=== PATIENT | female | born 1950 | race Caucasian/White ===

== ENCOUNTER → 2024-06-13 | Outpatient (CLI) | payer MEDICARE, BC, SELFPAY ==
[2024-06-13 11:35] LABS: Basophils # (Auto) 0.1 Thou/mm3 (0.0-0.2); Basophils % (Auto) 1 % (0-2.5); Eosinophils # (Auto) 0.5 Thou/mm3 (0.0-0.5); Eosinophils % (Auto) 6 % (0-10); Hematocrit 39.1 % (36.0-46.0); Immature Granulocytes % (Auto) 0 % (0-0); Immature Granulocytes Auto 0.03 Thou/mm3 (0.00-0.00); Lymphocytes # (Auto) 2.3 Thou/mm3 (1.0-4.8); Lymphocytes % (Auto) 24 % (10-50); Mean Corpuscular HGB Conc 33.2 g/dl (31.0-37.0); Mean Corpuscular Hemoglobin 29.7 pg (25.0-35.0); Mean Corpuscular Volume 89 fL (80-100); Monocytes # (Auto) 0.5 Thou/mm3 (0.0-0.8); Monocytes % (Auto) 5 % (0-12); Neutrophils % (Auto) 64 % (37-80); Nucleated Red Blood Cell % 0 /100 WBC (0); Platelet Count 353 Thou/mm3 (140-440); Red Blood Count 4.38 Miln/mm3 (4.00-5.20); White Blood Count 9.5 Thou/mm3 (3.6-11.0)
[2024-06-13 11:50] LABS: Glucose Estimated Average 117 mg/dL (80-131); Hemoglobin A1C 5.7 % Hgb (4.8-6.0)
[2024-06-13 12:00] LABS: Alanine Aminotransferase 22 U/L (10-49); Albumin, Serum 4.7 gm/dL (3.4-4.8); Albumin/Globulin Ratio 1.8 (1.2-2.2); Alkaline Phosphatase 104 U/L (46-116); Anion Gap 6 (7-16); Aspartate Amino Transferase 18 U/L (0-34); BUN/Creatinine Ratio 12 Ratio (12-20); Bilirubin,Total 0.3 mg/dL (0.3-1.2); Blood Urea Nitrogen 15 mg/dL (9-23); Calcium 10.9 mg/dL (8.3-10.6); Calcium (Corrected) 10.9 mg/dL (8.5-10.1); Carbon Dioxide 27.3 mMol/L (20.0-31.0); Cardiac Risk Estimate 3.6 RATIO (3.7-5.6); Chloride 96 mMol/L (98-107); Cholesterol 193 mg/dL (132-200); Creatinine (Component) 1.3 mg/dL (0.6-1.3); Globulin 2.6 gm/dL (2.3-3.5); Glucose 95 mg/dL (74-106); HDL Cholesterol 54 mg/dL (40-60); LDL Cholesterol,Calculated 102 mg/dL (0-130); Osmolality,Calculated 259 (275-295); Potassium 4.9 mMol/L (3.4-5.1); Sodium 129 mMol/L (136-145); Total Protein 7.3 gm/dL (5.7-8.2); Triglycerides 185 mg/dL (30-150); eGFR 44 See Note
[2024-06-13 12:12] LABS: Ferritin 40 ng/mL (7.3-270.7); Iron 48 mcg/dL (50-170)
== END | disposition home or self-care (01) ==
LOC: COPL 10:32
PROVIDERS: PCP Family Medicine; Referring Provider Physician Assistant; Visit Provider Physician Assistant
DX: E11.9 Type 2 diabetes mellitus without complications (principal); I10 Essential (primary) hypertension; E78.5 Hyperlipidemia, unspecified; D50.9 Iron deficiency anemia, unspecified
CPT/HCPCS: 36415; 80053; 80061; 82728; 83036; 83540; 85025

== ENCOUNTER → 2024-06-20 | Outpatient (CLI) | payer MEDICARE, BC, SELFPAY ==
[2024-06-20 12:17] LABS: Collection Type, Urine Clean Catch
[2024-06-20 13:25] LABS: Bacteria,Urine 2+; Bilirubin,Urine Negative (Negative); Blood,Urine Trace (Negative); Color,Urine Lt-Yellow (Lt Yel-Yel); Glucose, Urine Negative (Negative); Ketones,Urine Negative (Negative); Leukocyte Esterase,Urine Positive (Negative); Nitrite,Urine Positive (Negative); PH,Urine 6.5 (5.0-7.0); Protein,Urine Trace (Neg - Trace); RBC,Urine 14 /hpf (0-3); Specific Gravity,Urine 1.008 (1.001-1.035); Squamous Epithelial Cell,Urine 1 /hpf (0-5); Urobilinogen,Urine Negative mg/dL (0.0-1.0); WBC,Urine 639 /hpf (0-5)
[2024-06-20 13:32] LABS: Clarity,Urine Hazy (Clear/Hazy)
== END | disposition home or self-care (01) ==
LOC: SLDO 12:10
PROVIDERS: PCP Physician Assistant; Referring Provider Physician Assistant; Visit Provider Physician Assistant
DX: N39.0 Urinary tract infection, site not specified (principal)
CPT/HCPCS: 81001; 87077; 87086; 87186

== ENCOUNTER → 2024-06-26 | Outpatient (CLI) | payer MEDICARE, BC, SELFPAY ==
[2024-06-25 12:29] LABS: Basophils # (Auto) 0.1 Thou/mm3 (0.0-0.2); Basophils % (Auto) 1 % (0-2.5); Eosinophils # (Auto) 0.4 Thou/mm3 (0.0-0.5); Eosinophils % (Auto) 3 % (0-10); Hematocrit 35.8 % (36.0-46.0); Immature Granulocytes % (Auto) 1 % (0-0); Immature Granulocytes Auto 0.06 Thou/mm3 (0.00-0.00); Lymphocytes # (Auto) 2.1 Thou/mm3 (1.0-4.8); Lymphocytes % (Auto) 18 % (10-50); Mean Corpuscular HGB Conc 33.5 g/dl (31.0-37.0); Mean Corpuscular Hemoglobin 29.3 pg (25.0-35.0); Mean Corpuscular Volume 87 fL (80-100); Monocytes # (Auto) 0.8 Thou/mm3 (0.0-0.8); Monocytes % (Auto) 7 % (0-12); Neutrophils % (Auto) 70 % (37-80); Nucleated Red Blood Cell % 0 /100 WBC (0); Platelet Count 353 Thou/mm3 (140-440); RDW Standard Deviation 39.3 fL (36.4-46.3); White Blood Count 11.3 Thou/mm3 (3.6-11.0)
[2024-06-25 12:36] LABS: Partial Thromboplastin Time 29.7 Seconds (22.0-36.0); Prothrombin Time 10.7 Seconds (9.0-12.2)
--- NOTE | 2024-06-26 08:30 | XR_ITS ---
Examination: Stereotactic guided vacuum assisted left breast biopsy with clip placement Specimen radiograph Date and time of exam:June 26, 2024 0954 hours INDICATIONS: Mammogram 05/05/2024 BI-RADS 4 suspicious microcalcifications 12 Position left breast Timeout performed, documenting correct patient, order, referring physician, patient's site and reason for procedure, allergies to medications Informed consent provided. Time out performed Technique: The lesion left breast was localized with a stereotactic apparatus. Local anesthesia was obtained after prepping the skin at the entrance site and applying sterile drape Maximum sterile barrier technique. 5 core biopsies were then obtained, vacuum assisted, stereotactically guided, at the lesion site. Specimens appear adequate. Stereotactic breast marker was introduced at the lesion site Estimated blood loss 2 cc. Patient tolerated the procedure well and appeared in satisfactory and stable condition at completion of the procedure Pathology report to follow Impression: Successful stereotactic breast biopsy as described above. Specimen radiograph contains the biopsied suspicious microcalcifications.
== END | disposition home or self-care (01) ==
LOC: CDIM 07:56
PROVIDERS: Radiology Diagnostic Radiology; PCP Physician Assistant; Referring Provider Physician Assistant; Visit Provider Physician Assistant
DX: N62 Hypertrophy of breast (principal); N60.12 Diffuse cystic mastopathy of left breast; R92.1 Mammographic calcification found on diagnostic imaging of breast; Z01.812 Encounter for preprocedural laboratory examination
CPT/HCPCS: 19081; 36415; 85025; 85610; 85730; A4648; A4649

== ENCOUNTER → 2024-07-15 | Outpatient (CLI) | payer MEDICARE, BC, SELFPAY ==
[2024-07-14 11:10] LABS: Basophils # (Auto) 0.1 Thou/mm3 (0.0-0.2); Basophils % (Auto) 1 % (0-2.5); Eosinophils # (Auto) 0.4 Thou/mm3 (0.0-0.5); Eosinophils % (Auto) 4 % (0-10); Hematocrit 38.4 % (36.0-46.0); Hemoglobin 12.9 g/dL (12.0-16.0); Immature Granulocytes % (Auto) 0 % (0-0); Immature Granulocytes Auto 0.03 Thou/mm3 (0.00-0.00); Lymphocytes # (Auto) 2.4 Thou/mm3 (1.0-4.8); Lymphocytes % (Auto) 27 % (10-50); Mean Corpuscular HGB Conc 33.6 g/dl (31.0-37.0); Mean Corpuscular Hemoglobin 29.8 pg (25.0-35.0); Mean Corpuscular Volume 89 fL (80-100); Monocytes # (Auto) 0.6 Thou/mm3 (0.0-0.8); Monocytes % (Auto) 7 % (0-12); Neutrophils # (Auto) 5.5 Thou/mm3 (1.8-7.7); Neutrophils % (Auto) 61 % (37-80); Nucleated Red Blood Cell % 0 /100 WBC (0); Platelet Count 359 Thou/mm3 (140-440); RDW Standard Deviation 39.6 fL (36.4-46.3); Red Blood Count 4.33 Miln/mm3 (4.00-5.20)
[2024-07-14 11:26] LABS: Partial Thromboplastin Time 32.3 Seconds (22.0-36.0); Prothrombin Time 10.7 Seconds (9.0-12.2)
--- NOTE | 2024-07-15 08:30 | XR_ITS ---
Examination: Stereotactic guided vacuum assisted left breast biopsy with clip placement Specimen radiograph Date and time of exam:July 15, 2024 0957 hours INDICATIONS: BI-RADS Category 4 suspicious microcalcifications left breast 2:00 position Timeout performed, documenting correct patient, order, referring physician, patient's site and reason for procedure, allergies to medications Informed consent provided. Time out performed Technique: The lesion left breast was localized with a stereotactic apparatus. Local anesthesia was obtained after prepping the skin at the entrance site and applying sterile drape Maximum sterile barrier technique. 5 core biopsies were then obtained, vacuum assisted, stereotactically guided, at the lesion site. Specimens appear adequate. Stereotactic breast marker was introduced at the lesion site Estimated blood loss 2 cc. Patient tolerated the procedure well and appeared in satisfactory and stable condition at completion of the procedure Pathology report to follow Impression: Successful stereotactic breast biopsy as described above. Specimen radiograph contains the biopsied suspicious microcalcifications.
[2024-07-15 08:50] LABS: Alanine Aminotransferase 18 U/L (10-49); Albumin, Serum 4.4 gm/dL (3.4-4.8); Albumin/Globulin Ratio 1.6 (1.2-2.2); Alkaline Phosphatase 94 U/L (46-116); Anion Gap 7 (7-16); Aspartate Amino Transferase 18 U/L (0-34); BUN/Creatinine Ratio 10 Ratio (12-20); Bilirubin,Total 0.4 mg/dL (0.3-1.2); Blood Urea Nitrogen 12 mg/dL (9-23); Carbon Dioxide 27.3 mMol/L (20.0-31.0); Chloride 98 mMol/L (98-107); Creatinine (Component) 1.2 mg/dL (0.6-1.3); Globulin 2.7 gm/dL (2.3-3.5); Glucose 106 mg/dL (74-106); Osmolality,Calculated 264 (275-295); Potassium 4.8 mMol/L (3.4-5.1); Sodium 132 mMol/L (136-145); Total Protein 7.1 gm/dL (5.7-8.2); eGFR 48 See Note
== END | disposition home or self-care (01) ==
LOC: CDIM 07-17 08:45
PROVIDERS: Radiology Diagnostic Radiology; PCP Physician Assistant; Referring Provider Surgery; Visit Provider Surgery
DX: D24.2 Benign neoplasm of left breast (principal); Z01.812 Encounter for preprocedural laboratory examination
CPT/HCPCS: 19081; 36415; 80053; 83970; 85025; 85610; 85730; A4648; A4649

== ENCOUNTER → 2024-09-19 | Outpatient (CLI) | payer MEDICARE, BC, SELFPAY ==
[2024-09-19 13:21] LABS: Basophils # (Auto) 0.1 Thou/mm3 (0.0-0.2); Basophils % (Auto) 1 % (0-2.5); Eosinophils # (Auto) 0.1 Thou/mm3 (0.0-0.5); Eosinophils % (Auto) 2 % (0-10); Hematocrit 38.1 % (36.0-46.0); Hemoglobin 13.2 g/dL (12.0-16.0); Immature Granulocytes % (Auto) 0 % (0-0); Immature Granulocytes Auto 0.02 Thou/mm3 (0.00-0.00); Lymphocytes % (Auto) 26 % (10-50); Mean Corpuscular HGB Conc 34.6 g/dl (31.0-37.0); Mean Corpuscular Volume 87 fL (80-100); Monocytes # (Auto) 0.4 Thou/mm3 (0.0-0.8); Monocytes % (Auto) 6 % (0-12); Neutrophils # (Auto) 5.2 Thou/mm3 (1.8-7.7); Neutrophils % (Auto) 66 % (37-80); Nucleated Red Blood Cell % 0 /100 WBC (0); Platelet Count 290 Thou/mm3 (140-440); RDW Standard Deviation 39.3 fL (36.4-46.3); White Blood Count 7.8 Thou/mm3 (3.6-11.0)
[2024-09-19 13:35] LABS: Alanine Aminotransferase 35 U/L (10-49); Albumin, Serum 4.3 gm/dL (3.4-4.8); Albumin/Globulin Ratio 1.8 (1.2-2.2); Alkaline Phosphatase 94 U/L (46-116); Anion Gap 6 (7-16); Aspartate Amino Transferase 30 U/L (0-34); BUN/Creatinine Ratio 13 Ratio (12-20); Bilirubin,Total 0.2 mg/dL (0.3-1.2); Blood Urea Nitrogen 13 mg/dL (9-23); Calcium 10.5 mg/dL (8.3-10.6); Calcium (Corrected) 10.5 mg/dL (8.5-10.1); Carbon Dioxide 26.6 mMol/L (20.0-31.0); Cardiac Risk Estimate 3.5 RATIO (3.7-5.6); Chloride 100 mMol/L (98-107); Cholesterol 208 mg/dL (132-200); Globulin 2.4 gm/dL (2.3-3.5); Glucose 96 mg/dL (74-106); HDL Cholesterol 59 mg/dL (40-60); LDL Cholesterol,Calculated 124 mg/dL (0-130); Osmolality,Calculated 266 (275-295); Potassium 5.2 mMol/L (3.4-5.1); Sodium 133 mMol/L (136-145); Total Protein 6.7 gm/dL (5.7-8.2); Triglycerides 126 mg/dL (30-150); eGFR 60 See Note
[2024-09-19 13:59] LABS: Glucose Estimated Average 117 mg/dL (80-131); Hemoglobin A1C 5.7 % Hgb (4.8-6.0)
[2024-09-19 15:13] LABS: Ferritin 56 ng/mL (7.3-270.7)
[2024-09-19 15:24] LABS: Iron 46 mcg/dL (50-170)
== END | disposition home or self-care (01) ==
LOC: COPL 12:18
PROVIDERS: PCP Physician Assistant; Referring Provider Physician Assistant; Visit Provider Physician Assistant
DX: I10 Essential (primary) hypertension (principal); E11.9 Type 2 diabetes mellitus without complications; E78.5 Hyperlipidemia, unspecified; D50.9 Iron deficiency anemia, unspecified
CPT/HCPCS: 36415; 80053; 80061; 82728; 83036; 83540; 85025

== ENCOUNTER → 2024-10-16 | Outpatient (CLI) | payer MEDICARE, BC, SELFPAY ==
[2024-10-16 18:11] LABS: Alanine Aminotransferase 38 U/L (10-49); Albumin, Serum 4.5 gm/dL (3.4-4.8); Albumin/Globulin Ratio 1.9 (1.2-2.2); Alkaline Phosphatase 90 U/L (46-116); Anion Gap 8 (7-16); Aspartate Amino Transferase 29 U/L (0-34); BUN/Creatinine Ratio 13 Ratio (12-20); Bilirubin,Total 0.4 mg/dL (0.3-1.2); Blood Urea Nitrogen 15 mg/dL (9-23); Calcium 10.8 mg/dL (8.3-10.6); Calcium (Corrected) 10.8 mg/dL (8.5-10.1); Carbon Dioxide 24.7 mMol/L (20.0-31.0); Chloride 95 mMol/L (98-107); Creatinine (Component) 1.2 mg/dL (0.6-1.3); Globulin 2.4 gm/dL (2.3-3.5); Glucose 92 mg/dL (74-106); Osmolality,Calculated 257 (275-295); Potassium 4.9 mMol/L (3.4-5.1); Sodium 128 mMol/L (136-145); Total Protein 6.9 gm/dL (5.7-8.2); eGFR 48 See Note
== END | disposition home or self-care (01) ==
PROVIDERS: PCP Physician Assistant; Referring Provider Physician Assistant; Visit Provider Physician Assistant
DX: E87.5 Hyperkalemia (principal)
CPT/HCPCS: 36415; 80053

== ENCOUNTER 2024-10-26 09:38 | Inpatient (IN) | payer MEDICARE, BC, SELFPAY ==
[2024-10-26] VITALS (8 sets, daily range): BP systolic 113–182; BP diastolic 55–92; PULSE 82–114; RESP 16–96; TEMP 36–36.9; O2SAT 91–99; BMI 27.3
--- NOTE | 2024-10-26 10:25 | XR_ITS ---
EXAMINATION: Abdomen, upright single view Technique: Abdomen AP upright, single view Date and time of exam: October 26, 2024 0930 hours INDICATIONS: Abdominal pain nausea today FINDINGS: Small bowel differential air-fluid levels in the central abdomen Moderate stool in the rectum No free air IMPRESSION: Small bowel obstruction pattern, consider CT scan abdomen and pelvis post intravenous contrast follow-up
--- NOTE | 2024-10-26 10:25 | EKG_ITS ---
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
--- NOTE | 2024-10-26 10:30 | PD.EDRME ---
Rapid Medical Screening Exam RME Arrival date/time: 10/26/24 09:38 This is a 74-year-old female presents to the emergency department complaints of epigastric abdominal pain nausea and vomiting since 2 AM. History of DM. I have greeted and performed a focused initial assessment of this patient. Initial appropriate labs ordered at this time. A comprehensive ED assessment and evaluation of the patient and analysis of all test and completion of medical decision making process will be conducted by additional ED provider. Chief Complaint: Abdominal Pain Time Seen by Provider: 10/26/24 10:16 Vital signs: Vital Signs Temperature 97.7 F 10/26/24 10:07 Pulse Rate 86 10/26/24 10:07 Respiratory Rate 30 H 10/26/24 10:07 Blood Pressure 182/84 H 10/26/24 10:07 Pulse Oximetry (%) 97 10/26/24 10:07 Oxygen Delivery Method Room Air 10/26/24 10:07
--- NOTE | 2024-10-26 10:31 | XR_ITS ---
Examination: Abdomen sonogram, Limited Date and time of exam: October 26, 2024 at 1040 hours INDICATIONS: Epigastric pain and vomiting beginning today Technique: Real-time hawthorne scale transabdominal sonographic images of the upper abdomen obtained. Findings: Gallstones and gallbladder sludge Gallbladder wall 0.38 cm no edema Common bile flexor 0.5 cm Pancreatic head 1.6 cm Liver 15.7 cm no focal liver lesions, fatty infiltration is present Normal hepatopedal portal venous flow Patent IVC IMPRESSION: Cholelithiasis Abnormal thickening of the gallbladder wall 0.38 cm, consider HIDA scan or MRCP follow-up as clinically warranted
--- NOTE | 2024-10-26 10:32 | XR_ITS ---
Examination: CT abdomen and pelvis without contrast. Coronal 3-D reconstructions. Sagittal 2-D reconstructions. Date and time of exam:March 28, 2025 at 10:44 AM INDICATIONS: Upper abdominal pain onset today, history nephrectomy, left 4 solid left renal tumor 5.[address] March 08, 2023 CTDI: vol (mGy): 8.25 DLP: (mGycm): 477 Technique: Axial images of the abdomen have been obtained, 3 mm slice thickness Intravenous contrast material has not been administered. Low dose protocols were performed. One or more of the following dose reduction techniques were used; automated exposure control, adjustment of the mA and/or KV according to patient size, use of iterative reconstruction technique. Findings: Minimal pericardial effusion Liver mildly irregular in contour No gallstones No pancreatic or adrenal mass Absent left kidney No right renal mass Multiple prominently fluid distended small bowel loops. Heavy abdominal aortic calcification Appendix does not appear enlarged No diverticulitis No pelvic mass Urinary bladder is intact Significant degenerative disc disease L4-L5 IMPRESSION: High-grade mechanical small bowel obstruction pattern, consider Gastrografin small bowel series follow-up
[2024-10-26] MEDS: ONDANSETRON INJ 2 MG/ML INJ 2 ML 4 MG IV (11:12)
[2024-10-26] MEDS: MORPHINE SULF INJ 10 MG/ML VIAL 5 MG IVP ×2 (11:13→12:11)
--- NOTE | 2024-10-26 11:33 | PD.EDABDPN ---
ED Abdominal Pain RME/HPI General Chief Complaint: Abdominal Pain Stated complaint: ABDOMINAL PAIN Time seen by provider: 10/26/24 10:16 Arrival date/time: 10/26/24 09:38 RME / HPI RME / HPI narrative: 10/26/24 09:38 This is a 74-year-old female presents to the emergency department complaints of epigastric abdominal pain nausea and vomiting since 2 AM. History of DM. I have greeted and performed a focused initial assessment of this patient. Initial appropriate labs ordered at this time. A comprehensive ED assessment and evaluation of the patient and analysis of all test and completion of medical decision making process will be conducted by additional ED provider. DR. SOLANO MAIN ED EVALUATION: 74 year old female presents to the Emergency Department accompanied by her with complaint of upper abdominal pain since 230 AM. Pain is described as aching and rated severe. Patient denies any of the following: back pain, shortness of breath, blood in the stools, or any other symptoms at this time. PMHx: Left nephrectomy due to renal cysts. Hypertension, hypercholesterolemia, diabetes type 2, and depression. Social Hx: No tobacco, alcohol, or substance use. Related Data Home Medications ?Medication ?Instructions ?Recorded ?Confirmed VALSARTAN/HYDROCHLOROTHIAZIDE 1 tab PO QAMAC ##0 11/10/14 05/05/24 (VALSARTAN-HCTZ 320-25 MG TAB) metformin 500 mg tablet 500 mg PO TID #0 tabs 11/10/14 05/05/24 (Glucophage) omeprazole 20 mg capsule,delayed 20 mg PO QDAY ##0 11/10/14 05/05/24 release (Prilosec) Aspirin Ec * (ECOTRIN *) 81 mg PO QDAY ##0 11/11/14 05/05/24 Cyanocobalamin (Vitamin B-12) ##0 11/11/14 05/05/24 (B-12) cholecalciferol (vitamin D3) 50 2,000 unit PO #0 caps 11/11/14 05/05/24 mcg (2,000 unit) capsule (D3-2000) aripiprazole 10 mg tablet 10 mg PO QDAY 03/12/23 05/05/24 duloxetine 30 mg capsule,delayed 30 mg PO QDAY 03/12/23 05/05/24 release pioglitazone 15 mg tablet 15 mg PO QDAY 08/27/23 05/05/24 Allergies Allergy/AdvReac Type Severity Reaction Status Date / Time No Known Allergies Allergy Unverified 10/26/24 11:43 Review of Systems Review of Systems Systems Reviewed: All systems reviewed, normal except as documented Narrative Review of Systems: Constitutional: DENIES: fevers; Eyes: DENIES: loss of vision; Head/Ear/Nose: DENIES: loss of hearing. Throat: DENIES: dysphagia. Cardiovascular: DENIES: chest pain, dyspnea, or syncope. Respiratory: DENIES: shortness of breath; Gastrointestinal: POSITIVES: upper abdominal pain DENIES: rectal bleeding or melena. Genitourinary: DENIES: dysuria (painful or difficult urination); Musculoskeletal: DENIES: arthralgia (pain in a joint); Skin: DENIES: rash; Neurological: DENIES: loss of function or movement; Psychiatric: DENIES: recent major life stressor, emotional problem, illicit drug use or abuse; Endocrinology: DENIES: weight change,; Hematologic/Lymphatic: DENIES: abnormal bruising. Allergic/Immunologic: DENIES: urticaria (hives). Past Medical History Past Medical History CARDIAC: Positive Heart Murmur, Hypercholesterolemia and Hypertension RESPIRATORY: Positive Bronchitis and Pneumonia REPRODUCTIVE: Positive Previous Pregnancies (2) ENDOCRINE: Positive Diabetes Mellitus Type 2 PSYCHO/SOCIAL: Positive Depression Social History SMOKING STATUS: Never smoker SUBSTANCE USE: does not use ALCOHOL: Never ED Exam Narrative Physical exam: Physical Exam: General: The vital signs were reviewed. The patient is non-toxic, in no apparent distress and appears healthy with a patent airway, no respiratory distress and has no apparent circulatory problems. Head & Scalp: Normocephalic, atraumatic. Face: Appears normal and is without lesions, deformity. Ears: Left external pinna appears normal. Right external pinna appears normal. Eyes: The sclera is anicteric. No obvious photophobia. The Left and Right Orbit/Lid/Conjunctiva appears normal without swelling, discoloration or injection. Nose: The nose is without deformity, discharge or tenderness; Throat: Appears normal. The mucous membranes are pink and moist without exudates, redness or mass seen. The tongue appears normal. Neck: The neck is supple and no apparent mass or adenopathy. Chest: The chest wall is normal in size and symmetry and has no chest wall tenderness or crepitus. The patient displays normal ventilator effort without retractions, accessory muscle use and has adequate air movement bilaterally with no wheezes and no rales. Cardiovascular: Regular rate and rhythm; No murmurs, rubs, or gallops; Gastrointestinal: The abdomen appears normal. No obvious hernias or mass. The abdomen has exquisite central abdominal pain with hypoactive bowel sounds. Pain appears to be more upper central abdominal pain but also has pain when you push on the left lower quadrant also. She does guard. Bowel sounds are present and normal sounding. No CVA tenderness. Genitourinary: Back/Spine: Normal nontender Extremities/Musculoskeletal/lymphatic: The bilateral upper and lower extremities are warm. There is no evidence of arterial insufficiency. There is no evidence of venous insufficiency/edema. The patient spontaneously moves bilateral upper and lower extremities with no pain and no limitation of movement. There is no apparent, injury or trauma. Skin: The skin is warm, dry and intact. No rashes. No petechia. No purpura. No abnormal bruising. The color is appropriate with no cyanosis. Mental status/Psychiatric: Mental status is appropriate for age. The patient has no apparent delusions, visual hallucinations, no apparent audible hallucinations. The patient has no apparent suicidal thoughts/ideation and no apparent homicidal thoughts/ideation. Neurological: The patient is awake, alert, interactive, cordial, cooperative and is oriented to name and situation. The patient follows commands and answers historical question with no impairment. There is no visual disturbance apparent. The pupils are equal and reactive bilaterally with normal eye movements and no diplopia The bilateral upper and lower extremities have normal strength, normal range of motion and normal functioning. The gait, station and balance appear to be baseline with no acute change Course Quality Measures none Orders Category Date Time Status Admit to Inpatient Status Routine Admission 10/26/24 13:48 Active Patient Condition Routine Admission 10/26/24 13:48 Ordered Activity as Tolerated Routine Care 10/26/24 13:49 Ordered Bedside Blood Glucose Q6HR Care 10/26/24 13:[address] Screening NOW Care 10/26/24 11:40 Active EKG (ED ONLY) *Do not use* NOW Care 10/26/24 10:25 Completed Insert IV NOW Care 10/26/24 10:24 Active NG / OG Tube to LIS NOW Care 10/26/24 12:22 Completed NPO STAT Care 10/26/24 10:25 Active Notify provider NEEDED Care 10/26/24 13:[address] abdomen pelvis wo con Stat Exams 10/26/24 10:32 Completed EKG (ED Only) Stat Exams 10/26/24 10:25 Draft US gall bladder Stat Exams 10/26/24 10:31 Completed XR abdomen upright Stat Exams 10/26/24 10:25 Completed XR chest 1V post procedure Stat Exams 10/26/24 12:47 Completed Beta HCG,Quantitative Stat Lab 10/26/24 11:05 Completed Blood Culture (Lab) Stat Lab 10/26/24 12:20 Received CBC AM DRAW Lab 10/27/24 05:00 Ordered CBC AM DRAW Lab 10/28/24 05:00 Ordered CBC AM DRAW Lab 10/29/24 05:00 Ordered CBC Stat Lab 10/26/24 11:05 Completed Comprehensive Metabolic Panel AM DRAW Lab 10/27/24 05:00 Ordered Comprehensive Metabolic Panel AM DRAW Lab 10/28/24 05:00 Ordered Comprehensive Metabolic Panel AM DRAW Lab 10/29/24 05:00 Ordered Comprehensive Metabolic Panel Stat Lab 10/26/24 11:05 Completed Glycohemoglobin w (eAG) AM DRAW Lab 10/27/24 05:00 Ordered Lactate (Lactic Acid) Stat Lab 10/26/24 12:13 Results Lipase Stat Lab 10/26/24 11:05 Completed Lipid Panel AM DRAW Lab 10/27/24 05:00 Ordered Magnesium AM DRAW Lab 10/27/24 05:00 Ordered Magnesium AM DRAW Lab 10/28/24 05:00 Ordered Magnesium AM DRAW Lab 10/29/24 05:00 Ordered Magnesium Stat Lab 10/26/24 11:05 Completed Partial Thromboplastin Time Stat Lab 10/26/24 11:05 Completed Phosphorous AM DRAW Lab 10/27/24 05:00 Ordered Phosphorous AM DRAW Lab 10/28/24 05:00 Ordered Phosphorous AM DRAW Lab 10/29/24 05:00 Ordered Prothrombin Time with INR Stat Lab 10/26/24 11:05 Completed Thyroid Stimulating Hormone AM DRAW Lab 10/27/24 05:00 Ordered Troponin I Stat Lab 10/26/24 11:05 Completed Urinalysis Stat Lab 10/26/24 10:25 Ordered Venous Blood Gas Stat Lab 10/26/24 12:13 Completed Dextrose 50% Syr [D50w Syringe Abboject] Med 10/26/24 13:54 Active 25 ml IV Q15MIN PRN Dextrose 50% Syr [D50w Syringe Abboject] Med 10/26/24 13:54 Ordered 50 ml IV Q15MIN PRN Glucagon Inj Med 10/26/24 13:54 Ordered 1 mg IM Q15MIN PRN HYDROmorphone INJ [Dilaudid Inj] Med 10/26/24 13:48 Ordered 0.25 mg IVP Q2H PRN HYDROmorphone INJ [Dilaudid Inj] Med 10/26/24 13:54 Ordered 1 mg IVP Q4H PRN Heparin Inj Med 10/26/24 14:00 Ordered 5,000 unit SC Q8HR INSULIN LISPRO (AdmeLOG) [HumaLOG] Med 10/26/24 17:00 Ordered See Protocol SC AC Morphine Inj Med 10/26/24 10:24 Active 5 mg IVP Q1H PRN Ondansetron Inj [Zofran Inj] Med 10/26/24 13:48 Ordered 4 mg IV Q6H PRN Ondansetron Inj [Zofran Inj] Med 10/26/24 10:24 Discontinued 4 mg IV X1 ONE Pantoprazole Inj [Protonix Inj] Med 10/27/24 09:00 Ordered 40 mg IVP QDAY Sodium Chloride 0.9% 1000 ml [Ns] 1,000 ml Med 10/26/24 11:39 Active IV 150 mls/hr Sodium Chloride 0.9% 1000 ml [Ns] 2,000 ml Med 10/26/24 11:39 Discontinued IV 999 mls/hr Code Status Routine Oth 10/26/24 13:48 Ordered Oxygen Delivery PRN RT 10/26/24 13:48 Active Vital Signs Vital signs: Vital Signs Temperature 97.7 F 10/26/24 10:07 Pulse Rate 86 10/26/24 10:07 Respiratory Rate 30 H 10/26/24 10:07 Blood Pressure 182/84 H 10/26/24 10:07 Pulse Oximetry (%) 97 10/26/24 10:07 Oxygen Delivery Method Room Air 10/26/24 10:07 Abdominal Pain MDM MDM Narrative MDM Narrative:: Patient is a 74-year-old presents to the emergency department with intractable central abdominal pain that started at 230 this morning patient states it is severe and she has never had anything like this before. She did have a left nephrectomy years ago for renal cysts. Other than that she has no other abdominal history. There is been no injury or trauma she has no other complaint other than her abdominal pain. Medical workup reveals white count of 12.9 hemoglobin of 15.0 platelet count of 446 PT/INR within normal limits. Venous blood gas came back at 7.52 pCO2 of 20 sodium 128 potassium 4.2 chloride 97 CO2 came back at 16.8. Glucose slightly elevated 162 lactic acid elevated 2.8 calcium is elevated 11.3. Urinalysis is still pending as of [address] abdomen reveals a small bowel obstruction pattern with multiple small bowel loops. Ultrasound of the abdomen reveals cholelithiasis which clearly is a contributing factor but I suspect the bowel obstruction is the cause of most of her pain. Hospitalist was contacted and they will be admitting. We had a discussion and they agreed to contact the surgeon for me at this time. Because of the CT has a significant fluid-filled stomach and proximal small bowel NG tube was ordered and being placed. Mar Vargas, am scribing for and in the presence of Dr. Solano. Patient data External records reviewed:: [facility] previous records (Reviewed Urology note by Dr. Harris, dated 05/07/24.) Clinical information provided by:: patient and spouse Social determinants that could affect healthcare access:: none Patient has the following chronic illnesses:: Left nephrectomy due to renal cysts. Hypertension, hypercholesterolemia, diabetes type 2, and depression. How is presenting disease/condition affected by chronic disease/condition?: exacerbated by Evaluation data The following diagnostics were reviewed and interpreted by me:: lab results, radiology exam(s) and EKG tracing(s) (EKG#1: EKG at 1030 hours. Interpreted by me: sinus rhythm, rate 93, right bundle branch block, no STEMI) Lab and/or radiology exams considered but not ordered:: none Interpretation Summary: See above under MDM narrative. RADIOLOGY Procedure(s): CT abdomen pelvis wo [facility] Accession Number(s): [id number] cc: Van Pickard MD; Katie ([facility])Whitney~ Examination: CT abdomen and pelvis without contrast. Coronal 3-D reconstructions. Sagittal 2-D reconstructions. Date and time of exam:March 28, 2025 at 10:44 AM INDICATIONS: Upper abdominal pain onset today, history nephrectomy, left 4 solid left renal tumor 5.[address] March 08, 2023 CTDI: vol (mGy): 8.25 DLP: (mGycm): 477 Technique: Axial images of the abdomen have been obtained, 3 mm slice thickness Intravenous contrast material has not been administered. Low dose protocols were performed. One or more of the following dose reduction techniques were used; automated exposure control, adjustment of the mA and/or KV according to patient size, use of iterative reconstruction technique. Findings: Minimal pericardial effusion Liver mildly irregular in contour No gallstones No pancreatic or adrenal mass Absent left kidney No right renal mass Multiple prominently fluid distended small bowel loops. Heavy abdominal aortic calcification Appendix does not appear enlarged No diverticulitis No pelvic mass Urinary bladder is intact Significant degenerative disc disease L4-L5 IMPRESSION: High-grade mechanical small bowel obstruction pattern, consider Gastrografin small bowel series follow-up Dictated By: Van Pickard MD Procedure(s): US gall bladder Accession Number(s): [id number] cc: Van Pickard MD; Katie [facility] ENRIQUE~ Examination: Abdomen sonogram, Limited Date and time of exam: October 26, 2024 at 1040 hours INDICATIONS: Epigastric pain and vomiting beginning today Technique: Real-time hawthorne scale transabdominal sonographic images of the upper abdomen obtained. Findings: Gallstones and gallbladder sludge Gallbladder wall 0.38 cm no edema Common bile flexor 0.5 cm Pancreatic head 1.6 cm Liver 15.7 cm no focal liver lesions, fatty infiltration is present Normal hepatopedal portal venous flow Patent IVC IMPRESSION: Cholelithiasis Abnormal thickening of the gallbladder wall 0.38 cm, consider HIDA scan or MRCP follow-up as clinically warranted Dictated By: Van Pickard MD Procedure(s): XR abdomen upright Accession Number(s): [id number] cc: Van Pickard MD; Katie ([facility])Whitney ENRIQUE~ EXAMINATION: Abdomen, upright single view Technique: Abdomen AP upright, single view Date and time of exam: October 26, 2024 0930 hours INDICATIONS: Abdominal pain nausea today FINDINGS: Small bowel differential air-fluid levels in the central abdomen Moderate stool in the rectum No free air IMPRESSION: Small bowel obstruction pattern, consider CT scan abdomen and pelvis post intravenous contrast follow-up Dictated By: Van Pickard MD Medications / Prescriptions Medications or Prescriptions considered but not ordered:: none Medication administrations:: Medication Administration History Dextrose (Dextrose 50%-Water Inj 50 Ml Syringe) 25 ml IV Q15MIN PRN PRN Reason: BG 50-70 responsive npo pt Stop: 11/25/24 13:53 Dextrose (Dextrose 50%-Water Inj 50 Ml Syringe) 50 ml IV Q15MIN PRN PRN Reason: BG <50 OR BG <70 & pt unresponsive Stop: 11/25/24 13:53 Glucagon (Glucagon Inj 1 Mg Vial) 1 mg IM Q15MIN PRN PRN Reason: BG <70, and no IV access Heparin Sodium (Porcine) (Heparin Sod Inj 5000 Unit/Ml Vial) 5,000 unit SC Q8HR MYKEL Stop: 11/09/24 13:59 Hydromorphone HCl (Hydromorphone Inj 2 Mg/Ml Vial) 0.25 mg IVP Q2H PRN PRN Reason: Pain 1-3 Stop: 10/31/24 13:47 Hydromorphone HCl (Hydromorphone Inj 2 Mg/Ml Vial) 1 mg IVP Q4H PRN PRN Reason: 4-10 Stop: 10/31/24 13:53 Sodium Chloride (Ns) 1,000 mls @ 150 mls/hr IV .Q6H40M ONE Stop: 10/26/24 18:18 Last Admin: 10/26/24 12:27 Dose: 150 mls/hr Documented By: [facility]MU Insulin Human Lispro (Insulin Lispro (Admelog) 1 Unit/0.01 Ml Unit) 0 unit SC [facility]; Protocol Stop: 11/25/24 16:59 Morphine Sulfate (Morphine Sulf Inj 10 Mg/Ml Vial) 5 mg IVP Q1H PRN PRN Reason: PAIN SCALE 4-10(Mod-Sev Last Admin: 10/26/24 12:11 Dose: 5 mg Documented By: Admin: 10/26/24 11:13 Dose: 5 mg Documented By: NEGRITO Ondansetron HCl (Ondansetron Inj 2 Mg/Ml Inj 2 Ml) 4 mg IV Q6H PRN; Protocol PRN Reason: NAUSEA OR VOMITING Stop: 11/25/24 13:47 Pantoprazole Sodium (Pantoprazole Inj 40 Mg Vial) 40 mg IVP QDAY [facility] Stop: 11/26/24 08:59 Discontinued Medications Sodium Chloride (Ns) 2,000 mls @ 999 mls/hr IV .Q2H1M ONE Stop: 10/26/24 13:39 Last Admin: 10/26/24 12:27 Dose: 999 mls/hr Documented By: UMU Ondansetron HCl (Ondansetron Inj 2 Mg/Ml Inj 2 Ml) 4 mg IV X1 ONE; Protocol Stop: 10/26/24 10:25 Last Admin: 10/26/24 11:12 Dose: 4 mg Documented By: NEGRITO see above Consultations Consultation(s) initiated? (list below): Yes Consultation #1 (Physician, Specialty, Details): Discussed test HPI, PMHx, lab, radiology results and/or management with hospitalist. Will admit for further evaluation and management. Accepts patient for admission. Time: 12:30 Diagnosis Differential diagnosis abdominal pain: abdominal pain, constipation, small bowel obstruction and other (Cholelithiasis) Most likely diagnosis given after review of the tests above:: SMO Cholelithiasis Intractable abdominal pain Hypercalcemia Low serum bicarbonate Admission Indicated Admission indicated?: indicated Admission Request Was there a request for admission?: Yes Admission Attestation Admission request attestation: Discussed case with [] from Hospitalist service regarding admission. Discussed patients ED course, exam findings, labs, and radiology results. The Hospitalist [agrees,declines] to accept the patient for admission. Disposition Plan Disposition Plan: Admit Discharge Plan Plan Patient Disposition: Admit Acute Care w/in Hospital Disposition Comment: Hospitalist to admit Prescriptions/Referrals Prescriptions/Med Rec: No Action aripiprazole 10 mg tablet 10 mg PO QDAY duloxetine 30 mg capsule,delayed release(DR/EC) 30 mg PO QDAY pioglitazone 15 mg tablet 15 mg PO QDAY metformin [Glucophage] 500 MG tablet 500 mg PO TID Qty: 0 omeprazole [Prilosec] 20 MG capsule,delayed release(DR/EC) 20 mg PO QDAY Qty: 0 Patient Comments: TO SUPPRESS GASTRIC ACID SECRETIONS VALSARTAN/HYDROCHLOROTHIAZIDE (VALSARTAN-HCTZ 320-25 MG TAB) 1 EACH tablet 1 tab PO QAMAC Qty: 0 Aspirin Ec * (ECOTRIN *) 81 MG TABLET.DR 81 mg PO QDAY Qty: 0 cholecalciferol (vitamin D3) [D3-2000] 2,000 UNIT capsule 2,000 unit PO Qty: 0 Cyanocobalamin (Vitamin B-12) (B-12) 1,500 MCG TAB.RAPDIS Qty: 0 Referrals: Anika Antoine PA-C [Primary Care Provider] - In 1 week Problem List Clinical Impression: Small bowel obstruction, Cholelithiasis, Intractable abdominal pain, Hypercalcemia, Low serum bicarbonate Patient/Caregiver Discharge Instructions Print Language: [place] Stand Alone Forms: [employer] Award Info., Patient Portal Info Letter
[2024-10-26 11:35] LABS: Basophils # (Auto) 0.1 Thou/mm3 (0.0-0.2); Basophils % (Auto) 1 % (0-2.5); Eosinophils # (Auto) 0.2 Thou/mm3 (0.0-0.5); Eosinophils % (Auto) 2 % (0-10); Hematocrit 41.5 % (36.0-46.0); Immature Granulocytes % (Auto) 0 % (0-0); Immature Granulocytes Auto 0.05 Thou/mm3 (0.00-0.00); Lymphocytes # (Auto) 2.6 Thou/mm3 (1.0-4.8); Lymphocytes % (Auto) 20 % (10-50); Mean Corpuscular HGB Conc 36.1 g/dl (31.0-37.0); Mean Corpuscular Hemoglobin 29.8 pg (25.0-35.0); Mean Corpuscular Volume 82 fL (80-100); Monocytes # (Auto) 0.8 Thou/mm3 (0.0-0.8); Monocytes % (Auto) 6 % (0-12); Neutrophils # (Auto) 9.2 Thou/mm3 (1.8-7.7); Neutrophils % (Auto) 71 % (37-80); Nucleated Red Blood Cell % 0 /100 WBC (0); Platelet Count 446 Thou/mm3 (140-440); Red Blood Count 5.04 Miln/mm3 (4.00-5.20); White Blood Count 12.9 Thou/mm3 (3.6-11.0)
[2024-10-26 11:53] LABS: Prothrombin Time 10.5 Seconds (9.0-12.2)
[2024-10-26 11:55] LABS: Alanine Aminotransferase 29 U/L (10-49); Albumin, Serum 4.8 gm/dL (3.4-4.8); Albumin/Globulin Ratio 1.6 (1.2-2.2); Alkaline Phosphatase 98 U/L (46-116); Anion Gap 14 (7-16); Aspartate Amino Transferase 21 U/L (0-34); BUN/Creatinine Ratio 8 Ratio (12-20); Beta HCG,Quantitative 3 mIU/mL (<5.0); Bilirubin,Total 0.5 mg/dL (0.3-1.2); Blood Urea Nitrogen 9 mg/dL (9-23); Calcium 11.3 mg/dL (8.3-10.6); Calcium (Corrected) 11.3 mg/dL (8.5-10.1); Carbon Dioxide 16.8 mMol/L (20.0-31.0); Chloride 97 mMol/L (98-107); Creatinine (Component) 1.2 mg/dL (0.6-1.3); Estimated Creatinine Clearance 41.3 mL/min (>60); Glucose 162 mg/dL (74-106); Lipase 36 U/L (12-53); Magnesium 1.6 mg/dL (1.6-2.6); Osmolality,Calculated 259 (275-295); Potassium 4.2 mMol/L (3.4-5.1); Sodium 128 mMol/L (136-145); Total Protein 7.8 gm/dL (5.7-8.2); Troponin I < 0.020 ng/mL (0.0-0.045); eGFR 48 See Note
[2024-10-26] MEDS: SODIUM CHLORIDE 0.9% 1000 ML 1,000 ML 150 ML IV (12:27)
[2024-10-26] MEDS: SODIUM CHLORIDE 0.9% 1000 ML 2,000 ML 999 ML IV (12:27)
[2024-10-26 12:33] LABS: Lactate (Lactic Acid) 2.8 mMol/L (0.4-2.0)
[2024-10-26 12:34] LABS: Base Excess, Venous -4 (-3-3); O2 Saturation, Venous 97 % (96-97); PCO2, Venous 20 mmHg (36-56); PO2, Venous 72 mmHg (15-58); pH, Venous 7.52 (7.33-7.66)
--- NOTE | 2024-10-26 12:47 | XR_ITS ---
Examination: AP portable semiupright chest single view TECHNIQUE: AP portable semiupright chest single view Exam date and time: October 26, 2024 at 1152 hours Comparison July 05, 2023 INDICATIONS: Post orogastric tube placement FINDINGS: Orogastric tube coiled in the stomach satisfactory position Normal heart size Lungs are clear IMPRESSION: Orogastric tube coiled in the stomach satisfactory position
--- NOTE | 2024-10-26 14:42 | ESHP_ITS ---
<Statement entered by David Sutton MD - 10/26/24 17:04> Patient was seen and examined at the bedside. Patient was complaining of nausea vomiting and abdominal discomfort. Blood pressure was elevated this morning. Labs showed elevated white count. Hemoglobin was stable. Kidney functions at baseline with BUN/creatinine 9/1.2. Lactic acid was 2.8. Patient received 3 L fluid bolus and morphine. Ultrasound abdomen showed cholelithiasis and CT abdomen showed high-grade small bowel obstruction pattern. Patient is admitted for SBO workup. Currently on NG tube low intermittent suctioning having a lot of output around 400-500 cc. Will continue with NG tube to low intermittent suctioning and likely perform small bowel series once there is no output in the NG with LIS. All labs and orders were reviewed. I saw and examined the patient, and I agree with current management stated by Dr Luís MD,PGY1. Plan of care was discussed with the attending physician and resident physician. Disclaimer: Despite multiple revisions, due to the dictation software being used, the document bellow may not be free of grammatical errors including phonetic/typographic errors. However, this does not deter from our commitment to providing health care in the patient's best interest in mind. Dr. Alka MD, PGY 2 Documentation for date of: 10/26/24 HPI History of Present Illness History of present illness: Ms. Saunders is a 74-year-old female with past medical history significant for type 2 diabetes, hypertension, hyperlipidemia, depression and status post left nephrectomy presented to the ED complaining of nausea vomiting and epigastric abdominal pain. Patient states that for the past 3 weeks that she has been experiencing severe constipation, although she has been passing stool but it has been very very small (1 inch size). Patient states that initially she attributed to taking iron supplements causing the constipation but after she stopped taking the iron supplement she continued to have the constipation. Patient states that this has also caused early satiety for her and she is unable to eat very much and it leads to nausea. Patient changed her diabetes medication and switch to only using Mounjaro approximately 6 months ago and states that she has well-controlled diabetes with Mounjaro with A1c of 5.2 and has lost 35 pounds approximately in the last 6 months. Patient denies right upper quadrant abdominal pain, chest pain or palpitations. Patient states that she does feel little dizzy because she has not eaten anything since yesterday. Patient denies any urinary symptoms of dysuria or urgency. Pt states she underwent L. nephrectomy ED course In the ED initial blood pressure was 182/84, pulse is 86, respirations 30 and saturating at 98% on room air. Labs are significant for WBC 12.9 platelet 446, sodium 128, chloride 97, bicarb 16.8, GFR 48 glucose 162, lactic acid 2.8, calcium 11.3 VBG: pH 7.52, CO2 20, O2 72, VBG base excess -4 Images: Abdomenal Xray: Small bowel obstruction pattern CT of Abdomen/Pelvis: High-grade mechanical small bowel obstruction pattern Gallbladder ultrasound: Cholelithiasis EKG: Sinus rhythm In the ED Pt received 2L NS, morphine 4mg and Zofran and NG tube is placed by the ED with 250 cc or yellowish/brown output PMH: Type 2 diabetes, hypertension, hyperlipidemia, depression, status post left nephrectomy PSH: Left nephrectomy SH: Patient denies alcohol use, tobacco use or any drug history Home Meds: Mounjaro, losartan 320mg Qday , [id number] Qday, ezetimibe 10mg Qday, Ropirirole 4mg HS, Omeprazole DR 20mg Qday Review of Systems Review of Systems Systems Reviewed: All systems reviewed, normal except as documented Exam Vital Signs Temp Pulse Resp BP Pulse Ox O2 Del Method 97.5 F 99 18 179/92 H 99 Room Air 10/26/24 12:05 10/26/24 14:07 10/26/24 14:07 10/26/24 14:07 10/26/24 14:07 10/26/24 14:07 Narrative Exam GENERAL: A&Ox3, pleasant , well kept elderly female NEURO: no focal neurological deficits HEENT: Atraumatic, Normocephalic. mucous membranes moist. Eyes open, symmetrical, & clear HEART: Normal Heart Sounds LUNGS: Clear to auscultation with no wheezing or crackles. ABDOMEN: soft, non-distended, mildy tender to palpation, bowel sounds heard, no guarding or rebound tenderness SKIN: No Rash or ecchymoses EXTREMITIES: No edema, tenderness, able to move all 4 extremities, pedal pulses palpated Results: Labs 10/26/24 11:05 10/26/24 11:05 Labs: Short CBC 10/26/24 Range/Units 11:05 WBC 12.9 H (3.6-11.0) Thou/mm3 Hgb 15.0 (12.0-16.0) g/dL Hct 41.5 (36.0-46.0) % Plt Count 446 H D (140-440) Thou/mm3 BMP 10/26/24 11:05 Sodium 128 L Potassium 4.2 Chloride 97 L Carbon Dioxide 16.8 L BUN 9 Creatinine 1.2 Glucose 162 H Calcium 11.3 H Cardiac Enzymes 10/26/24 Range/Units 11:05 Troponin I < 0.020 (0.0-0.045) ng/mL Liver Function 10/26/24 Range/Units 11:05 Total Bilirubin 0.5 (0.3-1.2) mg/dL AST 21 (0-34) U/L ALT 29 (10-49) U/L Alkaline Phosphatase 98 (46-116) U/L Albumin 4.8 (3.4-4.8) gm/dL ABG Interpretation ABG results: 10/26/24 12:13 VBG pH 7.52 VBG pCO2 20 L VBG pO2 72 H VBG Base Excess -4 L Quality Measures Quality Measures none Advance care planning discussed with:: patient Medications Home Medications and Allergies Home Medications ?Medication ?Instructions ?Recorded ?Confirmed ?Type VALSARTAN/HYDROCHLOROTHIAZIDE 1 tab PO QAMAC ##0 11/1010/26/24 History (VALSARTAN-HCTZ 320-25 MG TAB) omeprazole 20 mg capsule,delayed 20 mg PO QDAY ##0 02/1710/26/24 History release (Prilosec) Cyanocobalamin (Vitamin B-12) ##0 11/11/14 05/05/24 Hi story (B-12) cholecalciferol (vitamin D3) 50 2,000 unit PO DAILY #0 caps 11/11/14 10/26/24 History mcg (2,000 unit) capsule (D3-2000) duloxetine 30 mg capsule,delayed 30 mg PO QDAY 3 10/26/24 History release duloxetine 60 mg capsule,delayed 60 mg PO DAILY 10/26/24 History release ezetimibe 10 mg tablet 10 mg PO DAILY 10/26/2410/05 History ropinirole 2 mg tablet 4 mg PO DAILY 10/26/2410/26 History tirzepatide 15 mg/0.5 mL 12.5 mg subcut QWEEK 5 10/26/24 History subcutaneous pen injector (Darrell) Allergies Allergy/AdvReac Type Severity Reaction Status Date / Time No Known Allergies Allergy Unverified 10/26/24 11:43 Visit Medications Dextrose (Dextrose 50%-Water Inj 50 Ml Syringe) 25 ml IV Q15MIN PRN PRN Reason: BG 50-70 responsive npo pt Stop: 11/25/24 13:53 Dextrose (Dextrose 50%-Water Inj 50 Ml Syringe) 50 ml IV Q15MIN PRN PRN Reason: BG <50 OR BG <70 & pt unresponsive Stop: 11/25/24 13:53 Glucagon (Glucagon Inj 1 Mg Vial) 1 mg IM Q15MIN PRN PRN Reason: BG <70, and no IV access Heparin Sodium (Porcine) (Heparin Sod Inj 5000 Unit/Ml Vial) 5,000 unit SC Q8HR MYKEL Stop: 11/09/24 13:59 Hydromorphone HCl (Hydromorphone Inj 2 Mg/Ml Vial) 0.25 mg IVP Q2H PRN PRN Reason: Pain 1-3 Stop: 10/31/24 13:47 Hydromorphone HCl (Hydromorphone Inj 2 Mg/Ml Vial) 1 mg IVP Q4H PRN PRN Reason: 4-10 Stop: 10/31/24 13:53 Sodium Chloride (Ns) 1,000 mls @ 150 mls/hr IV .Q6H40M ONE Stop: 10/26/24 18:18 Last Admin: 10/26/24 12:27 Dose: 150 mls/hr Insulin Human Lispro (Insulin Lispro (Admelog) 1 Unit/0.01 Ml Unit) 0 unit SC AC [facility] [place]; Protocol Stop: 11/25/24 16:59 Labetalol HCl (Labetalol Inj 5 Mg/Ml Vial 20 Ml) 10 mg IVP Q6H PRN PRN Reason: SBP > 170 Stop: 11/25/24 13:55 Ondansetron HCl (Ondansetron Inj 2 Mg/Ml Inj 2 Ml) 4 mg IV Q6H PRN; Protocol PRN Reason: NAUSEA OR VOMITING Stop: 11/25/24 13:47 Pantoprazole Sodium (Pantoprazole Inj 40 Mg Vial) 40 mg IVP QDAY MYKEL Stop: 11/26/24 08:59 Discontinued Medications Sodium Chloride (Ns) 2,000 mls @ 999 mls/hr IV .Q2H1M ONE Stop: 10/26/24 13:39 Last Admin: 10/26/24 12:27 Dose: 999 mls/hr Morphine Sulfate (Morphine Sulf Inj 10 Mg/Ml Vial) 5 mg IVP Q1H PRN PRN Reason: PAIN SCALE 4-10(Mod-Sev Last Admin: 10/26/24 12:11 Dose: 5 mg Ondansetron HCl (Ondansetron Inj 2 Mg/Ml Inj 2 Ml) 4 mg IV X1 ONE; Protocol Stop: 10/26/24 10:25 Last Admin: 10/26/24 11:12 Dose: 4 mg Assessment & Plan Plan Ms. Saunders is a 74-year-old female with past medical history significant for type 2 diabetes, hypertension, hyperlipidemia, depression and status post left nephrectomy presented to the ED complaining of nausea vomiting and epigastric abdominal pain. Pt is admitted for further management of SBO. #Small bowel obstruction #Anion gap metabolic acidosis with compensatory respiratory alkalosis #Hyponatremia -Pt complained of epigarstric pain constipation for 3 weeks, with early satiety, nausea and 1 episode of vomiting -On admission Na 128 -VBG: PH 7.52, CO2 20 and bicarb is 16.8 -Abdomenal Xray: Small bowel obstruction pattern -CT of Abdomen/Pelvis: High-grade mechanical small bowel obstruction pattern -In the ED pt received 3 L fluids and NG tube is placed with 250 cc of brownish output Plan: -Continue with NG tube on suction, will trial of clamping if no output will start the small bowel series -if SBO dies not resolve and pt does not pass gas and have a BM will considered consulting General surgery -IV pain meds prn ordered -Zofran for entiemetic ordered #Non-Insulin dependent type 2 diabetes -Pt. home meds include majaouro -insulin sliding scale ordered -A1c ordered for am labs #Hypertension urgency -Pt states she did not take her home valsartan this morning -Bp on admission is 182/84 -will hold PO meds due to SBO requiring NG tube -Labetalol PRN ordered with SBP >170 #Hyperlipidemia #Depression -home meds include ezetimibe 10mg, ropirirole 4mg and duloxetine 90mg -Will home PO meds dur to SBO, will resume when able #Cholelithiasis -Gallbladder ultrasound: Cholelithiasis -Pt denies any RUQ pain or pain after eating -Pt will need to follow up outpatient with general surgery #CKD stage lll #s/p L. radical Nephrectomy -Pt had incidental findings of multiple benign tumors in the L. kidney, Pt underwent L. radical nephrectomy in 2022 -Pts. GFR since 2023 has remained in the 40's, on admission GFR is 48 -Avoid nephrotoxic and renally dose medications -Will continue to monitor daily CMP Health Maintenance Disposition: telemetry for SBO and HTN urgency requiring PRN labetalol pushes DVT Prophylaxis: Heparin 5000 units SC Q8 hrs GI Prophylaxis: Pantoprozol-40 IV Qday Diet: NPO Lines: Peripheral lines Code status: Full Assessment and plan discussed with my senior resident Dr. Sutton & attending physician Dr. Teresa Staley (PGY-1)- Internal medicine resident Attending Provider Attestation/Addendum I have discussed and was present for the essential components of the history, physical examination, diagnosis, and treatment plan with the resident. I agree with the patient's care as documented by the resident and amended herein by me. Logan Moore DO. Patient seen and evaluated in the emergency department. In short, 74-year-old female with significant past medical history of type 2 diabetes, hypertension, right nephrectomy, CKD, GERD and multidrug-resistant E. coli urinary tract infection, who presented to the ED for nausea, vomiting and constipation, subsequently admitted for high-grade small bowel obstruction. Early imaging demonstrated high-grade small bowel obstruction, cholelithiasis and a thickened gallbladder wall. Initial vitals included a blood pressure of 179/91, other vital signs stable, the patient was afebrile. Significant labs include a WBC of 12.9, sodium 128, bicarb 16.8 and a creatinine of 1.2 which appears to be her baseline. Calcium 11.3, lactic acid 2.8. Chest x-ray demonstrating vascular congestion. Patient will be admitted to telemetry, NG tube placed in the ED, small bowel series will be ordered. We will hold on surgical consultation at this time until small bowel series resolves. IVF ordered, pain control on board. Will stick with IV medications for blood pressure control for now. Will continue to monitor closely Although this document has been carefully reviewed, there may still be some phonetic and other typographical errors. These errors are purely grammatical due to imperfections in the software program and should not be construed in any way to compromise the substance of the patient's medical care during this visit.
[2024-10-26] MEDS: HYDROmorphone INJ 2 MG/ML VIAL 1 MG IVP ×2 (15:07→20:50)
[2024-10-26] MEDS: HEPARIN SOD INJ 5000 UNIT/ML VIAL SC ×2 (15:10→20:50)
[2024-10-26 15:29] LABS: Reflex Lactate? Y
[2024-10-26 15:44] LABS: Lactic Acid, 3 HR 1.7 mMol/L (0.4-2.0)
[2024-10-26] MEDS: Magnesium Sulfate 4 GM Ivpb 4 GM/50 ML BAG IV (16:08)
[2024-10-26] MEDS: HYDROmorphone INJ 2 MG/ML VIAL 0.25 MG IVP (16:36)
[2024-10-26] MEDS: INSULIN LISPRO (AdmeLOG) 1 UNIT/0.01 ML UNIT SC (16:40)
[2024-10-27] VITALS (10 sets, daily range): BP systolic 98–176; BP diastolic 59–79; PULSE 81–98; RESP 12–95; TEMP 36–36.7; O2SAT 88–100; BMI 26.6
[2024-10-27 06:04] LABS: Basophils # (Auto) 0.1 Thou/mm3 (0.0-0.2); Basophils % (Auto) 0 % (0-2.5); Eosinophils % (Auto) 0 % (0-10); Hematocrit 40.5 % (36.0-46.0); Immature Granulocytes % (Auto) 1 % (0-0); Immature Granulocytes Auto 0.08 Thou/mm3 (0.00-0.00); Lymphocytes # (Auto) 1.3 Thou/mm3 (1.0-4.8); Lymphocytes % (Auto) 8 % (10-50); Mean Corpuscular HGB Conc 34.6 g/dl (31.0-37.0); Mean Corpuscular Hemoglobin 30.2 pg (25.0-35.0); Mean Corpuscular Volume 87 fL (80-100); Monocytes # (Auto) 1.3 Thou/mm3 (0.0-0.8); Monocytes % (Auto) 8 % (0-12); Neutrophils # (Auto) 14.8 Thou/mm3 (1.8-7.7); Neutrophils % (Auto) 84 % (37-80); Nucleated Red Blood Cell % 0 /100 WBC (0); Platelet Count 388 Thou/mm3 (140-440); RDW Standard Deviation 40.3 fL (36.4-46.3); Red Blood Count 4.64 Miln/mm3 (4.00-5.20); White Blood Count 17.7 Thou/mm3 (3.6-11.0)
[2024-10-27 06:35] LABS: Alanine Aminotransferase 20 U/L (10-49); Albumin, Serum 3.6 gm/dL (3.4-4.8); Albumin/Globulin Ratio 1.5 (1.2-2.2); Alkaline Phosphatase 71 U/L (46-116); Anion Gap 9 (7-16); Aspartate Amino Transferase 20 U/L (0-34); BUN/Creatinine Ratio 10 Ratio (12-20); Bilirubin,Total 0.3 mg/dL (0.3-1.2); Blood Urea Nitrogen 14 mg/dL (9-23); Calcium (Corrected) 10.3 mg/dL (8.5-10.1); Carbon Dioxide 22.9 mMol/L (20.0-31.0); Cardiac Risk Estimate 3.3 RATIO (3.7-5.6); Chloride 101 mMol/L (98-107); Cholesterol 167 mg/dL (132-200); Creatinine (Component) 1.4 mg/dL (0.6-1.3); Globulin 2.4 gm/dL (2.3-3.5); Glucose 125 mg/dL (74-106); HDL Cholesterol 50 mg/dL (40-60); LDL Cholesterol,Calculated 87 mg/dL (0-130); Magnesium 2.3 mg/dL (1.6-2.6); Osmolality,Calculated 267 (275-295); Phosphorous 5.1 mg/dL (2.4-5.1); Potassium 5.6 mMol/L (3.4-5.1); Sodium 133 mMol/L (136-145); Thyroid Stimulating Hormone 2.59 uIU/mL (0.55-4.78); Triglycerides 150 mg/dL (30-150); eGFR 40 See Note
[2024-10-27 07:07] LABS: Glucose Estimated Average 111 mg/dL (80-131); Hemoglobin A1C 5.5 % Hgb (4.8-6.0)
--- NOTE | 2024-10-27 07:30 | XR_ITS ---
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
[2024-10-27] MEDS: HYDROmorphone INJ 2 MG/ML VIAL 1 MG IVP ×3 (07:37→21:34)
[2024-10-27] MEDS: SODIUM CHLORIDE 0.9% 1000 ML 1,000 ML 125 ML IV (07:43)
[2024-10-27] MEDS: PANTOPRAZOLE INJ 40 MG VIAL IVP (09:17)
[2024-10-27] MEDS: HEPARIN SOD INJ 5000 UNIT/ML VIAL SC ×2 (09:18→20:26)
--- NOTE | 2024-10-27 10:46 | PC.SS ---
Patient Nicole Saunders is a 74 Year old female admitted for SBO. SS met with patient at bedside to review Demographic information. Patient reports she lives at home with her who she reports is her surrogate decision maker, [phone]. Patient reports she does not utilize any source of DME to assist with ambulation. Patient is able to complete all ADL's independently. [facility]acy of choice [facility] and PCP is Anika Antoine. At time of discharge patient will return home. Patient's will provide transportation. Next of Kin , Kike Saunders Discharge Plan Home
[2024-10-27] MEDS: HYDROmorphone INJ 2 MG/ML VIAL 0.25 MG IVP ×3 (10:52→16:10)
[2024-10-27 10:57] LABS: Potassium 4.8 mMol/L (3.4-5.1)
--- NOTE | 2024-10-27 11:30 | XR_ITS ---
Examination: Abdomen AP single view Technique: AP portable supine abdomen, single view Exam date and time: October 27, 2024 1034 hours INDICATIONS: Abdominal pain and distention this week, 3 hour delayed film post small bowel series today FINDINGS: Distended proximal jejunal loops measuring up to 4 cm IMPRESSION: Small bowel obstruction pattern, delayed films will be obtained
--- NOTE | 2024-10-27 11:49 | ESPR_ITS ---
<Statement entered by David Sutton MD - 10/27/24 15:09> Patient was seen and examined at the bedside. No acute overnight events were reported. Patient had an NG output of 700 cc. Night residents started small bowel series however they were started early this morning. We are following up with abdominal x-rays however patient continues to have small bowel obstruction. Vitals were stable. WBC uptrending. BUN/creatinine at her baseline. Potassium was elevated and repeat was within normal limits. We started normal saline at 125 cc/h as patient is currently n.p.o. and sodium was low yesterday. If patient continues to have SBO we will likely consider consult consulting surgery tomorrow morning. All labs and orders were reviewed. I saw and examined the patient, and I agree with current management stated by Dr Luís MD,PGY1. Plan of care was discussed with the attending physician and resident physician. Disclaimer: Despite multiple revisions, due to the dictation software being used, the document bellow may not be free of grammatical errors including phonetic/typographic errors. However, this does not deter from our commitment to providing health care in the patient's best interest in mind. Dr. Lesley MD, PGY 2 Documentation for date of: 10/27/24 Subjective Subjective Interval history: Overnight team reported patient had 750 cc of output through the NG tube and clamped for 4 hours there was no output so small bowel series was ordered. Patient seen and examined at bedside this morning blood pressure is stable patient saturating on room air and states that she is feeling much better ,continues to have some epigastric pain but tolerable. Pt denies nausea or vomitting. Patient states that although she has not had any gas or bowel movement she has been burping a lot. Patient's labs are significant for mild leukocytosis WBC 17.7, sodium 133, potassium 5.6 and repeat potassium was 4.8, BUN 14 and creatinine 1.4. Patient is started on normal saline maintenance fluids. Will continue to monitor small bowel series images and if SBO does not resolve we will consult surgery tomorrow. Exam Vital Signs Temp Pulse Resp BP Pulse Ox O2 Del Method O2 Flow Rate 97.8 F 83 18 120/78 96 Nasal Cannula 2 10/27/24 08:00 10/27/24 08:00 10/27/24 08:00 10/27/24 08:00 10/27/24 08:00 10/27/24 08:00 10/27/24 08:00 Narrative Exam GENERAL: A&Ox3, pleasant , well kept elderly female NEURO: no focal neurological deficits HEENT: Atraumatic, Normocephalic. mucous membranes moist. Eyes open, symmetrical, & clear HEART: Normal Heart Sounds LUNGS: Clear to auscultation with no wheezing or crackles. ABDOMEN: soft, non-distended, mildy tender to palpation in the epigastric region, bowel sounds heard, no guarding or rebound tenderness SKIN: No Rash or ecchymoses EXTREMITIES: No edema, tenderness, able to move all 4 extremities, pedal pulses palpated Objective Labs 10/27/24 05:13 10/27/24 10:21 Labs: Laboratory Results - last 24 hr 10/26/24 10/26/24 10/26/24 11:05 12:13 15:38 WBC RBC Hgb Hct MCV MCH MCHC RDW Std Deviation Plt Count Neut % (Auto) Lymph % (Auto) [place] % (Auto) Eos % (Auto) Baso % (Auto) Neut # (Auto) Lymph # (Auto) [place] # (Auto) Eos # (Auto) Baso # (Auto) Immature Gran # (Auto) Absolute Nucleated RBC Immature Gran % Nucleated RBC % PT 10.5 INR 1.0 APTT 28.0 VBG pH 7.52 VBG pCO2 20 L VBG pO2 72 H VBG O2 Sat (Jorge) 97 VBG Base Excess -4 L Sodium 128 L Potassium 4.2 Chloride 97 L Carbon Dioxide 16.8 L Anion Gap 14 BUN 9 Creatinine 1.2 Estim Creat Clear Calc 41.3 L eGFR 48 L BUN/Creatinine Ratio 8 L Glucose [address] Glu mg/dL Hemoglobin A1c Calculated Osmolality 259 L Lactic Acid 2.8 H 1.7 Calcium 11.3 H Corrected Calcium 11.3 H Phosphorus Magnesium 1.6 Total Bilirubin 0.5 AST 21 ALT 29 Alkaline Phosphatase 98 Troponin I < 0.020 Total Protein 7.8 Albumin 4.8 Globulin 3.0 Albumin/Globulin Ratio 1.6 Triglycerides Cholesterol LDL Cholesterol, Calc HDL Cholesterol Cholesterol/HDL Ratio Lipase 36 TSH Beta HCG, Quant 3 10/27/24 10/27/24 05:13 10:21 WBC 17.7 H RBC 4.64 Hgb 14.0 Hct 40.5 MCV 87 MCH 30.2 MCHC 34.6 RDW Std Deviation 40.3 Plt Count 388 D Neut % (Auto) 84 H Lymph % (Auto) 8 L [place] % (Auto) 8 Eos % (Auto) 0 Baso % (Auto) 0 Neut # (Auto) 14.8 H Lymph # (Auto) 1.3 [place] # (Auto) 1.3 H Eos # (Auto) 0.0 Baso # (Auto) 0.1 Immature Gran # (Auto) 0.08 H Absolute Nucleated RBC 0.00 Immature Gran % 1 H Nucleated RBC % 0 PT INR APTT VBG pH VBG pCO2 VBG pO2 VBG O2 Sat (Jorge) VBG Base Excess Sodium 133 L Potassium 5.6 H D 4.8 D Chloride 101 Carbon Dioxide 22.9 Anion Gap 9 BUN 14 Creatinine 1.4 H Estim Creat Clear Calc 35.0 L eGFR 40 L BUN/Creatinine Ratio 10 L Glucose [address] Glu mg/dL 111 Hemoglobin A1c 5.5 Calculated Osmolality 267 L Lactic Acid Calcium 10.0 Corrected Calcium 10.3 H Phosphorus 5.1 Magnesium 2.3 Total Bilirubin 0.3 AST 20 ALT 20 Alkaline Phosphatase 71 D Troponin I Total Protein 6.0 Albumin 3.6 D Globulin 2.4 Albumin/Globulin Ratio 1.5 Triglycerides 150 Cholesterol 167 LDL Cholesterol, Calc 87 HDL Cholesterol 50 Cholesterol/HDL Ratio 3.3 L Lipase TSH 2.59 Beta HCG, Quant ABG Interpretation ABG results: 10/26/24 12:13 VBG pH 7.52 VBG pCO2 20 L VBG pO2 72 H VBG Base Excess -4 L Quality Measures Quality Measures VTE prophylaxis Advance care planning discussed with:: patient and other Assessment & Plan Assessment Current Active Medications: Generic Name Dose Route Start Last Admin Trade Name Freq PRN Reason Stop Dose Admin Dextrose 25 ml 10/26/24 13:54 Dextrose 50%-Water Inj 50 Ml Syringe IV 11/25/24 13:53 Q15MIN PRN BG 50-70 responsive npo pt Dextrose 50 ml 10/26/24 13:54 Dextrose 50%-Water Inj 50 Ml Syringe IV 11/25/24 13:53 Q15MIN PRN BG <50 OR BG <70 & pt unresponsive Glucagon 1 mg 10/26/24 13:54 Glucagon Inj 1 Mg Vial IM Q15MIN PRN BG <70, and no IV access Heparin Sodium (Porcine) 5,000 unit 10/26/24 21:00 10/27/24 09:18 Heparin Sod Inj 5000 Unit/Ml Vial SC 11/09/24 20:59 5,000 unit Q12HR MYKEL Administration Hydromorphone HCl 0.25 mg 10/26/24 13:48 10/27/24 10:52 Hydromorphone Inj 2 Mg/Ml Vial IVP 10/31/24 13:47 0.25 mg Q2H PRN Administration Pain 1-3 Hydromorphone HCl 1 mg 10/26/24 13:54 10/27/24 07:37 Hydromorphone Inj 2 Mg/Ml Vial IVP 10/31/24 13:53 1 mg Q4H PRN Administration 4-10 Sodium Chloride 1,000 mls @ 125 mls/hr 10/27/24 07:30 10/27/24 07:43 Ns IV 10/27/24 15:29 125 mls/hr .Q8H MYKEL Administration Insulin Human Lispro 0 unit 10/26/24 17:00 10/27/24 11:26 Insulin Lispro (Admelog) 1 Unit/0.01 Ml Unit SC 11/25/24 16:59 Not Given AC MYKEL Protocol Labetalol HCl 10 mg 10/26/24 13:56 Labetalol Inj 5 Mg/Ml Vial 20 Ml IVP 11/25/24 13:55 Q6H PRN SBP > 170 Ondansetron HCl 4 mg 10/26/24 13:48 Ondansetron Inj 2 Mg/Ml Inj 2 Ml IV 11/25/24 13:47 Q6H PRN NAUSEA OR VOMITING Protocol Pantoprazole Sodium 40 mg 10/27/24 09:00 10/27/24 09:17 Pantoprazole Inj 40 Mg Vial IVP 11/26/24 08:59 40 mg QDAY MYKEL Administration Plan Ms. Saunders is a 74-year-old female with past medical history significant for type 2 diabetes, hypertension, hyperlipidemia, depression and status post left nephrectomy presented to the ED complaining of nausea vomiting and epigastric abdominal pain. Pt is admitted for further management of SBO. #Small bowel obstruction #Anion gap metabolic acidosis with compensatory respiratory alkalosis #Hyponatremia -Pt complained of epigarstric pain constipation for 3 weeks, with early satiety, nausea and 1 episode of vomiting -On admission Na 128 -VBG: PH 7.52, CO2 20 and bicarb is 16.8 -Abdomenal Xray: Small bowel obstruction pattern -CT of Abdomen/Pelvis: High-grade mechanical small bowel obstruction pattern -In the ED pt received 3 L fluids and NG tube is placed with 250 cc of brownish output Plan: -total output through NG tube is 750cc, clamping trial successful started the small bowel series -SBO dies not resolve and pt does not pass gas and have a BM will considered consulting General surgery -IV pain meds prn ordered -Zofran for entiemetic ordered #Non-Insulin dependent type 2 diabetes -Pt. home meds include majaouro -insulin sliding scale ordered -A1c ordered for am labs #Hypertension urgency -Pt states she did not take her home valsartan this morning -Bp on admission is 182/84 -will hold PO meds due to SBO requiring NG tube -Labetalol PRN ordered with SBP >170 #Hyperlipidemia #Depression -home meds include ezetimibe 10mg, ropirirole 4mg and duloxetine 90mg -Will home PO meds dur to SBO, will resume when able #Cholelithiasis -Gallbladder ultrasound: Cholelithiasis -Pt denies any RUQ pain or pain after eating -Pt will need to follow up outpatient with general surgery #CKD stage lll #s/p L. radical Nephrectomy -Pt had incidental findings of multiple benign tumors in the L. kidney, Pt underwent L. radical nephrectomy in 2022 -Pts. GFR since 2023 has remained in the 40's, on admission GFR is 48 -Avoid nephrotoxic and renally dose medications -Will continue to monitor daily CMP Health Maintenance Disposition: telemetry for SBO and HTN urgency requiring PRN labetalol pushes DVT Prophylaxis: Heparin 5000 units SC Q8 hrs GI Prophylaxis: Pantoprozol-40 IV Qday Diet: NPO Lines: Peripheral lines Code status: Full Assessment and plan discussed with my senior resident Dr. Sutton & attending physician Dr. Teresa Staley (PGY-1)- Internal medicine resident Attending Provider Attestation/Addendum I have discussed and was present for the essential components of the history, physical examination, diagnosis, and treatment plan with the resident. I agree with the patient's care as documented by the resident and amended herein by me. Logan Moore DO. Patient seen and evaluated this AM. Vital signs stable, patient afebrile overnight, 74-year-old female admitted for SBO and possible PIPPA. Patient has NG tube in place on LIS, small bowel series ordered, 2 images thus far demonstrating SBO. Will follow-up with additional images, surgical consult in the a.m., urine cultures also pending, will continue IVF and pain control for now. Patient does however endorse significant improvement from previous day considering almost 750 mL out overnight of NG tube. Although this document has been carefully reviewed, there may still be some phonetic and other typographical errors. These errors are purely grammatical due to imperfections in the software program and should not be construed in any way to compromise the substance of the patient's medical care during this visit.
--- NOTE | 2024-10-27 12:58 | PC.SS ---
SS follow up note; Pending Small bowl Series.
--- NOTE | 2024-10-27 13:00 | XR_ITS ---
Examination: Abdomen AP single view Technique: AP portable supine abdomen, single view Exam date and time: October 27, 2024 11:30 PM INDICATIONS: 4.5 hour delayed film post small bowel series today, abdominal pain and distention this week. FINDINGS: Contrast in distended jejunal small bowel loops IMPRESSION: Small bowel obstruction pattern Delayed films will be obtained
--- NOTE | 2024-10-27 15:00 | XR_ITS ---
Examination: Abdomen AP single view Technique: AP portable supine abdomen, single view Exam date and time: October 27, 2024 at 1357 hours INDICATIONS: Abdominal pain and distention this week, 6.5 hour delayed film post small bowel series today FINDINGS: Significantly contrast distended small bowel loops IMPRESSION: High-grade mechanical small bowel obstruction pattern Recommend follow-up films 4:00 PM 6:00 PM 8:00 PM
--- NOTE | 2024-10-27 16:00 | XR_ITS ---
Examination: Abdomen AP single view Technique: AP portable supine abdomen, single view Exam date and time: October 27, 2024 1502 hours INDICATIONS: Abdominal distention and pain this week, 7.5 hour delayed film post small bowel series FINDINGS: High-grade mechanical small bowel obstruction, dilated jejunal contrast opacified loops IMPRESSION: High-grade mechanical small bowel obstruction
[2024-10-27] MEDS: RINGERS LACTATED 1000 ML 1,000 ML 125 ML IV ×2 (16:10→23:47)
--- NOTE | 2024-10-27 18:00 | XR_ITS ---
Examination: Abdomen AP single view Technique: AP portable supine abdomen, single view Exam date and time: October 27, 2024 1652 hours INDICATIONS: Abdominal pain and distention this week, 9.5 hour delayed film for small bowel series FINDINGS: High-grade mechanical small bowel obstruction pattern, contrast distended jejunal loops IMPRESSION: High-grade mechanical small bowel obstruction
--- NOTE | 2024-10-27 18:15 | PC.NURSE ---
Patient has not voided today, after bladder scan, patient had 619ml retention. Dr Chandrakant Montgomery notified. MD will input Q6 bladder scans and PRN straight catheter.
[2024-10-27 19:35] LABS: Collection Type, Urine Clean Catch
[2024-10-27 19:47] LABS: Bacteria,Urine Rare; Bilirubin,Urine Negative (Negative); Blood,Urine Negative (Negative); Clarity,Urine Clear (Clear/Hazy); Color,Urine Yellow (Lt Yel-Yel); Glucose, Urine Negative (Negative); Hyaline Casts,Urine < 1 /hpf (0-1); Ketones,Urine Negative (Negative); Leukocyte Esterase,Urine Positive (Negative); Nitrite,Urine Negative (Negative); PH,Urine 5.5 (5.0-7.0); Protein,Urine 1+ (Neg - Trace); RBC,Urine < 1 /hpf (0-3); Specific Gravity,Urine 1.014 (1.001-1.035); Squamous Epithelial Cell,Urine < 1 /hpf (0-5); Urobilinogen,Urine Negative mg/dL (0.0-1.0); WBC,Urine 66 /hpf (0-5)
--- NOTE | 2024-10-27 20:00 | XR_ITS ---
Examination: Abdomen AP single view Technique: AP portable supine abdomen, single view Exam date and time: October 27, 2024 1910 hours INDICATIONS: Abdominal pain and distention this week, 11.5 hour delayed film for small bowel series today FINDINGS: Contrast in distended proximal small bowel loops IMPRESSION: High-grade mechanical small bowel obstruction Recommend follow-up films 11:00 PM, 4:00 AM
[2024-10-27] MEDS: ONDANSETRON INJ 2 MG/ML INJ 2 ML 4 MG IV (20:47)
[2024-10-28] VITALS (18 sets, daily range): BP systolic 115–185; BP diastolic 51–97; PULSE 85–109; RESP 14–18; TEMP 36.2–36.8; O2SAT 95–100
[2024-10-28] MEDS: HYDROmorphone INJ 2 MG/ML VIAL 0.25 MG IVP ×5 (00:46→23:33)
[2024-10-28] MEDS: ONDANSETRON INJ 2 MG/ML INJ 2 ML 4 MG IV (03:35)
--- NOTE | 2024-10-28 04:00 | XR_ITS ---
Examination: Abdomen AP single view Technique: AP portable supine abdomen, single view Exam date and time: October 28, 2024 0250 hours INDICATIONS: Abdominal pain and distention this week, 19.5 hour delayed film post small bowel series yesterday FINDINGS: Contrast remains in the stomach and small bowel loops IMPRESSION: Small bowel obstruction pattern
[2024-10-28] MEDS: LABETALOL INJ 5 MG/ML VIAL 20 ML 10 MG IVP ×2 (04:50→11:52)
[2024-10-28 06:00] LABS: Basophils % (Auto) 0 % (0-2.5); Eosinophils % (Auto) 0 % (0-10); Hematocrit 37.5 % (36.0-46.0); Hemoglobin 12.6 g/dL (12.0-16.0); Immature Granulocytes % (Auto) 0 % (0-0); Immature Granulocytes Auto 0.08 Thou/mm3 (0.00-0.00); Lymphocytes # (Auto) 0.7 Thou/mm3 (1.0-4.8); Lymphocytes % (Auto) 3 % (10-50); Mean Corpuscular HGB Conc 33.6 g/dl (31.0-37.0); Mean Corpuscular Hemoglobin 29.9 pg (25.0-35.0); Mean Corpuscular Volume 89 fL (80-100); Monocytes # (Auto) 0.8 Thou/mm3 (0.0-0.8); Monocytes % (Auto) 4 % (0-12); Neutrophils # (Auto) 18.3 Thou/mm3 (1.8-7.7); Neutrophils % (Auto) 92 % (37-80); Nucleated Red Blood Cell % 0 /100 WBC (0); Platelet Count 346 Thou/mm3 (140-440); RDW Standard Deviation 42.6 fL (36.4-46.3); Red Blood Count 4.21 Miln/mm3 (4.00-5.20)
[2024-10-28 06:23] LABS: Alanine Aminotransferase 15 U/L (10-49); Albumin/Globulin Ratio 1.6 (1.2-2.2); Alkaline Phosphatase 73 U/L (46-116); Anion Gap 9 (7-16); Aspartate Amino Transferase 16 U/L (0-34); BUN/Creatinine Ratio 14 Ratio (12-20); Bilirubin,Total 0.3 mg/dL (0.3-1.2); Blood Urea Nitrogen 20 mg/dL (9-23); Calcium 11.2 mg/dL (8.3-10.6); Calcium (Corrected) 11.2 mg/dL (8.5-10.1); Carbon Dioxide 23.8 mMol/L (20.0-31.0); Chloride 103 mMol/L (98-107); Creatinine (Component) 1.4 mg/dL (0.6-1.3); Estimated Creatinine Clearance 35.2 mL/min (>60); Globulin 2.5 gm/dL (2.3-3.5); Glucose 170 mg/dL (74-106); Magnesium 1.9 mg/dL (1.6-2.6); Osmolality,Calculated 278 (275-295); Phosphorous 3.8 mg/dL (2.4-5.1); Potassium 4.8 mMol/L (3.4-5.1); Sodium 136 mMol/L (136-145); Total Protein 6.5 gm/dL (5.7-8.2); eGFR 40 See Note
--- NOTE | 2024-10-28 06:23 | PC.NURSE ---
bladder scan 439 ml volume, pt denies urge to urinate. no bladder distention/ tenderness noted. Dr Lawrence notified,new order given. pt refused in and out cath now. explanation given and pt verbalized understanding.
[2024-10-28] MEDS: RINGERS LACTATED 1000 ML 1,000 ML 125 ML IV (07:53)
[2024-10-28] MEDS: PANTOPRAZOLE INJ 40 MG VIAL IVP (08:39)
[2024-10-28] MEDS: HYDROmorphone INJ 2 MG/ML VIAL 1 MG IVP (08:39)
[2024-10-28] MEDS: HEPARIN SOD INJ 5000 UNIT/ML VIAL SC ×2 (08:39→21:01)
--- NOTE | 2024-10-28 09:39 | PC.SS ---
Update: Surgery is consulting. D/C date is pending.
[2024-10-28] MEDS: Magnesium Sulfate 2 GM Ivpb 2 GM/50 ML BAG IV (10:24)
--- NOTE | 2024-10-28 10:46 | PD.SURCONS ---
HPI Consult details Consult date: 10/28/24 Reason for consultation narrative: Abdominal pain with nausea and vomiting History of present illness: 74-year-old female with history of hypertension, diabetes, hypercholesterolemia and depression was admitted with abdominal pain with nausea and vomiting. Her symptoms started 2 days ago and has been getting progressively worse. Upon presentation a CT scan was obtained that revealed dilated loops of small bowel concerning for small bowel obstruction. An NG tube was placed and patient was admitted for further management. Small bowel series was obtained that shows persistent small bowel obstruction. Patient continues to have worsening pain and WBC is trending upwards. Review of Systems Constitutional Constitutional: Denies chills and Denies fever(s) Cardiovascular Cardiovascular: Denies chest pain Respiratory Respiratory: Denies cough Gastrointestinal Gastrointestinal: Reports abdominal pain, Reports nausea and Reports vomiting Genitourinary Genitourinary: Denies difficulty voiding Hematologic/Lymphatic Hematologic/Lymphatic: Denies easy bleeding and Denies easy bruising Past Medical History Surgical History OTHER SURGICAL HX: Robotic left nephrectomy, shoulder surgery, carpal tunnel release Social History SMOKING STATUS: Never smoker SUBSTANCE USE: does not use ALCOHOL: Never Meds Home Medications and Allergies Home Medications ?Medication ?Instructions ?Recorded ?Confirmed ?Type VALSARTAN/HYDROCHLOROTHIAZIDE 1 tab PO QAMAC ##0 11/10/14 10/26/24 History (VALSARTAN-HCTZ 320-25 MG TAB) omeprazole 20 mg capsule,delayed 20 mg PO QDAY ##0 11/10/14 10/26/24 History release (Prilosec) Cyanocobalamin (Vitamin B-12) ##0 11/11/14 05/05/24 History (B-12) cholecalciferol (vitamin D3) 50 2,000 unit PO DAILY #0 caps 11/11/14 10/26/24 History mcg (2,000 unit) capsule (D3-2000) duloxetine 30 mg capsule,delayed 30 mg PO QDAY 03/12/23 10/26/24 History release duloxetine 60 mg capsule,delayed 60 mg PO DAILY 10/26/24 10/26/24 History release ezetimibe 10 mg tablet 10 mg PO DAILY 10/26/24 10/26/24 History ropinirole 2 mg tablet 4 mg PO DAILY 10/26/24 10/26/24 History tirzepatide 15 mg/0.5 mL 12.5 mg subcut QWEEK 10/26/24 10/26/24 History subcutaneous pen injector (Mounjaro) Allergies Allergy/AdvReac Type Severity Reaction Status Date / Time No Known Allergies Allergy Unverified 10/26/24 11:43 Exam Vital Signs Temp Pulse Resp BP Pulse Ox O2 Del Method O2 Flow Rate 97.2 F 95 17 179/76 H 99 Nasal Cannula 1 10/28/24 08:00 10/28/24 08:00 10/28/24 08:00 10/28/24 08:00 10/28/24 08:00 10/28/24 08:00 10/28/24 08:00 Constitutional Constitutional: moderate distress Routine Abdominal Exam Comments: Abdomen is soft and distended, no obvious hernia defect. There are no bowel sounds at this time and she has tenderness to palpation throughout the abdomen. No rigidity at this time Results Results: Laboratory Laboratory results: results reviewed Results: Imaging Imaging narrative: CT scan of abdomen pelvis, abdominal x-ray images reviewed, radiologist interpretation noted Assessment & Plan Problem List (1) Intestinal adhesions [bands] with complete obstruction: Status: Acute Additional Assessment Additional comments: Complete small bowel obstruction likely from an adhesive band and responsive to NG tube decompression. Patient is having worsening pain with WBC trending upwards Plan Will take patient to the operating room for exploratory laparotomy, lysis of adhesions, possible bowel resection and possible ostomy. Risks include but not limited to infection, bleeding, injury to bowel, surround neurovascular structures, abdominal sepsis and or abdominal abscess, need for further procedure and or operation, incisional hernia, pneumonia, heart attack, stroke and discussed with the patient and her . Benefits alternatives explained to them, all their questions answered, they agreed and consented to proceed with the operation.
--- NOTE | 2024-10-28 15:13 | SUR.PHASEI ---
pt received from OR in recovery bay 1. pt asleep but responds to voice, breathing unlabored on nc 6l. v/s stable. pt dressing to abd cdi. report received from Dr. Hubbard and Kristine PAUL.
--- NOTE | 2024-10-28 15:14 | ESPR_ITS ---
<Statement entered by David Sutton MD - 10/28/24 16:05> Patient was seen and examined at the bedside. Overnight patient had a episode of vomiting. Blood pressure was constantly elevated. She was complaining of moderate discomfort in the abdomen and was not feeling well this morning. Labs showed uptrending white count. Chemistry panel was showing electrolyte unremarkable. Kidney functions showed BUN around 20 and creatinine 1.4 slightly uptrending. A1c came 5.5. Corrected calcium continues to remain elevated at 11.2. Small bowel series are consistent with small bowel obstruction pattern. Blood culture showing no growth. Surgeon, Dr Victoria will take the patient to operating room for exploratory laparotomy and lysis of adhesion possible bowel resection or ostomy. Patient was agreeable to the plan. Will continue with fluid resuscitation as patient is currently NPO. All labs and orders were reviewed. I saw and examined the patient, and I agree with current management stated by Dr Luís MD,PGY1. Plan of care was discussed with the attending physician and resident physician. Disclaimer: Despite multiple revisions, due to the dictation software being used, the document bellow may not be free of grammatical errors including phonetic/typographic errors. However, this does not deter from our commitment to providing health care in the patient's best interest in mind. Dr. Alka MD, PGY 2 Documentation for date of: 10/28/24 Subjective Subjective Interval history: Overnight team reported patient had an episode of vomiting however the NG tube was not started back on suctioning. Patient is seen and examined at bedside this morning, patient denies nausea however she does have abdominal discomfort and states that she does not feel very good. Bowel series x-rays are reviewed and contrast has not moved and remained in the stomach and proximal small bowel therefore consult to surgery is placed. Patient seen again in the afternoon had an episode of vomiting therefore surgery started NG on low intermittent suctioning patient is scheduled for surgery this afternoon for ex lap as patient has persistent SBO and has not resolved with the small bowel series. Blood pressure this morning is at 156/75 patient is saturating on room air. Significant labs include WBC 20.0 hemoglobin and hematocrit are stable and the remainder of labs are stable with calcium 11.2 patient is on maintenance IV fluids IV fluids. Exam Vital Signs Temp Pulse Resp BP Pulse Ox O2 Del Method O2 Flow Rate 98.1 F 95 16 185/97 H 96 Nasal Cannula 1 10/28/24 12:00 10/28/24 12:00 10/28/24 12:00 10/28/24 12:00 10/28/24 12:00 10/28/24 12:00 10/28/24 12:00 Narrative Exam GENERAL: A&Ox3, pleasant , well kept elderly female, appearing uncomfortable NEURO: no focal neurological deficits HEENT: Atraumatic, Normocephalic. mucous membranes moist. Eyes open, symmetrical, & clear HEART: Normal Heart Sounds LUNGS: Clear to auscultation with no wheezing or crackles. ABDOMEN: soft, non-distended, mildy tender to palpation in the epigastric region, bowel sounds heard, no guarding or rebound tenderness SKIN: No Rash or ecchymoses EXTREMITIES: No edema, tenderness, able to move all 4 extremities, pedal pulses palpated Objective Labs 10/29/24 05:04 10/29/24 05:04 Labs: Laboratory Results - last 24 hr 10/27/24 10/28/24 19:25 05:27 WBC 20.0 H RBC 4.21 Hgb 12.6 Hct 37.5 MCV 89 MCH 29.9 MCHC 33.6 RDW Std Deviation 42.6 Plt Count 346 D Neut % (Auto) 92 H Lymph % (Auto) 3 L [place] % (Auto) 4 Eos % (Auto) 0 Baso % (Auto) 0 Neut # (Auto) 18.3 H Lymph # (Auto) 0.7 L [place] # (Auto) 0.8 Eos # (Auto) 0.0 Baso # (Auto) 0.0 Immature Gran # (Auto) 0.08 H Absolute Nucleated RBC 0.00 Immature Gran % 0 Nucleated RBC % 0 Sodium 136 Potassium 4.8 Chloride 103 Carbon Dioxide 23.8 Anion Gap 9 BUN 20 Creatinine 1.4 H Estim Creat Clear Calc 35.2 L eGFR 40 L BUN/Creatinine Ratio 14 Glucose 170 H Calculated Osmolality 278 Calcium 11.2 H Corrected Calcium 11.2 H Phosphorus 3.8 Magnesium 1.9 Total Bilirubin 0.3 AST 16 ALT 15 Alkaline Phosphatase 73 Total Protein 6.5 Albumin 4.0 Globulin 2.5 Albumin/Globulin Ratio 1.6 Ur Collection Type Clean Catch Urine Color Yellow Urine Clarity Clear Urine pH 5.5 Ur Specific [place] 1.014 Urine Protein 1+ A Urine Glucose (UA) Negative Urine Ketones Negative Urine Blood Negative Urine Nitrite Negative Urine Bilirubin Negative Urine Urobilinogen (Auto) Negative Ur Leukocyte Esterase Positive Urine RBC < 1 Urine WBC 66 H Ur Squamous Epith Cells < 1 Urine Bacteria Rare Hyaline Casts < 1 ABG Interpretation ABG results: 10/26/24 12:13 VBG pH 7.52 VBG pCO2 20 L VBG pO2 72 H VBG Base Excess -4 L Quality Measures Quality Measures VTE prophylaxis Advance care planning discussed with:: patient Assessment & Plan Assessment Current Active Medications: Generic Name Dose Route Start Last Admin Trade Name Freq PRN Reason Stop Dose Admin Dextrose 25 ml 10/26/24 13:54 Dextrose 50%-Water Inj 50 Ml Syringe IV 11/25/24 13:53 Q15MIN PRN BG 50-70 responsive npo pt Dextrose 50 ml 10/26/24 13:54 Dextrose 50%-Water Inj 50 Ml Syringe IV 11/25/24 13:53 Q15MIN PRN BG <50 OR BG <70 & pt unresponsive Glucagon 1 mg 10/26/24 13:54 Glucagon Inj 1 Mg Vial IM Q15MIN PRN BG <70, and no IV access Heparin Sodium (Porcine) 5,000 unit 10/26/24 21:00 10/28/24 08:39 Heparin Sod Inj 5000 Unit/Ml Vial SC 11/09/24 20:59 5,000 unit Q12HR MYEKL Administration Hydromorphone HCl 0.25 mg 10/26/24 13:48 10/28/24 12:50 Hydromorphone Inj 2 Mg/Ml Vial IVP 10/31/24 13:47 0.25 mg Q2H PRN Administration Pain 1-3 Hydromorphone HCl 1 mg 10/26/24 13:54 10/28/24 08:39 Hydromorphone Inj 2 Mg/Ml Vial IVP 10/31/24 13:53 1 mg Q4H PRN Administration 4-10 Lactated Ringer's 1,000 mls @ 125 mls/hr 10/27/24 15:33 10/28/24 07:53 Lactated Ringers IV 10/28/24 15:32 125 mls/hr .Q8H MYKEL Administration Lactated Ringer's 1,000 mls @ 125 mls/hr 10/28/24 07:57 Lactated Ringers IV 11/27/24 07:56 .Q8H [facility] Insulin Human Lispro 0 unit 10/26/24 17:00 10/28/24 12:13 Insulin Lispro (Admelog) 1 Unit/0.01 Ml Unit SC 11/25/24 16:59 Not Given AC [facility] Protocol Labetalol HCl 10 mg 10/26/24 13:56 10/28/24 11:52 Labetalol Inj 5 Mg/Ml Vial 20 Ml IVP 11/25/24 13:55 10 mg Q6H PRN Administration SBP > 170 Ondansetron HCl 4 mg 10/26/24 13:48 10/28/24 03:35 Ondansetron Inj 2 Mg/Ml Inj 2 Ml IV 11/25/24 13:47 4 mg Q6H PRN Administration NAUSEA OR VOMITING Protocol Pantoprazole Sodium 40 mg 10/27/24 09:00 10/28/24 08:39 Pantoprazole Inj 40 Mg Vial IVP 11/26/24 08:59 40 mg QDAY [facility] Administration Plan Ms. Saunders is a 74-year-old female with past medical history significant for type 2 diabetes, hypertension, hyperlipidemia, depression and status post left nephrectomy presented to the ED complaining of nausea vomiting and epigastric abdominal pain. Pt is admitted for further management of SBO. #Small bowel obstruction #Anion gap metabolic acidosis with compensatory respiratory alkalosis #Hyponatremia -Pt complained of epigarstric pain constipation for 3 weeks, with early satiety, nausea and 1 episode of vomiting -On admission Na 128 -VBG: PH 7.52, CO2 20 and bicarb is 16.8 -Abdomenal Xray: Small bowel obstruction pattern -CT of Abdomen/Pelvis: High-grade mechanical small bowel obstruction pattern -In the ED pt received 3 L fluids and NG tube is placed with 250 cc of brownish output Plan: -total output through NG tube is 750cc, clamping trial successful started the small bowel series -Small bowel series did not resolve the SBO, general surgery is consulted -Pt is scheudled for ex lap this afternoon due to persistent SBO -IV pain meds prn ordered -Zofran for entiemetic ordered #Non-Insulin dependent type 2 diabetes -Pt. home meds include majaouro -insulin sliding scale ordered -A1c ordered for am labs #Hypertension urgency -Pt states she did not take her home valsartan this morning -Bp on admission is 182/84 -will hold PO meds due to SBO requiring NG tube -Labetalol PRN ordered with SBP >170 #Hyperlipidemia #Depression -home meds include ezetimibe 10mg, ropirirole 4mg and duloxetine 90mg -Will home PO meds dur to SBO, will resume when able #Cholelithiasis -Gallbladder ultrasound: Cholelithiasis -Pt denies any RUQ pain or pain after eating -Pt will need to follow up outpatient with general surgery #CKD stage lll #s/p L. radical Nephrectomy -Pt had incidental findings of multiple benign tumors in the L. kidney, Pt underwent L. radical nephrectomy in 2022 -Pts. GFR since 2023 has remained in the 40's, on admission GFR is 48 -Avoid nephrotoxic and renally dose medications -Will continue to monitor daily CMP Health Maintenance Disposition: telemetry for SBO and HTN urgency requiring PRN labetalol pushes DVT Prophylaxis: Heparin 5000 units SC Q8 hrs GI Prophylaxis: Pantoprozol-40 IV Qday Diet: NPO Lines: Peripheral lines Code status: Full Assessment and plan discussed with my senior resident Dr. Sutton & attending physician Dr. Nikia Staley (PGY-1)- Internal medicine resident Attending Provider Attestation/Addendum I reviewed labs, imaging, EKG, home medications and prior available records. Face to face evaluation was performed by me. I have personally examined the patient and discussed assessment and plan with the IM team. I reviewed the resident note and agree with the plan with exceptions as below. SBO Leukocytosis PIPPA Neurogenic bladder Small bowel series still shows small bowel obstruction pattern. Discussed with surgery: Keep the patient n.p.o. and keep NG tube. Will plan for OR on 10/28 Creatinine slightly increased. Monitor kidney function. Avoid nephrotoxins. Renally dose medications Trend WBC: Slightly uptrending Inserted Michelle catheter
--- NOTE | 2024-10-28 15:20 | PD.SUROPNT ---
Date of Procedure 10/28/24 Pre Op Diagnosis Small bowel obstruction Post Op Diagnosis Complete small bowel obstruction from an adhesive band Procedure Exploratory laparotomy, lysis of adhesions Findings An adhesive band wrapped around mid jejunum causing complete small bowel obstruction Procedure Description Patient brought into the operating room in supine position. After administration of general endotracheal anesthesia, patient's abdomen prepped and draped in standard surgical manner. A laparotomy incision was made from mid epigastrium, to the right and around the umbilicus and extended just below the umbilicus. Dissection was deepened into soft tissue and anterior abdominal fascia was divided. Upon entering the abdominal cavity, patient was noted to have some yellowish fluid that was suctioned. Proximal small bowel was very dilated. The small bowel was run from ligament of Treitz up to mid jejunum where patient was noted to have an adhesive band wrapped around mid jejunum causing complete bowel obstruction. Distal to the area of bowel obstruction the small bowel was collapsed. The adhesive band was divided. I was able to milk the contents of proximal small bowel distally to the area of obstruction. The small bowel appeared to be mildly congested however it was viable. The remainder of the small bowel was run up to ileocecal junction, no area of obstruction noted. Abdomen and pelvis washed and irrigated, all the fluids were suctioned and the suction fluid returned clear. Anterior abdominal fascia was closed with running 0 PDS as well as interrupted sutures with #1 Vicryl. The wound was washed and irrigated and the incision was closed with linda. Appropriate sterile dressings applied. Patient tolerated procedure well. She was extubated, breathing spontaneously and without difficulty and was transferred to postanesthesia care in stable condition. Instruments, needles and sponge counts were reported to be correct x 2. Anesthesia GETA Pathology / specimen None Estimated Blood Loss 20 Condition Stable Disposition PACU Surgeon Aide Victoria MD Surgical Staff Operation Date: 10/28/24 13:15 Case Staff Anesthesiologist: Ke Hubbard RNtester semiconductor packages: Sandra Aldana
--- NOTE | 2024-10-28 15:53 | PC.SS ---
Rounding Note: Plan is for the patient to undergo surgery today.
--- NOTE | 2024-10-28 15:55 | PD.ANESPROG ---
Documentation for date of: 10/28/24 ANESTHESIA NOTE: Patient had GETA for emergent ex lap for bowel obstruction this afternoon. Pre-op, I saw her in 266 with her family at bedside. She was alert, c/o abdominal pain and nausea, had NGT iand bey in place. She has had elevated HR (90-110s) and BP (SBP 170-180s) pre-op. She is hard of hearing and had b/l aids in place. She was on NC O2 pre-op. She did well intra-op, was intubated and extubated uneventfully. Prior to induction of anesthesia, I connected her NGT to suction and it immediately put out about 900 cc of dark liquid and another 200 cc during the case. She received almost 1 L NS intra-op. She had about 400 cc of urine in her bye and she put out another 100 cc intra-op. She has been in PACU post op doing well, resting calmly throughout, VSS, head elevated, O2 sat 97% on 2 l/min NC O2. Initially on arrival to PACU, her HR was 90s sinus and SBP 170s and it improved to HR 80s and SBP 120s after I gave her 10 mg IV Labetolol. I went to the waiting room to update her family but did not see anyone. Ke Hubbard MD Anesthesia Progress Note Progress Note Most recent Vital Signs: Last Vital Signs Temp 98 F 10/28/24 15:45 Pulse 88 10/28/24 15:45 Resp 16 10/28/24 15:45 BP 115/51 L 10/28/24 15:45 Pulse Ox 98 10/28/24 15:45 O2 Del Method Nasal Cannula 10/28/24 12:00 O2 Flow Rate 4 10/28/24 15:45
--- NOTE | 2024-10-28 16:29 | SUR.PHASEI ---
pt asleep but responds to voice, breathing unlabored on nc 2l. v/s stable. pt dressing to abd cdi. report called to Scout Beltran. pt will be transferred to room at this time.
[2024-10-28] MEDS: SODIUM CHLORIDE 0.9% 1000 ML 1,000 ML 75 ML IV (17:26)
[2024-10-28] MEDS: bisacodyL 10 MG SUPP PR (17:27)
[2024-10-28] MEDS: METOCLOPRAMIDE INJ 5 MG/ML VIAL 2 ML IVP (17:27)
[2024-10-29] VITALS (9 sets, daily range): BP systolic 97–161; BP diastolic 63–81; PULSE 9–106; RESP 16–21; TEMP 36.2–37.1; O2SAT 93–99; BMI 28.2; BMI 28.0
[2024-10-29] MEDS: METOCLOPRAMIDE INJ 5 MG/ML VIAL 2 ML IVP ×5 (00:33→23:51)
[2024-10-29 06:07] LABS: Basophils % (Auto) 0 % (0-2.5); Eosinophils % (Auto) 0 % (0-10); Hematocrit 33.1 % (36.0-46.0); Hemoglobin 11.3 g/dL (12.0-16.0); Immature Granulocytes % (Auto) 0 % (0-0); Immature Granulocytes Auto 0.04 Thou/mm3 (0.00-0.00); Lymphocytes % (Auto) 6 % (10-50); Mean Corpuscular HGB Conc 34.1 g/dl (31.0-37.0); Mean Corpuscular Hemoglobin 30.2 pg (25.0-35.0); Mean Corpuscular Volume 89 fL (80-100); Monocytes % (Auto) 6 % (0-12); Neutrophils # (Auto) 14.1 Thou/mm3 (1.8-7.7); Neutrophils % (Auto) 88 % (37-80); Nucleated Red Blood Cell % 0 /100 WBC (0); Platelet Count 355 Thou/mm3 (140-440); RDW Standard Deviation 42.7 fL (36.4-46.3); Red Blood Count 3.74 Miln/mm3 (4.00-5.20); White Blood Count 16.1 Thou/mm3 (3.6-11.0)
[2024-10-29] MEDS: RINGERS LACTATED 1000 ML 1,000 ML 125 ML IV (06:20)
[2024-10-29 06:32] LABS: Alanine Aminotransferase 14 U/L (10-49); Albumin, Serum 3.7 gm/dL (3.4-4.8); Albumin/Globulin Ratio 1.5 (1.2-2.2); Alkaline Phosphatase 81 U/L (46-116); Anion Gap 9 (7-16); Aspartate Amino Transferase 18 U/L (0-34); BUN/Creatinine Ratio 19 Ratio (12-20); Bilirubin,Total 0.4 mg/dL (0.3-1.2); Blood Urea Nitrogen 21 mg/dL (9-23); Calcium (Corrected) 11.2 mg/dL (8.5-10.1); Carbon Dioxide 23.9 mMol/L (20.0-31.0); Chloride 107 mMol/L (98-107); Creatinine (Component) 1.1 mg/dL (0.6-1.3); Estimated Creatinine Clearance 45.7 mL/min (>60); Globulin 2.5 gm/dL (2.3-3.5); Glucose 134 mg/dL (74-106); Magnesium 1.8 mg/dL (1.6-2.6); Osmolality,Calculated 284 (275-295); Potassium 4.4 mMol/L (3.4-5.1); Sodium 140 mMol/L (136-145); Total Protein 6.2 gm/dL (5.7-8.2); eGFR 53 See Note
[2024-10-29] MEDS: HYDROmorphone INJ 2 MG/ML VIAL 0.25 MG IVP (06:32)
--- NOTE | 2024-10-29 07:10 | PC.NURSE ---
Pt. refused bed alarm at this time, pt. educated to call for help and educated on fall risks and precautions. Pt. agrees to call for help. pt. close to nurses station.
--- NOTE | 2024-10-29 07:22 | PC.NURSE ---
Dr. Staley aware pt. requesting bey catheter removed, Dr. Staley orders clamping trial for now due to retention. . concerned for need for reinsertion if retention continues. Dr. Park to give ice chips.
--- NOTE | 2024-10-29 08:19 | PD.SURPROG ---
Documentation for date of: 10/29/24 Subjective Subjective Narrative: Patient is seen and examined. She is feeling much better. She denies nausea or vomiting and she had a bowel movement Exam Vital Signs Temp Pulse Resp BP Pulse Ox O2 Del Method O2 Flow Rate 97.3 F 100 18 97/75 99 Nasal Cannula 2 10/29/24 04:00 10/29/24 05:30 10/29/24 04:00 10/29/24 04:00 10/29/24 04:00 10/29/24 04:00 10/29/24 04:00 Constitutional Constitutional: no acute distress Routine Abdominal Exam Comments: Abdomen is soft and minimally distended. She has active bowel sounds. Incision with dressings clean, dry and intact Assessment & Plan Assessment Additional comments: Postop day #1 status post exploratory laparotomy with lysis of adhesions Plan DC NG tube and start patient on clear liquids. DC Michelle catheter. Increase ambulation and use incentive spirometer Procedures Procedures Exploratory laparotomy, lysis of adhesions
[2024-10-29] MEDS: HEPARIN SOD INJ 5000 UNIT/ML VIAL SC ×2 (09:23→21:08)
[2024-10-29] MEDS: PANTOPRAZOLE INJ 40 MG VIAL IVP (09:23)
[2024-10-29] MEDS: Magnesium Sulfate 2 GM Ivpb 2 GM/50 ML BAG IV (09:24)
[2024-10-29] MEDS: RINGERS LACTATED 1000 ML 1,000 ML 60 ML IV ×2 (09:24→21:06)
[2024-10-29] MEDS: POT PHOS 15 mMol in NS 250 ML 15 MMOL/250 ML BAG 62.5 MMOL IV (09:24)
--- NOTE | 2024-10-29 11:39 | ESPR_ITS ---
<Statement entered by David Sutton MD - 10/29/24 18:27> Patient was seen and examined at the bedside. No acute overnight events were reported. Patient reported to have restless legs overnight however patient had adhesion lysis and was postsurgery there for was kept NPO. This morning patient passed large bowel movement and was started on clear liquid diet as tolerated. Additionally, Bey catheter was removed to evaluate for voiding trial. Home medications including ropinirole and duloxetine was resumed. Labs showed improvement in white count and K-Phos was given for hypophosphatemia. PTH was ordered due to persistently elevated corrected calcium. Will likely go up on the dose of ropinirole given concern for restless leg. Will perform iron panel with ferritin tomorrow morning to evaluate for iron deficiency anemia. I saw and examined the patient, and I agree with current management stated by Dr Luís MD,PGY1. Plan of care was discussed with the attending physician and resident physician. Disclaimer: Despite multiple revisions, due to the dictation software being used, the document bellow may not be free of grammatical errors including phonetic/typographic errors. However, this does not deter from our commitment to providing health care in the patient's best interest in mind. Dr. Lesley MD, PGY 2 Documentation for date of: 10/29/24 Subjective Subjective Interval history: No acute overnight events, Pt is seen and examined at bedside this morning. Pt is resting comfortably and is at bedside. Pt is s/p surgery for adhesive band wrapped around mid jejunum causing complete small bowel obstruction. Surgery was successful without complications. Per and nurse, pt had large bowel movement at early hours this morning. Pt requested to remove bey catheter, and will do bladder scam at 6 hour. per surgery recommendation, pt is started on liquid diet for lunch and will continue to monitor for BM and improvement of symptoms. Labs are stable, and WBC is downtrended to 16.1, phosphorous was 2.0 and KPhos 15meq is orderd. Pt has persistent elevation fo Ca (11.2) will order PTH. Exam Vital Signs Temp Pulse Resp BP Pulse Ox O2 Del Method O2 Flow Rate 98.2 F 104 H 16 149/78 H 97 Nasal Cannula 2 10/29/24 08:00 10/29/24 09:12 10/29/24 09:12 10/29/24 08:00 10/29/24 09:12 10/29/24 08:00 10/29/24 09:12 Narrative Exam GENERAL: A&Ox3, pleasant , well kept elderly female, comfortable sleeping NEURO: no focal neurological deficits HEENT: Atraumatic, Normocephalic. mucous membranes moist. Eyes open, symmetrical, & clear HEART: Normal Heart Sounds LUNGS: Clear to auscultation with no wheezing or crackles. ABDOMEN: soft, non-distended, abdomen is soft, surgical site is clean and dry SKIN: No Rash or ecchymoses EXTREMITIES: No edema, tenderness, able to move all 4 extremities, pedal pulses palpated Objective Labs 10/30/24 04:59 10/30/24 04:59 Labs: Laboratory Results - last 24 hr 10/29/24 05:04 WBC 16.1 H RBC 3.74 L Hgb 11.3 L Hct 33.1 L MCV 89 MCH 30.2 MCHC 34.1 RDW Std Deviation 42.7 Plt Count 355 Neut % (Auto) 88 H Lymph % (Auto) 6 L [place] % (Auto) 6 Eos % (Auto) 0 Baso % (Auto) 0 Neut # (Auto) 14.1 H Lymph # (Auto) 1.0 [place] # (Auto) 1.0 H Eos # (Auto) 0.0 Baso # (Auto) 0.0 Immature Gran # (Auto) 0.04 H Absolute Nucleated RBC 0.00 Immature Gran % 0 Nucleated RBC % 0 Sodium 140 Potassium 4.4 Chloride 107 Carbon Dioxide 23.9 Anion Gap 9 BUN 21 Creatinine 1.1 Estim Creat Clear Calc 45.7 L eGFR 53 L BUN/Creatinine Ratio 19 Glucose 134 H Calculated Osmolality 284 Calcium 11.0 H Corrected Calcium 11.2 H Phosphorus 2.0 L Magnesium 1.8 Total Bilirubin 0.4 AST 18 ALT 14 Alkaline Phosphatase 81 Total Protein 6.2 Albumin 3.7 Globulin 2.5 Albumin/Globulin Ratio 1.5 ABG Interpretation ABG results: 10/26/24 12:13 VBG pH 7.52 VBG pCO2 20 L VBG pO2 72 H VBG Base Excess -4 L Quality Measures Quality Measures VTE prophylaxis Advance care planning discussed with:: patient Assessment & Plan Assessment Current Active Medications: Generic Name Dose Route Start Last Admin Trade Name Freq PRN Reason Stop Dose Admin Dextrose 25 ml 10/26/24 13:54 Dextrose 50%-Water Inj 50 Ml Syringe IV 11/25/24 13:53 Q15MIN PRN BG 50-70 responsive npo pt Dextrose 50 ml 10/26/24 13:54 Dextrose 50%-Water Inj 50 Ml Syringe IV 11/25/24 13:53 Q15MIN PRN BG <50 OR BG <70 & pt unresponsive Glucagon 1 mg 10/26/24 13:54 Glucagon Inj 1 Mg Vial IM Q15MIN PRN BG <70, and no IV access Heparin Sodium (Porcine) 5,000 unit 10/26/24 21:00 10/29/24 09:23 Heparin Sod Inj 5000 Unit/Ml Vial SC 11/09/24 20:59 5,000 unit Q12HR MYKEL Administration Hydromorphone HCl 0.25 mg 10/26/24 13:48 10/29/24 06:32 Hydromorphone Inj 2 Mg/Ml Vial IVP 10/31/24 13:47 0.25 mg Q2H PRN Administration Pain 1-3 Hydromorphone HCl 1 mg 10/26/24 13:54 10/28/24 08:39 Hydromorphone Inj 2 Mg/Ml Vial IVP 10/31/24 13:53 1 mg Q4H PRN Administration 4-10 Potassium Phosphate 15 mmol in 250 mls @ 62.5 mls/hr 10/29/24 08:19 10/29/24 09:24 Pot Phos 15 Mmol In Ns 250 Ml IV 10/29/24 12:18 62.5 mls/hr X1 ONE Administration Lactated Ringer's 1,000 mls @ 60 mls/hr 10/29/24 08:21 10/29/24 09:24 Lactated Ringers IV 11/28/24 08:19 60 mls/hr .[id number] MYKEL Administration Insulin Human Lispro 0 unit 10/26/24 17:00 10/29/24 11:25 Insulin Lispro (Admelog) 1 Unit/0.01 Ml Unit SC 11/25/24 16:59 Not Given AC [facility] Protocol Labetalol HCl 10 mg 10/26/24 13:56 10/28/24 11:52 Labetalol Inj 5 Mg/Ml Vial 20 Ml IVP 11/25/24 13:55 10 mg Q6H PRN Administration SBP > 170 Metoclopramide HCl 5 mg 10/28/24 18:00 10/29/24 06:20 Metoclopramide Inj 5 Mg/Ml Vial 2 Ml IVP 11/27/24 17:59 5 mg Q6HR MYKEL Administration Protocol Ondansetron HCl 4 mg 10/26/24 13:48 10/28/24 03:35 Ondansetron Inj 2 Mg/Ml Inj 2 Ml IV 11/25/24 13:47 4 mg Q6H PRN Administration NAUSEA OR VOMITING Protocol Pantoprazole Sodium 40 mg 10/27/24 09:00 10/29/24 09:23 Pantoprazole Inj 40 Mg Vial IVP 11/26/24 08:59 40 mg QDAY MYKEL Administration Ropinirole HCl 4 mg 10/29/24 11:00 Ropinirole Hcl 1 Mg Tablet PO 11/28/24 10:59 DAILY MYKEL Plan Ms. Saunders is a 74-year-old female with past medical history significant for type 2 diabetes, hypertension, hyperlipidemia, depression and status post left nephrectomy presented to the ED complaining of nausea vomiting and epigastric abdominal pain. Pt is admitted for further management of SBO. #Small bowel obstruction s/p ex lap on 10/28 #Anion gap metabolic acidosis with compensatory respiratory alkalosis #Hyponatremia -Pt complained of epigarstric pain constipation for 3 weeks, with early satiety, nausea and 1 episode of vomiting -On admission Na 128 -VBG: PH 7.52, CO2 20 and bicarb is 16.8 -Abdomenal Xray: Small bowel obstruction pattern -CT of Abdomen/Pelvis: High-grade mechanical small bowel obstruction pattern -In the ED pt received 3 L fluids and NG tube is placed with 250 cc of brownish output Plan: -Small bowel series did not resolve the SBO, general surgery is consulted -Pt is s/p ex lap on 10/28 due to persistent SBO secondary to adhesive band wrapped around mid jejunum causing complete small bowel obstruction -IV pain meds prn ordered -Zofran for entiemetic ordered -advanced diet to clear liquid #Hypercalcemia -Pt Ca is 11.2 persistently -ordered PTH #Non-Insulin dependent type 2 diabetes -Pt. home meds include majaouro -insulin sliding scale ordered -A1c ordered for am labs #Hypertension urgency -Pt states she did not take her home valsartan this morning -Bp on admission is 182/84 -will hold PO meds due to SBO requiring NG tube -Labetalol PRN ordered with SBP >170 #Hyperlipidemia #Depression -home meds include ezetimibe 10mg, ropirirole 4mg and duloxetine 90mg -Will home PO meds dur to SBO, will resume when able #Cholelithiasis -Gallbladder ultrasound: Cholelithiasis -Pt denies any RUQ pain or pain after eating -Pt will need to follow up outpatient with general surgery #CKD stage lll #s/p L. radical Nephrectomy -Pt had incidental findings of multiple benign tumors in the L. kidney, Pt underwent L. radical nephrectomy in 2022 -Pts. GFR since 2023 has remained in the 40's, on admission GFR is 48 -Avoid nephrotoxic and renally dose medications -Will continue to monitor daily CMP Health Maintenance Disposition: telemetry for SBO s/p surgery and HTN urgency requiring PRN labetalol pushes DVT Prophylaxis: Heparin 5000 units SC Q8 hrs GI Prophylaxis: Pantoprozol-40 IV Qday Diet: NPO Lines: Peripheral lines Code status: Full Assessment and plan discussed with my senior resident Dr. Sutton & attending physician Dr. Nikia Staley (PGY-1)- Internal medicine resident Attending Provider Attestation/Addendum I reviewed labs, imaging, EKG, home medications and prior available records. Face to face evaluation was performed by me. I have personally examined the patient and discussed assessment and plan with the IM team. I reviewed the resident note and agree with the plan with exceptions as below. SBO Leukocytosis PIPPA Neurogenic bladder Status post OR and lysis of adhesions on 10/28 Patient had a bowel movement. Discussed with surgery: Started the patient on clear liquid diet. Creatinine improved. Monitor kidney function. Avoid nephrotoxins. Renally dose medications Trend WBC: Downtrending Removed Bey catheter. Voiding trial
[2024-10-29 11:45] LABS: Parathyroid Hormone Intact 69.2 pg/ml (18.5-88.0)
[2024-10-29] MEDS: rOPINIRole HCL 1 MG TABLET 4 MG PO (12:19)
--- NOTE | 2024-10-29 16:05 | PC.SS ---
Rounding Note: Patient has had bowel movement. Diet to be advanced.
--- NOTE | 2024-10-29 17:07 | PC.NURSE ---
Pt. ambulated down power with staff assistance and with walker. Pt. ambulation is slow with a steady gait.
--- NOTE | 2024-10-29 18:20 | PC.NURSE ---
Dr. Montgomery aware pt. having severe RLS smptoms and already received requip for today. agrees to try another med for symptoms and orders to change requip to pt. preferred time.
[2024-10-29] MEDS: GABAPENTIN 100 MG CAPSULE PO (18:28)
[2024-10-29] MEDS: DULoxetine HCL 30 MG CAPSULE 60 MG PO (21:06)
[2024-10-29] MEDS: DULoxetine HCL 30 MG CAPSULE PO (21:06)
[2024-10-29] MEDS: GABAPENTIN 100 MG CAPSULE 200 MG PO (23:51)
[2024-10-30] VITALS (8 sets, daily range): BP systolic 126–164; BP diastolic 64–82; PULSE 84–105; RESP 13–25; TEMP 36.4–36.8; O2SAT 90–98; BMI 29.0
[2024-10-30] MEDS: HYDROmorphone INJ 2 MG/ML VIAL 0.25 MG IVP (03:31)
[2024-10-30 05:53] LABS: Basophils % (Auto) 0 % (0-2.5); Eosinophils # (Auto) 0.1 Thou/mm3 (0.0-0.5); Eosinophils % (Auto) 1 % (0-10); Hematocrit 28.2 % (36.0-46.0); Hemoglobin 9.6 g/dL (12.0-16.0); Immature Granulocytes % (Auto) 0 % (0-0); Immature Granulocytes Auto 0.06 Thou/mm3 (0.00-0.00); Lymphocytes # (Auto) 1.3 Thou/mm3 (1.0-4.8); Lymphocytes % (Auto) 9 % (10-50); Mean Corpuscular Hemoglobin 30.5 pg (25.0-35.0); Mean Corpuscular Volume 90 fL (80-100); Monocytes # (Auto) 0.9 Thou/mm3 (0.0-0.8); Monocytes % (Auto) 7 % (0-12); Neutrophils # (Auto) 11.1 Thou/mm3 (1.8-7.7); Neutrophils % (Auto) 82 % (37-80); Nucleated Red Blood Cell % 0 /100 WBC (0); Platelet Count 285 Thou/mm3 (140-440); RDW Standard Deviation 41.8 fL (36.4-46.3); Red Blood Count 3.15 Miln/mm3 (4.00-5.20); White Blood Count 13.5 Thou/mm3 (3.6-11.0)
[2024-10-30] MEDS: METOCLOPRAMIDE INJ 5 MG/ML VIAL 2 ML IVP ×3 (05:58→18:14)
[2024-10-30 06:23] LABS: Vitamin D 25 Hydroxy Total 39.8 ng/mL (7.3-40.2)
[2024-10-30 06:24] LABS: Ferritin 268 ng/mL (7.3-270.7); Iron 31 mcg/dL (50-170); Percent Iron Saturation 16 % (20-55); Total Iron Binding Capacity 185 mcg/dL (250-425); Unsaturated Iron Binding 154 (225-295)
[2024-10-30 06:27] LABS: Albumin, Serum 3.5 gm/dL (3.4-4.8); Anion Gap 8 (7-16); BUN/Creatinine Ratio 18 Ratio (12-20); Blood Urea Nitrogen 16 mg/dL (9-23); Calcium 10.5 mg/dL (8.3-10.6); Calcium (Corrected) 10.9 mg/dL (8.5-10.1); Carbon Dioxide 25.5 mMol/L (20.0-31.0); Chloride 101 mMol/L (98-107); Creatinine (Component) 0.9 mg/dL (0.6-1.3); Estimated Creatinine Clearance 56.8 mL/min (>60); Glucose 100 mg/dL (74-106); Osmolality,Calculated 269 (275-295); Phosphorous 2.1 mg/dL (2.4-5.1); Potassium 4.2 mMol/L (3.4-5.1); Sodium 134 mMol/L (136-145); eGFR > 60 See Note
[2024-10-30] MEDS: NAPH,KPH MBDB 1 PACKET (1.5 GM) PO (08:35)
[2024-10-30] MEDS: HEPARIN SOD INJ 5000 UNIT/ML VIAL SC ×2 (08:36→20:44)
[2024-10-30] MEDS: DULoxetine HCL 30 MG CAPSULE PO (08:36)
[2024-10-30] MEDS: DULoxetine HCL 30 MG CAPSULE 60 MG PO (08:36)
[2024-10-30] MEDS: PANTOPRAZOLE INJ 40 MG VIAL IVP (08:37)
--- NOTE | 2024-10-30 11:14 | PD.SURPROG ---
Documentation for date of: 10/30/24 Subjective Subjective Narrative: Patient is seen and examined. She is feeling better. She is tolerating clear liquids without nausea or vomiting and having bowel movements Exam Vital Signs Temp Pulse Resp BP Pulse Ox O2 Del Method O2 Flow Rate 97.5 F 103 H 25 H 142/71 H 90 L Nasal Cannula 3 10/30/24 08:00 10/30/24 08:00 10/30/24 08:00 10/30/24 08:00 10/30/24 08:00 10/30/24 08:00 10/30/24 08:00 Constitutional Constitutional: no acute distress Routine Abdominal Exam Comments: Abdomen is soft and nondistended. Incision is clean, dry and intact Assessment & Plan Assessment Additional comments: Postop day #2 status post exploratory laparotomy with lysis of adhesions Plan Advance to soft diet. May discharge home tomorrow if tolerating soft diet and continues to have bowel movements Procedures Procedures Exploratory laparotomy, lysis of adhesions
--- NOTE | 2024-10-30 14:30 | ESPR_ITS ---
<Statement entered by David Sutton MD - 10/30/24 15:39> Patient was seen and examined at the bedside. Overnight patient was feeling uncomfortable due to restless legs despite receiving ropinirole therefore dose of gabapentin was given. Patient is tolerating her diet well. Surgeon recommended to discharge the patient tomorrow if she tolerates well. She was given an option for taking iron in IV form however patient did not want to use it although her iron levels were slightly low. Iron 31 and iron saturation around 16%. Labs were unremarkable and only significant for white count 13.5 and hemoglobin 9.6. All labs and orders were reviewed. I saw and examined the patient, and I agree with current management stated by Dr Luís MD,PGY1. Plan of care was discussed with the attending physician and resident physician. Disclaimer: Despite multiple revisions, due to the dictation software being used, the document bellow may not be free of grammatical errors including phonetic/typographic errors. However, this does not deter from our commitment to providing health care in the patient's best interest in mind. Dr. Alka MD, PGY 2 Documentation for date of: 10/30/24 Subjective Subjective Interval history: Overnight team reported pt was very uncomfortable due to her restless leg syndrome despite receiving ropinirole earlier in the day, therefore night time gave additional 200mg of gabapentin. Pt is seen and examined at bedside this morning, pt states she had a rough night from the restless leg syndrome and stated that normally she takes it at 5 PM therefore her propranolol dose is changed to 5 PM daily. Patient's clear liquid diet is advanced to dysphagia 3 we will continue to monitor how patient tolerates the advance diet. Patient's iron panel shows a little low on iron and therefore iron sucrose IVP is ordered patient states that her oral iron makes her feel nauseous. Vitals are stable with blood pressure 126/64 and labs are stable and leukocytosis is downtrending WBC 13.5 Exam Vital Signs Temp Pulse Resp BP Pulse Ox O2 Del Method O2 Flow Rate 97.8 F 104 H 20 138/82 H 92 L Room Air 2 10/30/24 12:00 10/30/24 12:00 10/30/24 12:00 10/30/24 12:00 10/30/24 12:00 10/30/24 12:10/30/24 11:03 Narrative Exam GENERAL: A&Ox3, pleasant , well kept elderly female, sitting at the edge of the bed in a pleasant mood NEURO: no focal neurological deficits HEENT: Atraumatic, Normocephalic. mucous membranes moist. Eyes open, symmetrical, & clear HEART: Normal Heart Sounds LUNGS: Clear to auscultation with no wheezing or crackles. ABDOMEN: soft, non-distended, abdomen is soft, surgical site is clean and dry SKIN: No Rash or ecchymoses EXTREMITIES: No edema, tenderness, able to move all 4 extremities, pedal pulses palpated Objective Labs 10/31/24 04:47 10/31/24 04:47 Labs: Laboratory Results - last 24 hr 10/30/24 04:59 WBC 13.5 H RBC 3.15 L Hgb 9.6 L Hct 28.2 L MCV 90 MCH 30.5 MCHC 34.0 RDW Std Deviation 41.8 Plt Count 285 D Neut % (Auto) 82 H Lymph % (Auto) 9 L [place] % (Auto) 7 Eos % (Auto) 1 Baso % (Auto) 0 Neut # (Auto) 11.1 H Lymph # (Auto) 1.3 [place] # (Auto) 0.9 H Eos # (Auto) 0.1 Baso # (Auto) 0.0 Immature Gran # (Auto) 0.06 H Absolute Nucleated RBC 0.00 Immature Gran % 0 Nucleated RBC % 0 Sodium 134 L Potassium 4.2 Chloride 101 Carbon Dioxide 25.5 Anion Gap 8 BUN 16 Creatinine 0.9 Estim Creat Clear Calc 56.8 L eGFR > 60 BUN/Creatinine Ratio 18 Glucose 100 Calculated Osmolality 269 L Calcium 10.5 Corrected Calcium 10.9 H Phosphorus 2.1 L Iron 31 L TIBC 185 L Iron Saturation 16 L Unsat Iron Binding 154 L Ferritin 268 Albumin 3.5 25-OH Vitamin D Total 39.8 ABG Interpretation ABG results: 10/26/24 12:13 VBG pH 7.52 VBG pCO2 20 L VBG pO2 72 H VBG Base Excess -4 L Quality Measures Quality Measures VTE prophylaxis Advance care planning discussed with:: patient Assessment & Plan Assessment Current Active Medications: Generic Name Dose Route Start Last Admin Trade Name Freq PRN Reason Stop Dose Admin Dextrose 25 ml 10/26/24 13:54 Dextrose 50%-Water Inj 50 Ml Syringe IV 11/25/24 13:53 Q15MIN PRN BG 50-70 responsive npo pt Dextrose 50 ml 10/26/24 13:54 Dextrose 50%-Water Inj 50 Ml Syringe IV 11/25/24 13:53 Q15MIN PRN BG <50 OR BG <70 & pt unresponsive Duloxetine HCl 30 mg 10/29/24 21:00 10/30/24 08:36 Duloxetine Hcl 30 Mg Capsule PO 11/28/24 20:59 30 mg QDAY MYKEL Administration Duloxetine HCl 60 mg 10/29/24 21:00 10/30/24 08:36 Duloxetine Hcl 30 Mg Capsule PO 11/28/24 20:59 60 mg DAILY MYKEL Administration Glucagon 1 mg 10/26/24 13:54 Glucagon Inj 1 Mg Vial IM Q15MIN PRN BG <70, and no IV access Heparin Sodium (Porcine) 5,000 unit 10/26/24 21:00 10/30/24 08:36 Heparin Sod Inj 5000 Unit/Ml Vial SC 11/09/24 20:59 5,000 unit Q12HR MYKEL Administration Hydromorphone HCl 0.25 mg 10/26/24 13:48 10/30/24 03:31 Hydromorphone Inj 2 Mg/Ml Vial IVP 10/31/24 13:47 0.25 mg Q2H PRN Administration Pain 1-3 Hydromorphone HCl 1 mg 10/26/24 13:54 10/28/24 08:39 Hydromorphone Inj 2 Mg/Ml Vial IVP 10/31/24 13:53 1 mg Q4H PRN Administration 4-10 Insulin Human Lispro 0 unit 10/26/24 17:00 10/30/24 11:47 Insulin Lispro (Admelog) 1 Unit/0.01 Ml Unit SC 11/25/24 16:59 Not Given AC MYKEL Protocol Labetalol HCl 10 mg 10/26/24 13:56 10/28/24 11:52 Labetalol Inj 5 Mg/Ml Vial 20 Ml IVP 11/25/24 13:55 10 mg Q6H PRN Administration SBP > 170 Metoclopramide HCl 5 mg 10/28/24 18:00 10/30/24 13:07 Metoclopramide Inj 5 Mg/Ml Vial 2 Ml IVP 11/27/24 17:59 5 mg Q6HR MYKEL Administration Protocol Ondansetron HCl 4 mg 10/26/24 13:48 10/28/24 03:35 Ondansetron Inj 2 Mg/Ml Inj 2 Ml IV 11/25/24 13:47 4 mg Q6H PRN Administration NAUSEA OR VOMITING Protocol Pantoprazole Sodium 40 mg 10/27/24 09:00 10/30/24 08:37 Pantoprazole Inj 40 Mg Vial IVP 11/26/24 08:59 40 mg QDAY MYKEL Administration Ropinirole HCl 4 mg 10/29/24 11:00 10/29/24 12:19 Ropinirole Hcl 1 Mg Tablet PO 11/28/24 10:59 4 mg DAILY MYKEL Administration Plan Ms. Saunders is a 74-year-old female with past medical history significant for type 2 diabetes, hypertension, hyperlipidemia, depression and status post left nephrectomy presented to the ED complaining of nausea vomiting and epigastric abdominal pain. Pt is admitted for further management of SBO. #Small bowel obstruction s/p ex lap on 10/28 #lysis of adhesions #Anion gap metabolic acidosis with compensatory respiratory alkalosis- resolved #Hyponatremia-improving -Pt complained of epigarstric pain constipation for 3 weeks, with early satiety, nausea and 1 episode of vomiting -On admission Na 128 -VBG: PH 7.52, CO2 20 and bicarb is 16.8 -Abdomenal Xray: Small bowel obstruction pattern -CT of Abdomen/Pelvis: High-grade mechanical small bowel obstruction pattern -In the ED pt received 3 L fluids and NG tube is placed with 250 cc of brownish output Plan: -Small bowel series did not resolve the SBO, general surgery is consulted -Pt is s/p ex lap on 10/28 due to persistent SBO secondary to adhesive band wrapped around mid jejunum causing complete small bowel obstruction -IV pain meds prn ordered -Zofran for entiemetic ordered -advanced diet to dysphagia 3 #Hypercalcemia - improving -On admission Pt Ca is 11.2, improving today is 10.9 -PTH 69.2 and vit D 39.2 -Hypercalcemia likely secondary to immobilization. -Pt is advised to follow up outpatient to monitor for Ca #Non-Insulin dependent type 2 diabetes -Pt. home meds include majaouro -insulin sliding scale ordered -A1c ordered for am labs #Hypertension urgency -Pt states she did not take her home valsartan this morning -Bp on admission is 182/84 -will hold PO meds due to SBO requiring NG tube -Labetalol PRN ordered with SBP >170 #Hyperlipidemia #Depression -home meds include ezetimibe 10mg, ropirirole 4mg and duloxetine 90mg -Will home PO meds dur to SBO, will resume when able #Cholelithiasis -Gallbladder ultrasound: Cholelithiasis -Pt denies any RUQ pain or pain after eating -Pt will need to follow up outpatient with general surgery #CKD stage lll #s/p L. radical Nephrectomy -Pt had incidental findings of multiple benign tumors in the L. kidney, Pt underwent L. radical nephrectomy in 2022 -Pts. GFR since 2023 has remained in the 40's, on admission GFR is 48 -Avoid nephrotoxic and renally dose medications -Will continue to monitor daily CMP Health Maintenance Disposition: telemetry for SBO s/p surgery and HTN urgency requiring PRN labetalol pushes DVT Prophylaxis: Heparin 5000 units SC Q8 hrs GI Prophylaxis: Pantoprozol-40 IV Qday Diet: NPO Lines: Peripheral lines Code status: Full Assessment and plan discussed with my senior resident Dr. Sutton & attending physician Dr. Nikia Staley (PGY-1)- Internal medicine resident Attending Provider Attestation/Addendum I reviewed labs, imaging, EKG, home medications and prior available records. Face to face evaluation was performed by me. I have personally examined the patient and discussed assessment and plan with the IM team. I reviewed the resident note and agree with the plan with exceptions as below. SBO Leukocytosis PIPPA Neurogenic bladder Status post OR and lysis of adhesions on 10/28 Patient had a bowel movement. Discussed with surgery: Started the patient on clear liquid diet. Advanced to diet. Discussed with surgery: May discharge on 10/31 if continues to have bowel movements and tolerates her diet Creatinine improved. Monitor kidney function. Avoid nephrotoxins. Renally dose medications Trend WBC: Downtrending Removed Michelle catheter.
--- NOTE | 2024-10-30 15:46 | PC.SS ---
SS follow up note; Advancing Diet, possible late discharge today.
[2024-10-30] MEDS: IRON SUCROSE CPLX INJ 20 MG/ML VIAL 5 ML 200 MG IVP (15:51)
[2024-10-30] MEDS: rOPINIRole HCL 1 MG TABLET 4 MG PO (16:09)
--- NOTE | 2024-10-30 21:50 | PC.NURSE ---
2150 Report given to Raymundo Pt transferring to Med Surg.
[2024-10-31] VITALS: BP 129/75; PULSE 80; PULSE 94; RESP 20; TEMP 36.3; O2SAT 96
[2024-10-31 04:00] VITALS: BP 162/81; PULSE 90; PULSE 94; RESP 18; TEMP 37.1; O2SAT 96
[2024-10-31] MEDS: METOCLOPRAMIDE INJ 5 MG/ML VIAL 2 ML IVP (05:52)
[2024-10-31 06:00] VITALS: BMI 29.0
[2024-10-31 06:00] LABS: Basophils % (Auto) 0 % (0-2.5); Eosinophils # (Auto) 0.1 Thou/mm3 (0.0-0.5); Eosinophils % (Auto) 1 % (0-10); Immature Granulocytes % (Auto) 1 % (0-0); Immature Granulocytes Auto 0.07 Thou/mm3 (0.00-0.00); Lymphocytes # (Auto) 0.8 Thou/mm3 (1.0-4.8); Lymphocytes % (Auto) 7 % (10-50); Mean Corpuscular HGB Conc 34.5 g/dl (31.0-37.0); Mean Corpuscular Hemoglobin 30.4 pg (25.0-35.0); Mean Corpuscular Volume 88 fL (80-100); Monocytes # (Auto) 0.9 Thou/mm3 (0.0-0.8); Monocytes % (Auto) 8 % (0-12); Neutrophils % (Auto) 84 % (37-80); Nucleated Red Blood Cell % 0 /100 WBC (0); Platelet Count 286 Thou/mm3 (140-440); RDW Standard Deviation 39.8 fL (36.4-46.3); Red Blood Count 3.29 Miln/mm3 (4.00-5.20)
[2024-10-31 06:35] LABS: Alanine Aminotransferase 39 U/L (10-49); Albumin, Serum 3.6 gm/dL (3.4-4.8); Albumin/Globulin Ratio 1.5 (1.2-2.2); Alkaline Phosphatase 104 U/L (46-116); Anion Gap 11 (7-16); Aspartate Amino Transferase 38 U/L (0-34); BUN/Creatinine Ratio 13 Ratio (12-20); Bilirubin,Total 0.7 mg/dL (0.3-1.2); Blood Urea Nitrogen 12 mg/dL (9-23); Calcium 10.4 mg/dL (8.3-10.6); Calcium (Corrected) 10.7 mg/dL (8.5-10.1); Carbon Dioxide 24.4 mMol/L (20.0-31.0); Chloride 97 mMol/L (98-107); Creatinine (Component) 0.9 mg/dL (0.6-1.3); Estimated Creatinine Clearance 56.8 mL/min (>60); Globulin 2.4 gm/dL (2.3-3.5); Glucose 96 mg/dL (74-106); Magnesium 1.4 mg/dL (1.6-2.6); Osmolality,Calculated 264 (275-295); Phosphorous 2.4 mg/dL (2.4-5.1); Potassium 3.8 mMol/L (3.4-5.1); Sodium 132 mMol/L (136-145); eGFR > 60 See Note
[2024-10-31 08:00] VITALS: BP 136/80; PULSE 75; RESP 18; TEMP 36.3; O2SAT 95
[2024-10-31 08:03] VITALS: PULSE 75; RESP 18; O2SAT 95
[2024-10-31] MEDS: DULoxetine HCL 30 MG CAPSULE PO (08:58)
[2024-10-31] MEDS: DULoxetine HCL 30 MG CAPSULE 60 MG PO (08:58)
[2024-10-31] MEDS: PANTOPRAZOLE INJ 40 MG VIAL IVP (08:58)
[2024-10-31] MEDS: POTASSIUM CHLORIDE 20 mEq TABCR PO (08:58)
[2024-10-31] MEDS: HEPARIN SOD INJ 5000 UNIT/ML VIAL SC (08:59)
[2024-10-31] MEDS: Magnesium Sulfate 4 GM Ivpb 4 GM/50 ML BAG IV (11:11)
--- NOTE | 2024-10-31 11:13 | PC.NURSE ---
Patient is for discharge once Magnesium Sulfate IV is done. Mag Sulfate started at 11:10 AM to run for 4 hrs.
[2024-10-31] MEDS: DEXTROSE 50%-WATER INJ 50 ML SYRINGE IV (11:40)
[2024-10-31 12:00] VITALS: BP 153/85; PULSE 75; PULSE 76; RESP 18; TEMP 36.1; O2SAT 94
--- NOTE | 2024-10-31 12:04 | ESPR_ITS ---
Documentation for date of: 10/31/24 Subjective Subjective Narrative: Patient is seen and examined. She is feeling better. She is tolerating diet without nausea or vomiting and having bowel movements Exam Vital Signs Temp Pulse Resp BP Pulse Ox O2 Del Method O2 Flow Rate 97.3 F 75 18 136/80 H 95 Room Air 2 10/31/24 08:00 10/31/24 08:03 10/31/24 08:03 10/31/24 08:00 10/31/24 08:03 10/31/24 08:00 10/30/24 20:00 Routine Abdominal Exam Abdominal: Present soft, normoactive bowel sounds and tenderness (Mild mary- incisional tenderness. Incision is clean, dry and intact); Absent distended Assessment & Plan Assessment Additional comments: Postop day #3 status post exploratory laparotomy with lysis of adhesions Plan May discharge home. Procedures Procedures Exploratory laparotomy, lysis of adhesions
--- NOTE | 2024-10-31 15:22 | PD.RESDS ---
Planned Discharge Date 10/31/24 DS: Providers Provider Date of admission: 10/26/24 13:48 Primary care physician: Anika Antoine PA-C Admitting Provider: Dami Moore DO Attending Provider on Admission: Mohit Montejo MD Consults: 10/28/24 06:54 Consult to General Surgery Routine Comment: SBO Consulting Provider: Aide Victoria 10/29/24 10:54 Referral Wound Care Routine Comment: spot to sacrum/buttocks Attending Provider on DC: Koffi Staley MD Discharging Provider: Koffi Staley MD DS: Diagnosis Problem List Completed Was Problem List Reviewed/Reconciled?: Yes Hospital Course Hospital Course Hospital course: Ms. Saunders is a 74-year-old female with past medical history significant for type 2 diabetes, hypertension, hyperlipidemia, depression and status post left nephrectomy presented to [facility] ED complaining of nausea vomiting and epigastric abdominal pain. Pt is admitted for further management of small bowel obstruction. Patient was initially started on NG tube suctioning and small bowel series was ordered however patient's SBO did not resolve therefore surgery was consulted. Patient underwent expiratory laparotomy on 10/28 and underwent lysis of adhesive band wrapped around mid jejunum causing complete small bowel obstruction. Post surgery patient continued to improve and was tolerating advanced oral diet and had regular bowel movement movements without nausea or vomiting. Patient is hemodynamically and clinically stable to be discharged home to self-care. Patient is advised to follow-up with general surgeon Dr. Victoria outpatient and advised if her symptoms recur or worsen to promptly return to the ED. Hospitalization Diagnosis #Small bowel obstruction s/p ex lap on 10/28 #lysis of adhesions #Anion gap metabolic acidosis with compensatory respiratory alkalosis- resolved #Hyponatremia- resolved #Hypercalcemia - resolved #Non-Insulin dependent type 2 diabetes #Hypertension urgency #Hyperlipidemia #Depression #Cholelithiasis #CKD stage lll #s/p L. radical Nephrectomy Discharge Recommendations -Follow up with your primary care within 2 weeks -Follow up with general surgery Dr. Victoria within 2 weeks -Take your medications as prescribed -If your symptoms return or worsen return to the ED promptly Assessment and plan discussed with my attending physician Dr. Nikia Staley (PGY-1)- Internal medicine resident Time Spent with Patient Time attestation: Total time spent providing and/or coordinating discharge services: Time spent: Greater than 30 minutes Exam Vital Signs Temp Pulse Resp BP Pulse Ox O2 Del Method O2 Flow Rate 96.9 F 76 18 153/85 H 94 L Room Air 2 10/31/24 12:00 10/31/24 12:00 10/31/24 12:00 10/31/24 12:00 10/31/24 12:00 10/31/24 12:00 10/30/24 20:00 Narrative Exam GENERAL: A&Ox3, pleasant , well kept elderly female, sitting at the edge of the bed in a pleasant mood NEURO: no focal neurological deficits HEENT: Atraumatic, Normocephalic. mucous membranes moist. Eyes open, symmetrical, & clear HEART: Normal Heart Sounds LUNGS: Clear to auscultation with no wheezing or crackles. ABDOMEN: soft, non-distended, abdomen is soft, surgical site is clean and dry SKIN: No Rash or ecchymoses EXTREMITIES: No edema, tenderness, able to move all 4 extremities, pedal pulses palpated Discharge Plan Plan Patient Disposition: HOME (Self Care) Disposition Comment: Hospitalist to admit Care Plan Goals: -Follow up with your primary care within 2 weeks -Follow up with general surgery Dr. Victoria within 2 weeks -Take your medications as prescribed -If your symptoms return or worsen return to the ED promptly Prescriptions/Referrals Prescriptions/Med Rec: New polyethylene glycol 3350 [Miralax] 17 gram/dose powder 17 g PO QDAY PRN (Reason: constipation) Qty: 119 0RF docusate sodium [Colace] 100 mg capsule 100 mg PO BID Qty: 40 0RF hydrocodone-acetaminophen 5-325 mg tablet 1 tab PO Q6H MDD 4 PRN (Reason: pain (scale score 7-10)) Qty: 15 0RF Gvoke HypoPen 1-Pack 1 mg/0.2 mL auto-injector 1 mg subcut QDAY PRN (Reason: hypoglycemia) Qty: 0.2 0RF Continued duloxetine 30 mg capsule,delayed release(DR/EC) 30 mg PO QDAY omeprazole [Prilosec] 20 MG capsule,delayed release(DR/EC) 20 mg PO QDAY Qty: 0 Patient Comments: TO SUPPRESS GASTRIC ACID SECRETIONS VALSARTAN/HYDROCHLOROTHIAZIDE (VALSARTAN-HCTZ 320-25 MG TAB) 1 EACH tablet 1 tab PO QAMAC Qty: 0 cholecalciferol (vitamin D3) [D3-2000] 2,000 UNIT capsule 2,000 unit PO DAILY Qty: 0 Cyanocobalamin (Vitamin B-12) (B-12) 1,500 MCG TAB.RAPDIS Qty: 0 ezetimibe 10 mg tablet 10 mg PO DAILY duloxetine 60 mg capsule,delayed release(DR/EC) 60 mg PO DAILY Patient Comments: TAKE 1 CAPSULE BY MOUTH EVERY DAY FOR 30 DAYS Mounjaro 15 mg/0.5 mL pen injector 12.5 mg SUBCUT QWEEK Patient Comments: INJECT 15 MG SUBCUTANEOUSLY WEEKLY ropinirole 2 mg tablet 4 mg PO DAILY Patient Comments: TAKE 1 TABLET BY MOUTH EVERY DAY FOR 90 DAYS Referrals: Anika Antoine PA-C [Primary Care Provider] - Patient/Caregiver Discharge Instructions Discharge Activity: activity as tolerated Education Materials: Small Bowel Obstruction, Preventing Surgical Site Infections Print Language: Hebrew Activity Restrictions/Additional Instructions: May shower in 24 hours. Wear abdominal binder at all times. Avoid lifting, straining, pulling or pushing for 6 weeks. May take over the counter laxatives if no bowel movement in 2 days. Follow up with Dr. Victoria in 2 weeks, call [phone] for an appointment. Stand Alone Forms: [employer] Info., Patient Portal Info Letter Discharge Order Discharge Orders: Discharge (Routine); Ordered 10/31/24 Ordered By: David Sutton Quality Discharge Quality Measures VTE prophylaxis Attestestation MD Attestation I reviewed labs, imaging, EKG, home medications and prior available records. Face to face evaluation was performed by me. I have personally examined the patient and discussed assessment and plan with the IM team. I reviewed the resident note and agree with the plan with exceptions as below. SBO Leukocytosis PIPPA Neurogenic bladder Status post OR and lysis of adhesions on 10/28 Patient had a bowel movement. Discussed with surgery: Started the patient on clear liquid diet. Advanced to diet. Discussed with surgery: Okay to discharge Creatinine improved. Monitor kidney function as outpatient Trend WBC: Downtrending Removed Michelle catheter Outpatient follow-up with Dr. Victoria in 2 weeks Time spent is 40 minutes. More than 50% of the time was spent on patient education and coordination of care.
== END 2024-10-31 15:22 | disposition home or self-care (01) | DRG 336 ==
LOC: SERX 12:29 → SERHOLD 14:04 → S2NX 20:17 → S3NX 10-30 20:15
PROVIDERS: Nurse Practitioner Primary Care; Student in an Organized Health Care Education/Training Program; Surgery; Admitting Provider Student in an Organized Health Care Education/Training Program; Emergency Provider Emergency Medicine; PCP Physician Assistant; Visit Provider Student in an Organized Health Care Education/Training Program
PROC: 0DNA0ZZ Release Jejunum, Open Approach (ICD-10-PCS; CPT 49000; principal; 2024-10-28 13:00)
DX: K56.52 Intestinal adhesions [bands] with complete obstruction (principal); E87.1 Hypo-osmolality and hyponatremia; E87.4 Mixed disorder of acid-base balance; N17.9 Acute kidney failure, unspecified; N39.0 Urinary tract infection, site not specified; Z16.24 Resistance to multiple antibiotics; K80.20 Calculus of gallbladder without cholecystitis without obstruction; F32.A Depression, unspecified; I12.9 Hypertensive chronic kidney disease with stage 1 through stage 4 chronic kidney disease, or unspecified chronic kidney disease; E11.22 Type 2 diabetes mellitus with diabetic chronic kidney disease; E83.52 Hypercalcemia; I16.0 Hypertensive urgency; N18.30 Chronic kidney disease, stage 3 unspecified; K21.9 Gastro-esophageal reflux disease without esophagitis; E78.00 Pure hypercholesterolemia, unspecified; E83.39 Other disorders of phosphorus metabolism; N31.9 Neuromuscular dysfunction of bladder, unspecified; G25.81 Restless legs syndrome; Z90.5 Acquired absence of kidney; Z79.84 Long term (current) use of oral hypoglycemic drugs; B96.20 Unspecified Escherichia coli [E. coli] as the cause of diseases classified elsewhere
CPT/HCPCS: 36415; 74018; 74176; 74250; 76705; 80053; 80061; 80069; 81001; 82306; 82728; 82803; 83036; 83540; 83550; 83605; 83690; 83735; 83970; 84100; 84132; 84443; 84484; 84702; 85025; 85610; 85730; 87040; 93005; 93225; 96361; 96365; 96366; 96372; 96375; 99285; A4217; A4649; J0131; J0360; J0694; J1100; J1643; J1756; J1815; J2270; J2371; J2405; J2470; J2704; J2765; J3010; J3475; J3490; J7030; J7120; J7999; Q9963; A9270; J1805; J1920

== ENCOUNTER 2024-11-10 21:33 | Inpatient (IN) | payer MEDICARE, BC, SELFPAY ==
[2024-11-10 21:36] VITALS: BMI 27.4
--- NOTE | 2024-11-10 23:39 | PD.EDABDPN ---
ED Abdominal Pain RME/HPI General Chief Complaint: Abdominal Pain Stated complaint: ABD PAIN, ABD SURGERY 10/28/24 Time seen by provider: 11/10/24 23:23 Arrival date/time: 11/10/24 21:33 RME / HPI RME / HPI narrative: This section includes all my notes and documentations, including HPI, PE, and ED course. Junaid Xiao MD HPI: 74yo female with a history of DM, HTN, HLD, left nephrectomy, s/p SBO exploratory laparotomy on 10/28/24 presents to the ED with several days of worsening and severe abdominal pain, possibly worse in the upper abdomen. With severe nausea. No bowel movement and no bowel sounds for the past few days. No obvious fever or chills. No other complaints. ROS: All negative except as documented in HPI. Physical Exam: General: Alert and oriented. In severe pain. High BP noted. Eyes: Conjunctivae and lids clear. PERRL. EOMI. ENT: No nasal congestion. Neck: Supple. Heart: RRR. Lungs: No respiratory distress. Good air movement. No rhonchi, wheezing, rales. Abdomen: Severe tenderness, difficult to localize. Decreased bowel sounds. Equivocal distention. Equivocal guarding and rebound. Skin: Warm and dry. Neuro: Alert and oriented X 3. Cranial nerves II to XII grossly normal. No peripheral motor deficits. I reviewed all diagnostic test results. Blood tests remarkable for WBC 23, ESR 53, K 2.9, CRP 2.9. Head CT and abdominal CT pending. Treatment here included IV fluid, Zofran, Dilaudid, KCl, Zosyn, metoprolol, and clonidine. At 6 AM on 11/11/2024, the care of the patient was transferred to Dr. ARELLANO. Junaid Xiao MD Related Data Home Medications ?Medication ?Instructions ?Recorded ?Confirmed VALSARTAN/HYDROCHLOROTHIAZIDE 1 tab PO QAMAC ##0 11/10/14 10/26/24 (VALSARTAN-HCTZ 320-25 MG TAB) omeprazole 20 mg capsule,delayed 20 mg PO QDAY ##0 11/10/14 10/26/24 release (Prilosec) Cyanocobalamin (Vitamin B-12) ##0 11/11/14 05/05/24 (B-12) cholecalciferol (vitamin D3) 50 2,000 unit PO DAILY #0 caps 11/11/14 10/26/24 mcg (2,000 unit) capsule (D3-2000) duloxetine 30 mg capsule,delayed 30 mg PO QDAY 03/12/23 10/26/24 release duloxetine 60 mg capsule,delayed 60 mg PO DAILY 10/26/24 10/26/24 release ezetimibe 10 mg tablet 10 mg PO DAILY 10/26/24 10/26/24 ropinirole 2 mg tablet 4 mg PO DAILY 10/26/24 10/26/24 tirzepatide 15 mg/0.5 mL 12.5 mg subcut QWEEK 10/26/24 10/26/24 subcutaneous pen injector (Darrell) Previous Rx's ?Medication ?Instructions ?Recorded docusate sodium 100 mg capsule 100 mg PO BID #40 caps 10/31/24 (Colace) glucagon 1 mg/0.2 mL subcutaneous 1 mg (0.2 mL) subcut QDAY PRN 10/31/24 auto-injector (Gvoke HypoPen hypoglycemia #0.2 mL 1-Pack) hydrocodone 5 mg-acetaminophen 325 1 tab PO Q6H PRN pain (scale score 10/31/24 mg tablet 7-10) #15 tabs polyethylene glycol 3350 17 17 g PO QDAY PRN constipation #119 10/31/24 gram/dose oral powder (Miralax) grams Allergies Allergy/AdvReac Type Severity Reaction Status Date / Time No Known Allergies Allergy Verified 11/10/24 21:35 Review of Systems Review of Systems Systems Reviewed: All systems reviewed, normal except as documented Past Medical History Past Medical History NEUROLOGIC: Negative Seizures CARDIAC: Positive Heart Murmur, Hypercholesterolemia and Hypertension; Negative Congestive Heart Failure RESPIRATORY: Positive Bronchitis and Pneumonia; Negative Chronic Obstructive Pulmonary Disease (COPD) REPRODUCTIVE: Positive Previous Pregnancies ENDOCRINE: Positive Diabetes Mellitus Type 2; Negative Diabetes Mellitus Type 1 PSYCHO/SOCIAL: Positive Depression OTHER HISTORY: Negative Anesthesia Reactions Social History SMOKING STATUS: Never smoker SUBSTANCE USE: does not use ED Exam Narrative Physical exam: As noted in HPI. Course Quality Measures none Orders Category Date Time Status CT Screening NOW Care 11/11/24 00:25 Active Saline [Insert IV] NOW Care 11/11/24 00:24 Active Straight [In and Out Catheter] X1 Care 11/11/24 00:[address] abdomen pelvis w con Stat Exams 11/11/24 00:[address] head/brain wo con Stat Exams 11/11/24 03:43 Ordered Blood Culture (Lab) Stat Lab 11/11/24 00:53 Received CBC Stat Lab 11/11/24 00:53 Completed CMP [Comprehensive Metabolic Panel] Stat Lab 11/11/24 00:53 Completed CRP [C-Reactive Protein] Stat Lab 11/11/24 00:53 Completed ESR [Sed Rate (ESR)] Stat Lab 11/11/24 00:53 Completed Lactate (Lactic Acid) Stat Lab 11/11/24 00:53 Completed Magnesium Stat Lab 11/11/24 00:53 Completed Procalcitonin Stat Lab 11/11/24 00:53 Completed UA, C/S IF [Urinalysis, C/S if Indicated] Stat Lab 11/11/24 00:26 Ordered HYDROmorphone INJ [Dilaudid Inj] Med 11/11/24 00:24 Discontinued 1 mg IVP X1 ONE KCL 10% Liq UDC 15 ML Med 11/11/24 02:55 Discontinued 40 meq PO X1 ONE KCL 10% Liq UDC 15 ML Med 11/11/24 03:42 Discontinued 40 meq PO X1 ONE Metoprolol Tartrate [Lopressor] Med 11/11/24 03:42 Discontinued 50 mg PO X1 ONE Ondansetron Inj [Zofran Inj] Med 11/11/24 00:24 Discontinued 4 mg IV X1 ONE Piper/Tazo 3.375 gm Premix [Zosyn] Med 11/11/24 02:56 Discontinued 3.375 gm in 50 ml IV X1 Sodium Chloride 0.9% 1000 ml [Ns] 1,000 ml Med 11/11/24 00:24 Discontinued IV 999 mls/hr cloNIDine HCL [Catapres] Med 11/11/24 03:42 Discontinued 0.3 mg PO X1 ONE Vital Signs Vital signs: Vital Signs Temperature 97.8 F 11/10/24 23:44 Pulse Rate 86 11/10/24 23:44 Respiratory Rate 19 11/10/24 23:44 Blood Pressure 192/77 H 11/10/24 23:44 Pulse Oximetry (%) 97 11/10/24 23:44 Oxygen Delivery Method Room Air 11/10/24 23:44 Abdominal Pain MDM MDM Narrative MDM Narrative:: Scribe Attestation: 11/10/24 - Alexia Vargas am scribing for and in the presence of Dr. Xiao. Patient data External records reviewed:: [facility] previous records (Per chart review, patient was admitted here on 10/26/24 for cholelithiasis, SBO, Intractable abdominal pain, Hypercalcemia, Low serum bicarbonate.) Clinical information provided by:: patient Social determinants that could affect healthcare access:: none Patient has the following chronic illnesses:: DM, HTN, s/p left nephrectomy, exploratory laparotomy for SBO recently How is presenting disease/condition affected by chronic disease/condition?: exacerbated by Evaluation data The following diagnostics were reviewed and interpreted by me:: lab results and radiology exam(s) Lab and/or radiology exams considered but not ordered:: none Interpretation Summary: Complete diagnostics pending Medications / Prescriptions Medications or Prescriptions considered but not ordered:: none Medication administrations:: Medication Administration History Discontinued Medications Clonidine (Clonidine Hcl 0.1 Mg Tablet) 0.3 mg PO X1 ONE Stop: 11/11/24 03:43 Last Admin: 11/11/24 04:04 Dose: 0.3 mg Documented By: JORDON Hydromorphone HCl (Hydromorphone Inj 2 Mg/Ml Vial) 1 mg IVP X1 ONE Stop: 11/11/24 00:25 Last Admin: 11/11/24 02:11 Dose: 1 mg Documented By: DIPIKA Sodium Chloride (Ns) 1,000 mls @ 999 mls/hr IV .Q1H1M ONE Stop: 11/11/24 01:24 Last Admin: 11/11/24 02:10 Dose: 999 mls/hr Documented By: DIPIKA Piperacillin/Tazobactam/Dextrose (Zosyn) 3.375 gm in 50 mls @ 100 mls/hr IV X1 ONE Stop: 11/11/24 03:25 Last Admin: 11/11/24 03:23 Dose: 100 mls/hr Documented By: DIPIKA Metoprolol Tartrate (Metoprolol Tartrate 25 Mg Tablet) 50 mg PO X1 ONE Stop: 11/11/24 03:43 Last Admin: 11/11/24 04:05 Dose: 50 mg Documented By: JORDON Ondansetron HCl (Ondansetron Inj 2 Mg/Ml Inj 2 Ml) 4 mg IV X1 ONE; Protocol Stop: 11/11/24 00:25 Last Admin: 11/11/24 02:11 Dose: 4 mg Documented By: PINOR Potassium Chloride (Potassium Chloride 10% 20 Meq/15 Ml Udc) 40 meq PO X1 ONE Stop: 11/11/24 02:56 Last Admin: 11/11/24 04:04 Dose: 40 meq Documented By: SF Potassium Chloride (Potassium Chloride 10% 20 Meq/15 Ml Udc) 40 meq PO X1 ONE Stop: 11/11/24 03:43 IV fluid, Zofran, Dilaudid, Zosyn, KCl, metoprolol, and clonidine. Consultations Consultation(s) initiated? (list below): No Diagnosis Differential diagnosis abdominal pain: acute appendicitis, calculus of kidney, constipation, diverticulitis, endometriosis, gastroenteritis, pancreatitis, small bowel obstruction and other (Postsurgical infection, postsurgical abscess) Most likely diagnosis given after review of the tests above:: Complete diagnostics pending. Admission Indicated Admission indicated?: not indicated Explain why admission is indicated or not indicated:: Complete diagnostics pending. Admission Request Was there a request for admission?: No Disposition Plan Disposition Plan: other (specify) (Care of the patient was transferred to Dr. ARELLANO.) Discharge Plan Prescriptions/Referrals Prescriptions/Med Rec: No Action duloxetine 30 mg capsule,delayed release(DR/EC) 30 mg PO QDAY omeprazole [Prilosec] 20 MG capsule,delayed release(DR/EC) 20 mg PO QDAY Qty: 0 Patient Comments: TO SUPPRESS GASTRIC ACID SECRETIONS VALSARTAN/HYDROCHLOROTHIAZIDE (VALSARTAN-HCTZ 320-25 MG TAB) 1 EACH tablet 1 tab PO QAMAC Qty: 0 cholecalciferol (vitamin D3) [D3-2000] 2,000 UNIT capsule 2,000 unit PO DAILY Qty: 0 Cyanocobalamin (Vitamin B-12) (B-12) 1,500 MCG TAB.RAPDIS Qty: 0 ezetimibe 10 mg tablet 10 mg PO DAILY duloxetine 60 mg capsule,delayed release(DR/EC) 60 mg PO DAILY Patient Comments: TAKE 1 CAPSULE BY MOUTH EVERY DAY FOR 30 DAYS Mounjaro 15 mg/0.5 mL pen injector 12.5 mg SUBCUT QWEEK Patient Comments: INJECT 15 MG SUBCUTANEOUSLY WEEKLY ropinirole 2 mg tablet 4 mg PO DAILY Patient Comments: TAKE 1 TABLET BY MOUTH EVERY DAY FOR 90 DAYS polyethylene glycol 3350 [Miralax] 17 gram/dose powder 17 g PO QDAY PRN (Reason: constipation) Qty: 119 0RF docusate sodium [Colace] 100 mg capsule 100 mg PO BID Qty: 40 0RF hydrocodone-acetaminophen 5-325 mg tablet 1 tab PO Q6H MDD 4 PRN (Reason: pain (scale score 7-10)) Qty: 15 0RF Gvoke HypoPen 1-Pack 1 mg/0.2 mL auto-injector 1 mg subcut QDAY PRN (Reason: hypoglycemia) Qty: 0.2 0RF Referrals: Anika Antoine PA-C [Primary Care Provider] - In 1 week Problem List Clinical Impression: Abdominal pain Patient/Caregiver Discharge Instructions Print Language: Maldivian
[2024-11-10 23:44] VITALS: BP 192/77; PULSE 86; RESP 19; TEMP 36.6; O2SAT 97
[2024-11-11] VITALS (19 sets, daily range): BP systolic 117–210; BP diastolic 65–117; PULSE 75–89; RESP 14–26; TEMP 36.1–37.1; O2SAT 93–98; BMI 27.5
--- NOTE | 2024-11-11 00:25 | XR_ITS ---
Examination: CT abdomen with intravenous contrast CT pelvis with intravenous contrast 2-D coronal reconstructions 2-D sagittal reconstructions Date and time of exam:November 11, 2024 1050 hrs. Comparison October 26, 2024 Indications: Severe abdominal pain after bowel surgery, history left nephrectomy. CTDI: vol (mGy) 15.1 DLP: (mGycm) 848 Technique: Multiple axial sections of the abdomen and pelvis have been obtained. 64 slice high-resolution scanner used. 3 mm axial sections have been obtained, post intravenous injection 30 cc [id number] 2-D sagittal, coronal reconstructions obtained. Low dose protocols were performed. One or more of the following dose reduction techniques were used; automated exposure control, adjustment of the mA and/or KV according to patient size, use of iterative reconstruction technique. Findings: Left base pneumonia Minimal left pleural disease No focal liver lesions Distended gallbladder with gallbladder wall thickening and marked pericholecystic inflammatory change Absent left kidney No right hydronephrosis Dense abdominal aortic calcification Anterior abdominal wall postsurgical changes No bowel obstruction 20 mm right adnexal cyst Mild free fluid in the pelvis Urinary bladder intact Mild small bowel ileus Impression: Left base pneumonia Recommend hepatobiliary sonography follow-up to confirm acute acalculous cholecystitis
[2024-11-11 01:01] LABS: Lactate (Lactic Acid) 1.4 mMol/L (0.4-2.0)
[2024-11-11 01:04] LABS: Basophils # (Auto) 0.1 Thou/mm3 (0.0-0.2); Basophils % (Auto) 0 % (0-2.5); Hematocrit 35.9 % (36.0-46.0); Hemoglobin 12.4 g/dL (12.0-16.0); Lymphocytes % (Auto) 3 % (10-50); Mean Corpuscular HGB Conc 34.5 g/dl (31.0-37.0); Mean Corpuscular Volume 87 fL (80-100); Monocytes % (Auto) 5 % (0-12); Nucleated Red Blood Cell % 0 /100 WBC (0); Platelet Count 599 Thou/mm3 (140-440); RDW Standard Deviation 39.8 fL (36.4-46.3); Red Blood Count 4.13 Miln/mm3 (4.00-5.20)
[2024-11-11 01:19] LABS: Sed Rate (ESR) 53 mm/hr (0-30)
--- NOTE | 2024-11-11 01:35 | PC.CC ---
Gwendolyn SILVA arranged transportation for patient to [place] via [facility] 1100.
[2024-11-11 01:40] LABS: Alanine Aminotransferase 19 U/L (10-49); Albumin/Globulin Ratio 1.3 (1.2-2.2); Alkaline Phosphatase 133 U/L (46-116); Anion Gap 12 (7-16); Aspartate Amino Transferase 30 U/L (0-34); BUN/Creatinine Ratio 6 Ratio (12-20); Band Neutrophils (Manual) 1 % (0-6); Bilirubin,Total 0.4 mg/dL (0.3-1.2); Blood Urea Nitrogen 6 mg/dL (9-23); C-Reactive Protein 2.9 mg/dL (0.0-0.9); Calcium 9.8 mg/dL (8.3-10.6); Calcium (Corrected) 9.8 mg/dL (8.5-10.1); Chloride 94 mMol/L (98-107); Estimated Creatinine Clearance 49.7 mL/min (>60); Glucose 200 mg/dL (74-106); Lymphocytes (Manual) 6 % (20-44); Magnesium 1.8 mg/dL (1.6-2.6); Monocytes (Manual) 6 % (2-9); Neutrophils (Manual) 87 % (50-70); Osmolality,Calculated 271 (275-295); Potassium 2.9 mMol/L (3.4-5.1); Procalcitonin 0.11 ng/ml (0.0-0.49); Sodium 134 mMol/L (136-145); eGFR 60 See Note
[2024-11-11 01:42] LABS: Anisocytosis Slight
[2024-11-11 01:50] LABS: Neutrophils % (Auto) 92 % (37-80)
[2024-11-11 01:51] LABS: Eosinophils % (Auto) 0 % (0-10); Lymphocytes # (Auto) 0.7 Thou/mm3 (1.0-4.8); Monocytes # (Auto) 1.1 Thou/mm3 (0.0-0.8)
[2024-11-11 01:52] LABS: Immature Granulocytes % (Auto) 1 % (0-0); Immature Granulocytes Auto 0.14 Thou/mm3 (0.00-0.00); Nucleated Red Blood Cell # 0.02 Thou/mm3 (0.00-0.00)
[2024-11-11] MEDS: SODIUM CHLORIDE 0.9% 1000 ML 1,000 ML 999 ML IV (02:10)
[2024-11-11] MEDS: ONDANSETRON INJ 2 MG/ML INJ 2 ML 4 MG IV (02:11)
[2024-11-11] MEDS: HYDROmorphone INJ 2 MG/ML VIAL 1 MG IVP ×8 (02:11→22:53)
[2024-11-11] MEDS: PIPER/TAZO 3.375 GM PREMIX 3.375 GM/50 ML BAG IV (03:23)
--- NOTE | 2024-11-11 03:43 | XR_ITS ---
Examination: CT brain head without contrast. 2-D sagittal coronal reconstructions Date and time of exam:November 11, 2024 10:50 AM Indications: High blood pressure with headaches today CTDI: vol (mGy):49.3 DLP: (mGycm):991 Technique: Multiple CT axial sections of the brain have been obtained, 5 mm slice thickness. Contrast has not been administered. 2-D sagittal, coronal reconstructions have been obtained Low dose protocols were performed. One or more of the following dose reduction techniques were used; automated exposure control, adjustment of the mA and/or KV according to patient size, use of iterative reconstruction technique. Findings: No significant ventricular enlargement. Intra-axial or extra-axial hemorrhage density is not seen. No mass effect or midline shift Basal cisterns are not remarkable. Fourth ventricle is midline. Cranial vault intact. Impression: Negative for acute hemorrhage, mass effect or midline shift
[2024-11-11] MEDS: POTASSIUM CHLORIDE 10% 20 MEQ/15 ML UDC 40 MEQ PO ×2 (04:04→05:01)
[2024-11-11] MEDS: cloNIDine HCL 0.1 MG TABLET 0.3 MG PO (04:04)
[2024-11-11] MEDS: METOPROLOL TARTRATE 25 MG TABLET 50 MG PO (04:05)
[2024-11-11 05:05] LABS: Bilirubin,Urine Negative (Negative); Blood,Urine Negative (Negative); Clarity,Urine Clear (Clear/Hazy); Collection Type, Urine Clean Catch; Color,Urine Colorless (Lt Yel-Yel); Culture Indicated,Urine Not Indicated; Glucose, Urine Trace (Negative); Ketones,Urine Trace (Negative); Leukocyte Esterase,Urine Negative (Negative); Nitrite,Urine Negative (Negative); PH,Urine 7.5 (5.0-7.0); Protein,Urine 2+ (Neg - Trace); RBC,Urine 2 /hpf (0-3); Specific Gravity,Urine 1.008 (1.001-1.035); Squamous Epithelial Cell,Urine < 1 /hpf (0-5); Urobilinogen,Urine Negative mg/dL (0.0-1.0); WBC,Urine 2 /hpf (0-5)
--- NOTE | 2024-11-11 06:03 | PD.EDADDENDU ---
Emergency Room Addendum Addendum Narrative: 0600: Care assumed from Dr. Xiao, the previous shift emergency physician. Past medical, surgical, social and family history reviewed. Vitals and home medications reviewed. I will assume the care of the patient at this time, pending head CT, abdomen/pelvis CT, and final disposition. Please refer to the emergency department record for history and examination from initial visit.? Physical exam by me shows patient under no acute distress at this time. 0940: Discussed test HPI, PMHx, lab, radiology results and/or management with hospitalist. Will admit for further evaluation and management. Accepts patient for admission. Diagnoses: - SBO - Abdominal pain
--- NOTE | 2024-11-11 06:37 | XR_ITS ---
Examination: Abdomen 2 views Technique: AP upright AP supine abdomen 2 views Exam date and time: December 2024 0703 hrs. Indications: History abdominal surgery 2 weeks ago with diarrhea abdominal pain Findings: Significantly air and stool distended colon No free air Moderately air distended stomach Prominent osteopenia Impression: Colonic ileus Moderately air distended stomach
--- NOTE | 2024-11-11 07:51 | PC.NURSE ---
Report received from pm nurse, patient lying in gurney in semifowler's position with family at bedside, patient to er with c/o upper mid abd. pain since 12pm yesterday, patient had recent bowel surgery last month, linda in place at this time, patient states she is suppose to f/u with Surgeon on sunday. Patient states pain to upper mid abdomen 3/10 at this time after administration of medication by pm nurse, skin is warm dry and slighlty pale, patient awaiting results, call light within reach.
--- NOTE | 2024-11-11 08:32 | PC.NURSE ---
Patient c/o 03/15 upper mid abdominal pain, Dr. Hurst made aware, states she will place orders for pain medication
--- NOTE | 2024-11-11 09:07 | PC.NURSE ---
Patient had 1000ml of output from NG insert gastric contents with relief of abd, pain. Will notify Dr. Hurst
[2024-11-11] MEDS: HEPARIN SOD INJ 5000 UNIT/ML VIAL SC ×2 (11:17→22:03)
--- NOTE | 2024-11-11 11:24 | XR_ITS ---
Examination: Abdomen sonogram, Limited Date and time of exam: November 11, 2024 1211 hrs. Indications: Epigastric pain today, postop abdominal surgery October 28, 2024, abnormal thickening of the gallbladder wall on CT abdomen study today Technique: Real-time hawthorne scale transabdominal sonographic images of the upper abdomen obtained. Findings: Multiple gallstones Gallbladder wall 24 0 cm Common bile duct 0.3 cm Pancreatic head 2.5 cm Liver 16.2 cm lobular contour fatty infiltration Normal hepatopedal portal venous flow Patent IVC Impression: Cholelithiasis, suspicious for cholecystitis, recommend HIDA scan or MRCP follow-up
--- NOTE | 2024-11-11 11:56 | PC.SS ---
Initial assessment: this is 74 year old female pending hospital admission for abdominal pain. Patient appears alert/oriented. Patient able to confirm demographic information. Patient lives at home with spouse, Kike Saunders. Patient identified spouse as alternate medical surrogate decision maker. Patient informs she is independent with ADL's. No use of DME required. Patient followed by provider Anika Antoine for primary care. Patient also followed by Dr. Alvarado, and Dr. Weeks. Patient states that the discharge plan is to return home upon being medically cleared. Patient's spouse able to transport home. No needs identified at this time. D/c plan: home Next of kin: spouse, Kike Saunders
[2024-11-11] MEDS: cefTRIAXone/D5w 1gm IV premix 1 GM/50 ML BAG IV (14:44)
--- NOTE | 2024-11-11 15:24 | PD.SURCONS ---
HPI Consult details Consult date: 11/11/24 Reason for consultation narrative: Epigastric and right upper quadrant abdominal pain with nausea and vomiting History of present illness: 74-year-old female with history of hypertension, diabetes, hypercholesterolemia and depression was admitted to the hospital about 2 weeks ago with small bowel obstruction. Patient underwent exploratory laparotomy with lysis of adhesions. She recovered well from surgery and was discharged. Over the past few days she is noted worsening epigastric and right upper quadrant abdominal pain associated with nausea and vomiting. She has not been able to tolerate any food. Abdominal ultrasound and CT scan revealed multiple gallstones with gallbladder wall thickening, distended gallbladder with pericholecystic edema. She was started on IV antibiotics and admitted for further management. Review of Systems Constitutional Constitutional: Denies chills and Denies fever(s) Cardiovascular Cardiovascular: Denies chest pain Respiratory Respiratory: Denies cough Gastrointestinal Gastrointestinal: Reports abdominal pain, Reports nausea and Reports vomiting Genitourinary Genitourinary: Denies difficulty voiding Hematologic/Lymphatic Hematologic/Lymphatic: Denies easy bleeding and Denies easy bruising Past Medical History Surgical History OTHER SURGICAL HX: Exp Lap with ANJEL, Robotic left nephrectomy, shoulder surgery, carpal tunnel release Social History SMOKING STATUS: Never smoker SUBSTANCE USE: does not use ALCOHOL: Never Meds Home Medications and Allergies Home Medications ?Medication ?Instructions ?Recorded ?Confirmed ?Type VALSARTAN/HYDROCHLOROTHIAZIDE 1 tab PO QAMAC ##0 11/10/14 11/11/24 History (VALSARTAN-HCTZ 320-25 MG TAB) omeprazole 20 mg capsule,delayed 20 mg PO QDAY ##0 11/10/14 11/11/24 History release (Prilosec) Cyanocobalamin (Vitamin B-12) 1,500 mcg PO .qd ##0 11/11/14 11/11/24 History (B-12) cholecalciferol (vitamin D3) 50 2,000 unit PO DAILY #0 caps 11/11/14 11/11/24 History mcg (2,000 unit) capsule (D3-2000) duloxetine 30 mg capsule,delayed 30 mg PO QDAY 03/12/23 11/11/24 History release duloxetine 60 mg capsule,delayed 60 mg PO DAILY 10/26/24 11/11/24 History release tirzepatide 15 mg/0.5 mL 12.5 mg subcut QWEEK 10/26/24 11/11/24 History subcutaneous pen injector (Darrell) atorvastatin 20 mg tablet 20 mg PO QDAY 11/11/24 11/11/24 History Allergies Allergy/AdvReac Type Severity Reaction Status Date / Time walnut Allergy Verified 11/13/24 16:02 Exam Vital Signs Temp Pulse Resp BP Pulse Ox O2 Del Method O2 Flow Rate 98.7 F 82 20 170/80 H 95 Room Air 2 11/11/24 14:11 11/11/24 14:11 11/11/24 14:11 11/11/24 14:11 11/11/24 14:11 11/11/24 14:11 11/11/24 06:16 Constitutional Constitutional: no acute distress Routine HEENT Exam Eye: Present PERRL (Anicteric sclera) Routine Abdominal Exam Abdominal: Present soft, normoactive bowel sounds and tenderness (Right upper quadrant tenderness palpation with guarding, positive Moore sign); Absent distended Results Results: Laboratory Laboratory results: results reviewed Results: Imaging CT scan - abdomen: report reviewed and image reviewed CT scan - pelvis: report reviewed and image reviewed US - abdomen: report reviewed Assessment & Plan Problem List (1) Calculus of gallbladder with acute cholecystitis without obstruction: Status: Acute Plan Will plan for laparoscopic possible open cholecystectomy tomorrow. Risks include but not limited to infection, bleeding, injury to bowel, liver, stomach, bile duct, retained stone, bile leak, abdominal sepsis and or abdominal abscess, need for further procedure and or operation discussed with the patient and her . Benefits and alternatives explained to them, all their questions answered, they agreed and consented to proceed with the operation.
[2024-11-11] MEDS: metroNIDAZOLE/NS 500 MG IVPB 500 MG/100 ML BAG 200 MG IV ×2 (15:29→22:03)
--- NOTE | 2024-11-11 15:56 | ESHP_ITS ---
<Statement entered by Melisa Hou MD - 11/20/24 07:26> I reviewed above note and agree with findings and plans. I have also personally examined the patient with medicine team and went over assessment and plan with medical team including computer science intern and resident physician. Documentation for date of: 11/11/24 HPI History of Present Illness Chief complaint: Abdominal pain History of present illness: 74 y/o F with PMHx significant for diabetes, hypertension, hyperlipidemia, restless leg syndrome, left nephrectomy, SBO with ex lap performed 10/28/2024 presented with chief complaint of burning abdominal pain. Pain began 2 days ago, sudden onset, localized epigastrium and worse when eating food. Patient had mild nausea with poor p.o. intake during this time. Patient has not had a bowel movement or flatus for 2 days. Patient denies fevers, chills, chest pain, shortness of breath, vomiting. ED COURSE: Labs significant for: WBCs 23, potassium 2.9 (repleted), point 0.4, CRP 2.9, Pro-Julian Negative. Imaging significant for: CT showing distended gallbladder with wall thickening and inflammatory changes, no bowel obstruction (taken after NG tube placement). Patient received NG tube, immediately had approximately 1 L output with significant improvement in pain. Patient seen multiple doses of Dilaudid. PMH: Diabetes, hypertension, hyperlipidemia, restless leg syndrome, left nephrectomy, SBO PSH: Radical left nephrectomy, exploratory laparotomy for adhesions. SH: Denies tobacco, alcohol, illicit drug use. Allergies:?NKDA Medications: Atorvastatin, duloxetine, Mounjaro, omeprazole, ropinirole, valsartan/hydrochlorothiazide Review of Systems Review of Systems Systems Reviewed: All systems reviewed, normal except as documented Past Medical History Past Medical History Comments PMH COMMENT: PMH: Diabetes, hypertension, hyperlipidemia, restless leg syndrome, left nephrectomy, SBO PSH: Radical left nephrectomy, exploratory laparotomy for adhesions. SH: Denies tobacco, alcohol, illicit drug use. Allergies:?NKDA Medications: Atorvastatin, duloxetine, Mounjaro, omeprazole, ropinirole, valsartan/hydrochlorothiazide Exam Vital Signs Temp Pulse Resp BP Pulse Ox O2 Del Method O2 Flow Rate 98.7 F 82 20 170/80 H 95 Room Air 2 11/11/24 14:11 11/11/24 14:11 11/11/24 14:11 11/11/24 14:11 11/11/24 14:11 11/11/24 14:11 11/11/24 06:16 Narrative Exam PE: Gen: Well-developed and well-nourished. HEENT: NCAT, PERRLA, EOMI, MMM, anicteric conjunctivae. CVS: normal S1 and S2. RRR. No M/R/G. Resp: CTA B/L. No rhonchi, rales, crackles or wheezing. Abd: soft, non-distended. Epigastric tenderness to deep palpation. MSK: Good ROM in BUE & BLE. No edema or rash. Neuro: CN II-XII grossly intact. Strength 5/5 in BUE & BLE. Alert and oriented x3. Psych: appropriate mood and affect. Results: Labs 11/11/24 00:53 11/11/24 00:53 Labs: Short CBC 11/11/24 Range/Units 00:53 WBC 23.0 H (3.6-11.0) Thou/mm3 Hgb 12.4 (12.0-16.0) g/dL Hct 35.9 L (36.0-46.0) % Plt Count 599 H D (140-440) Thou/mm3 BMP 11/11/24 00:53 Sodium 134 L Potassium 2.9 L Chloride 94 L Carbon Dioxide 28.0 BUN 6 L Creatinine 1.0 Glucose 200 H Calcium 9.8 Liver Function 11/11/24 Range/Units 00:53 Total Bilirubin 0.4 (0.3-1.2) mg/dL AST 30 (0-34) U/L ALT 19 (10-49) U/L Alkaline Phosphatase 133 H (46-116) U/L Albumin 4.0 (3.4-4.8) gm/dL Urine 11/11/24 Range/Units 03:36 Urine Color Colorless A (Lt Yel-Yel) Urine Clarity Clear (Clear/Hazy) Urine pH 7.5 H (5.0-7.0) Ur Specific [place] 1.008 (1.001-1.035) Urine Protein 2+ A (Neg - Trace) Urine Glucose (UA) Trace (Negative) Quality Measures Quality Measures VTE prophylaxis Advance care planning discussed with:: patient Medications Home Medications and Allergies Home Medications ?Medication ?Instructions ?Recorded ?Confirmed ?Type VALSARTAN/HYDROCHLOROTHIAZIDE 1 tab PO QAMAC ##0 11/1011/11/24 History (VALSARTAN-HCTZ 320-25 MG TAB) omeprazole 20 mg capsule,delayed 20 mg PO QDAY ##0 02/1711/11/24 History release (Prilosec) Cyanocobalamin (Vitamin B-12) 1,500 mcg PO .qd ##0 03/2011/11/24 History (B-12) cholecalciferol (vitamin D3) 50 2,000 unit PO DAILY #0 caps 11/11/14 11/11/24 History mcg (2,000 unit) capsule (D3-2000) duloxetine 30 mg capsule,delayed 30 mg PO QDAY 3 11/11/24 History release duloxetine 60 mg capsule,delayed 60 mg PO DAILY 11/11/24 History release ropinirole 2 mg tablet 4 mg PO DAILY 10/26/2411/11 History tirzepatide 15 mg/0.5 mL 12.5 mg subcut QWEEK 5 11/11/24 History subcutaneous pen injector (Mounjaro) atorvastatin 20 mg tablet 20 mg PO QDAY 11/11/2411/11 History Allergies Allergy/AdvReac Type Severity Reaction Status Date / Time No Known Allergies Allergy Verified 11/10/24 21:35 Visit Medications Acetaminophen (Acetaminophen Supp 650 Mg Supp) 650 mg ID Q6HR PRN PRN Reason: Fever > 100.4 or pain Stop: 12/11/24 10:21 Heparin Sodium (Porcine) (Heparin Sod Inj 5000 Unit/Ml Vial) 5,000 unit SC Q12H MYKEL Stop: 11/25/24 10:29 Last Admin: 11/11/24 11:17 Dose: 5,000 unit Hydromorphone HCl (Hydromorphone Inj 2 Mg/Ml Vial) 1 mg IVP Q4H PRN PRN Reason: PAIN Stop: 11/16/24 10:21 Last Admin: 11/11/24 14:44 Dose: 1 mg Ceftriaxone Sodium/Dextrose (Rocephin/D5w 1gm Iv Premix) 1 gm in 50 mls @ 100 mls/hr IV QDAY [facility] Stop: 11/18/24 13:50 Last Infusion: 11/11/24 15:26 Dose: Infused Metronidazole (Flagyl 500 Mg Iv) 500 mg in 100 mls @ 200 mls/hr IV Q8HR [facility] Stop: 11/18/24 13:53 Last Admin: 11/11/24 15:29 Dose: 200 mls/hr Ondansetron HCl (Ondansetron Inj 2 Mg/Ml Inj 2 Ml) 4 mg IV Q6H PRN; Protocol PRN Reason: NAUSEA OR VOMITING Stop: 12/11/24 10:21 Pantoprazole Sodium (Pantoprazole Inj 40 Mg Vial) 40 mg IVP Q12HR [facility] Stop: 12/11/24 20:59 Discontinued Medications Bisacodyl (Bisacodyl 10 Mg Supp) 10 mg ID X1 ONE; Protocol Stop: 11/11/24 15:36 Clonidine (Clonidine Hcl 0.1 Mg Tablet) 0.3 mg PO X1 ONE Stop: 11/11/24 03:43 Last Admin: 11/11/24 04:04 Dose: 0.3 mg Hydromorphone HCl (Hydromorphone Inj 2 Mg/Ml Vial) 1 mg IVP X1 ONE Stop: 11/11/24 00:25 Last Admin: 11/11/24 02:11 Dose: 1 mg Hydromorphone HCl (Hydromorphone Inj 2 Mg/Ml Vial) 1 mg IVP X1 ONE Stop: 11/11/24 05:06 Last Admin: 11/11/24 05:11 Dose: 1 mg Hydromorphone HCl (Hydromorphone Inj 2 Mg/Ml Vial) 1 mg IVP X1 ONE Stop: 11/11/24 06:37 Last Admin: 11/11/24 06:58 Dose: 1 mg Hydromorphone HCl (Hydromorphone Inj 2 Mg/Ml Vial) 1 mg IVP X1 ONE Stop: 11/11/24 08:34 Last Admin: 11/11/24 08:43 Dose: 1 mg Sodium Chloride (Ns) 1,000 mls @ 999 mls/hr IV .Q1H1M ONE Stop: 11/11/24 01:24 Last Infusion: 11/11/24 03:11 Dose: Infused Piperacillin/Tazobactam/Dextrose (Zosyn) 3.375 gm in 50 mls @ 100 mls/hr IV X1 ONE Stop: 11/11/24 03:25 Last Infusion: 11/11/24 03:53 Dose: Infused Metoprolol Tartrate (Metoprolol Tartrate 25 Mg Tablet) 50 mg PO X1 ONE Stop: 11/11/24 03:43 Last Admin: 11/11/24 04:05 Dose: 50 mg Ondansetron HCl (Ondansetron Inj 2 Mg/Ml Inj 2 Ml) 4 mg IV X1 ONE; Protocol Stop: 11/11/24 00:25 Last Admin: 11/11/24 02:11 Dose: 4 mg Potassium Chloride (Potassium Chloride 10% 20 Meq/15 Ml Udc) 40 meq PO X1 ONE Stop: 11/11/24 02:56 Last Admin: 11/11/24 04:04 Dose: 40 meq Potassium Chloride (Potassium Chloride 10% 20 Meq/15 Ml Udc) 40 meq PO X1 ONE Stop: 11/11/24 03:43 Last Admin: 11/11/24 05:01 Dose: 40 meq Assessment & Plan Plan 74 y/o F with PMHx significant for diabetes, hypertension, hyperlipidemia, restless leg syndrome, left nephrectomy, SBO with ex lap performed 10/28/2024 presented with chief complaint of burning abdominal pain, admitted for SBO and possible cholecystectomy. #SBO Patient presented with abdominal pain, no bowel movement or flatus for 2 days. Patient's history of SBO corrected with ex lap 10/28/2024. Patient received NG tube with 1 L output immediately, HANANE significant improvement in abdominal pain. CT did not show bowel obstruction, was taken after NG tube. - N.p.o. - Maintain NG tube on low intermittent suction until output decreases - Dr Victoria consulted, appreciate recommendations - Dilaudid 1 mg IV every 4 hours as needed for severe pain - Protonix 40 mg IV twice daily #Cholecystitis, seen on imaging Patient has abdominal pain, localized epigastrium, worse with palpation. CT imaging showed gallbladder wall thickening and inflammatory changes, follow-up ultrasound showed cholelithiasis and findings suspicious for cholecystitis. - Surgery consulted as above, appreciate recommendations - Rocephin 1 g IV daily (started 11/11) - Flagyl 500 mg IV every 8 hours (started 11/11) - Dilaudid as above #Diabetes, patient history #Hypertension, patient history Patient has history as stated. A1c 5.5% as of 10/23/2024. - Insulin sliding scale - Consider resuming home antihypertensives when appropriate #Restless leg syndrome, patient history Patient history as stated. - Resume home meds: Requip 4 mg at 5 PM daily DVT prophylaxis: Heparin GI prophylaxis: Protonix Diet: N.p.o. Lines: Peripheral IV, NG tube Code status: Full code Plan of care discussed with senior resident Dr. Ferguson PGY?[address] Hou. Sergey Santana MD PGY?1
[2024-11-11] MEDS: PANTOPRAZOLE INJ 40 MG VIAL IVP (22:03)
[2024-11-12] VITALS (15 sets, daily range): BP systolic 94–128; BP diastolic 49–71; PULSE 71–91; RESP 17–20; TEMP 36.1–37.1; O2SAT 90–100; BMI 27.3
[2024-11-12] MEDS: rOPINIRole HCL 1 MG TABLET 4 MG PO ×2 (00:16→17:05)
[2024-11-12] MEDS: metroNIDAZOLE/NS 500 MG IVPB 500 MG/100 ML BAG 200 MG IV ×3 (05:49→21:42)
[2024-11-12 06:27] LABS: Alanine Aminotransferase 14 U/L (10-49); Albumin, Serum 3.2 gm/dL (3.4-4.8); Albumin/Globulin Ratio 1.3 (1.2-2.2); Alkaline Phosphatase 120 U/L (46-116); Anion Gap 9 (7-16); Aspartate Amino Transferase 25 U/L (0-34); BUN/Creatinine Ratio 10 Ratio (12-20); Bilirubin,Total 0.4 mg/dL (0.3-1.2); Blood Urea Nitrogen 11 mg/dL (9-23); Calcium 9.5 mg/dL (8.3-10.6); Calcium (Corrected) 10.1 mg/dL (8.5-10.1); Carbon Dioxide 28.9 mMol/L (20.0-31.0); Chloride 96 mMol/L (98-107); Creatinine (Component) 1.1 mg/dL (0.6-1.3); Estimated Creatinine Clearance 45.2 mL/min (>60); Globulin 2.4 gm/dL (2.3-3.5); Glucose 123 mg/dL (74-106); Magnesium 1.6 mg/dL (1.6-2.6); Osmolality,Calculated 268 (275-295); Phosphorous 4.2 mg/dL (2.4-5.1); Potassium 4.2 mMol/L (3.4-5.1); Sodium 134 mMol/L (136-145); Total Protein 5.6 gm/dL (5.7-8.2); eGFR 53 See Note
[2024-11-12 06:33] LABS: Basophils # (Auto) 0.1 Thou/mm3 (0.0-0.2); Basophils % (Auto) 0 % (0-2.5); Eosinophils % (Auto) 0 % (0-10); Hematocrit 34.2 % (36.0-46.0); Hemoglobin 11.2 g/dL (12.0-16.0); Immature Granulocytes % (Auto) 3 % (0-0); Immature Granulocytes Auto 1.01 Thou/mm3 (0.00-0.00); Lymphocytes # (Auto) 0.9 Thou/mm3 (1.0-4.8); Lymphocytes % (Auto) 2 % (10-50); Mean Corpuscular HGB Conc 32.7 g/dl (31.0-37.0); Mean Corpuscular Hemoglobin 30.3 pg (25.0-35.0); Mean Corpuscular Volume 92 fL (80-100); Monocytes # (Auto) 1.8 Thou/mm3 (0.0-0.8); Monocytes % (Auto) 5 % (0-12); Neutrophils # (Auto) 34.3 Thou/mm3 (1.8-7.7); Neutrophils % (Auto) 90 % (37-80); Nucleated Red Blood Cell % 0 /100 WBC (0); Platelet Count 495 Thou/mm3 (140-440); RDW Standard Deviation 43.8 fL (36.4-46.3)
[2024-11-12] MEDS: INSULIN LISPRO (AdmeLOG) 1 UNIT/0.01 ML UNIT SC ×2 (06:33→17:05)
[2024-11-12] MEDS: HYDROmorphone INJ 2 MG/ML VIAL 1 MG IVP ×3 (06:33→19:27)
[2024-11-12 06:47] LABS: White Blood Count 38.2 Thou/mm3 (3.6-11.0)
[2024-11-12 06:57] LABS: Glucose Estimated Average 111 mg/dL (80-131); Hemoglobin A1C 5.5 % Hgb (4.8-6.0)
[2024-11-12] MEDS: bisacodyL 5 MG TABEC 10 MG PO (08:24)
[2024-11-12] MEDS: bisacodyL 10 MG SUPP PR (08:25)
[2024-11-12] MEDS: cefTRIAXone/D5w 1gm IV premix 1 GM/50 ML BAG IV ×2 (08:26→20:13)
[2024-11-12] MEDS: PANTOPRAZOLE INJ 40 MG VIAL IVP ×2 (08:26→20:13)
[2024-11-12] MEDS: RINGERS LACTATED 1000 ML 1,000 ML 999 ML IV (09:24)
[2024-11-12 09:39] LABS: Path Review Blood Smear Sent to Pathologist
--- NOTE | 2024-11-12 12:24 | ESOP_ITS ---
Date of Procedure 11/12/24 Pre Op Diagnosis Cholelithiasis with acute cholecystitis Post Op Diagnosis Cholelithiasis with acute gangrenous cholecystitis Procedure Laparoscopic cholecystectomy Findings Distended, very tense and thick-walled gallbladder, gangrenous in appearance with multiple gallstones and significant pericholecystic inflammation Procedure Description Patient was brought into the operating room in supine position. After administration of general endotracheal anesthesia abdomen was prepped and draped in standard surgical manner. A Veress needle was inserted through the umbilicus and pneumoperitoneum was obtained up to 15 mmHg. The Veress needle was then removed, a 5 mm infraumbilical incision was made and the 5mm trocar was inserted. Laparoscopic camera was placed. Under direct visualization a laparoscopic camera a 10 mm trocar was placed in subxiphoid and two 5 mm trocars placed in right upper quadrant. The gallbladder was identified and was noted to be very tense, distended and thick-walled with gangrenous in appearance. The gallbladder was decompressed with an aspirator. It was retracted cephalad and laterally. Dissection started near the infundibulum of gallbladder where cystic duct and gallbladder junction clearly identified. The cystic duct was circumferentially dissected off the peritoneum and surrounding inflammatory tissue. The critical view of safety was clearly demonstrated. Cystic duct was then divided between 2 endoclips proximally and one distally. The cystic artery was similarly dissected and divided. The gallbladder was then from the liver bed using electrocautery. The gallbladder was then placed inside an Endo Catch and removed from the abdomen utilizing subxiphoid trocar site. The area was copiously and thoroughly washed and irrigated, all the fluid was suctioned and the suction fluid returned clear. Hemostasis achieved using electrocautery, also topical hemostatic agent placed at the gallbladder fossa to further assure hemostasis. Endoclips noted be in place and intact without any bleeding or any leakage. Hemostasis was adequate and satisfactory. The subxiphoid trocar sites fascial defect was closed with 0 Vicryl using Endo Closure device. Instruments and trocars removed, pneumoperitoneum was evacuated and the incisions closed with 4-0 Monocryl in subcuticular fashion. Instrument needle and sponge counts were all reported to be correct X2. Patient tolerated the procedure well, was extubated, breathing spontaneously and without diffi culty and was transferred to postanesthesia care in stable condition. Anesthesia GETA and local Pathology / specimen Other (Gallbladder and contents) Estimated Blood Loss 25 Condition Stable Surgeon Aide Victoria MD Surgical Staff Operation Date: 11/12/24 11:15 Case Staff Anesthesiologist: Ke Hubbard RNmarine design engineer: Sandra Aldana
--- NOTE | 2024-11-12 12:32 | SUR.PHASEI ---
1232 Patient arrived to recovery resting comfortably in [facility], on oxygen 4L via nasal cannula with an oral airway in place, breathing unlabored, vital signs stable, dressing intact to abdomen; linda, fluffs, medipore tape x1, linda, bandaid x3, abdominal binder, no bleeding noted, report received from Dr. Hubbard and Arian PAUL
--- NOTE | 2024-11-12 13:16 | SUR.PHASEI ---
1308 Report given to Nhi PAUL, patient meets discharge criteria from recovery, awake and alert talking with staff, on oxygen 4L via nasal cannula, breathing unlabored, vital signs stable, denies pain, dressing intact; no bleeding noted, eating ice chips; tolerating well. 1316 Patient transported via gurney to room 357
[2024-11-12] MEDS: RINGERS LACTATED 1000 ML 1,000 ML 75 ML IV (13:56)
[2024-11-12 14:26] LABS: Basophils # (Auto) 0.1 Thou/mm3 (0.0-0.2); Basophils % (Auto) 0 % (0-2.5); Eosinophils % (Auto) 0 % (0-10); Hematocrit 30.3 % (36.0-46.0); Hemoglobin 10.2 g/dL (12.0-16.0); Immature Granulocytes % (Auto) 5 % (0-0); Immature Granulocytes Auto 1.27 Thou/mm3 (0.00-0.00); Lymphocytes # (Auto) 0.5 Thou/mm3 (1.0-4.8); Lymphocytes % (Auto) 2 % (10-50); Mean Corpuscular HGB Conc 33.7 g/dl (31.0-37.0); Mean Corpuscular Volume 89 fL (80-100); Monocytes % (Auto) 4 % (0-12); Neutrophils # (Auto) 24.8 Thou/mm3 (1.8-7.7); Neutrophils % (Auto) 90 % (37-80); Nucleated Red Blood Cell % 0 /100 WBC (0); Platelet Count 419 Thou/mm3 (140-440); RDW Standard Deviation 43.5 fL (36.4-46.3); White Blood Count 27.6 Thou/mm3 (3.6-11.0)
--- NOTE | 2024-11-12 14:51 | ESPR_ITS ---
<Statement entered by Melisa Hou MD - 11/20/24 07:27> I reviewed above note and agree with findings and plans. I have also personally examined the patient with medicine team and went over assessment and plan with medical team including project internship and resident physician. <Statement entered by Юлия Huerta MD - 11/12/24 15:10> Patient was seen and examined at bedside. No acute overnight event. Patient is hemodynamically stable however CBC revealed significant elevation of WBC, 38.2, patient is afebrile. Surgery is on board patient had laparoscopic cholecystectomy, which revealed nonperforated gangrenous cholecystitis. Surgery went without complication. Will continue with Rocephin and Flagyl, monitor daily CBC/CMP, de-escalate antibiotics once patient condition continue to Improve. Pain managed with [place] and Dilaudid. Patient will be starting on diet per surgery. Will continue close monitor. #Abdominal pain secondary due to acute gangrenous cholecystitis, status post laparoscopic cholecystectomy Surgery is on board, recs appreciated Pain management as needed Continue antibiotics Will continue close monitor. I personally saw and examined the patient and discussed the assessment and plan with the entire medicine team, including my attending Dr. Hou, Юлия Huerta M.D. PGY-2 Disclaimer: Despite multiple revisions, due to the dictation software being used, the document bellow may not be free of grammatical errors including phonetic/typographic errors. However, this does not deter from our commitment to providing health care in the patient's best interest in mind. Documentation for date of: 11/12/24 Subjective Subjective Interval history: No overnight events. Patient seen and examined s/p cholecystectomy, resting comfortably in bed. Patient endorses mildly increased pain and lethargy following surgery, otherwise feeling well. Denies fevers, chills, shortness of breath, chest pain, nausea, vomiting. Laparoscopy showed gangrenous cholecystitis, removed. Patient started on full liquid diet, will advance as tolerated. Exam Vital Signs Temp Pulse Resp BP Pulse Ox O2 Del Method O2 Flow Rate 98.1 F 71 20 108/66 97 Room Air 4 11/12/24 13:02 11/12/24 13:02 11/12/24 13:02 11/12/24 13:02 11/12/24 13:02 11/12/24 11:00 11/12/24 13:02 Narrative Exam PE: Gen: Well-developed and well-nourished. HEENT: NCAT, PERRLA, EOMI, MMM, anicteric conjunctivae. CVS: normal S1 and S2. RRR. No M/R/G. Resp: CTA B/L. No rhonchi, rales, crackles or wheezing. Abd: soft, non-distended. Mild diffuse tenderness. MSK: Good ROM in BUE & BLE. No edema or rash. Neuro: CN II-XII grossly intact. Strength 5/5 in BUE & BLE. Alert and oriented x3. Psych: appropriate mood and affect. Objective Labs 11/12/24 14:05 11/12/24 04:29 Labs: Laboratory Results - last 24 hr 11/12/24 11/12/24 04:29 14:05 WBC 38.2 H* D 27.6 H D RBC 3.70 L 3.40 L Hgb 11.2 L 10.2 L Hct 34.2 L 30.3 L MCV 92 89 MCH 30.3 30.0 MCHC 32.7 33.7 RDW Std Deviation 43.8 43.5 Plt Count 495 H D 419 D Neut % (Auto) 90 H 90 H Lymph % (Auto) 2 L 2 L [place] % (Auto) 5 4 Eos % (Auto) 0 0 Baso % (Auto) 0 0 Neut # (Auto) 34.3 H 24.8 H Lymph # (Auto) 0.9 L 0.5 L [place] # (Auto) 1.8 H 1.0 H Eos # (Auto) 0.0 0.0 Baso # (Auto) 0.1 0.1 Immature Gran # (Auto) 1.01 H 1.27 H Absolute Nucleated RBC 0.00 0.00 Immature Gran % 3 H 5 H Nucleated RBC % 0 0 Smear Path Review Sent to Pathologist Sodium 134 L Potassium 4.2 D Chloride 96 L Carbon Dioxide 28.9 Anion Gap 9 BUN 11 Creatinine 1.1 Estim Creat Clear Calc 45.2 L eGFR 53 L BUN/Creatinine Ratio 10 L Glucose [address] Glu mg/dL 111 Hemoglobin A1c 5.5 Calculated Osmolality 268 L Calcium 9.5 Corrected Calcium 10.1 Phosphorus 4.2 Magnesium 1.6 Total Bilirubin 0.4 AST 25 ALT 14 Alkaline Phosphatase 120 H Total Protein 5.6 L Albumin 3.2 L D Globulin 2.4 Albumin/Globulin Ratio 1.3 Quality Measures Quality Measures VTE prophylaxis Advance care planning discussed with:: patient Assessment & Plan Assessment Current Active Medications: Generic Name Dose Route Start Last Admin Trade Name Freq PRN Reason Stop Dose Admin Acetaminophen 650 mg 11/12/24 08:56 Acetaminophen Supp 650 Mg Supp PA 12/11/24 10:21 Q6HR PRN Fever > 100.4 or pain(1-3) Protocol Hydrocodone Bitart/Acetaminophen 1 tab 11/12/24 13:29 Hydrocodone/Apap 5/325 Tablet PO 11/17/24 13:28 Q6HR PRN PAIN SCALE 4-6 (Moderate Dextrose 25 ml 11/11/24 16:00 Dextrose 50%-Water Inj 50 Ml Syringe IV 12/11/24 15:59 Q15MIN PRN BG 50-70 responsive npo pt Dextrose 50 ml 11/11/24 16:00 Dextrose 50%-Water Inj 50 Ml Syringe IV 12/11/24 15:59 Q15MIN PRN BG <50 OR BG <70 & pt unresponsive Docusate Sodium 100 mg 11/12/24 21:00 Docusate Sod 100 Mg Capsule PO 12/12/24 20:59 BID MYKEL Protocol Glucagon 1 mg 11/11/24 16:00 Glucagon Inj 1 Mg Vial IM Q15MIN PRN BG <70, and no IV access Hydromorphone HCl 1 mg 11/12/24 13:31 11/12/24 13:56 Hydromorphone Inj 2 Mg/Ml Vial IVP 11/16/24 10:21 1 mg Q4H PRN Administration PAIN SCALE 7-10 (Severe Metronidazole 500 mg in 100 mls @ 200 mls/hr 11/11/24 13:54 11/12/24 13:56 Flagyl 500 Mg Iv IV 11/18/24 13:53 200 mls/hr Q8HR MYKEL Administration Lactated Ringer's 1,000 mls @ 75 mls/hr 11/12/24 08:22 11/12/24 13:56 Lactated Ringers IV 11/12/24 21:41 75 mls/hr .[id number] MYKEL Administration Ceftriaxone Sodium/Dextrose 1 gm in 50 mls @ 100 mls/hr 11/12/24 21:00 Rocephin/D5w 1gm Iv Premix IV 11/19/24 13:28 Q12HR MYKEL Insulin Human Lispro 0 unit 11/11/24 18:00 11/12/24 12:32 Insulin Lispro (Admelog) 1 Unit/0.01 Ml Unit SC 12/11/24 17:59 Not Given Q6HR MYKEL Protocol Ondansetron HCl 4 mg 11/11/24 10:22 Ondansetron Inj 2 Mg/Ml Inj 2 Ml IV 12/11/24 10:21 Q6H PRN NAUSEA OR VOMITING Protocol Pantoprazole Sodium 40 mg 11/11/24 21:00 11/12/24 08:26 Pantoprazole Inj 40 Mg Vial IVP 12/11/24 20:59 40 mg Q12HR MYKEL Administration Ropinirole HCl 4 mg 11/11/24 23:45 11/12/24 00:16 Ropinirole Hcl 1 Mg Tablet PO 12/11/24 23:44 4 mg QDAY@1800 [facility] Administration Plan 74 y/o F with PMHx significant for diabetes, hypertension, hyperlipidemia, restless leg syndrome, left nephrectomy, SBO with ex lap performed 10/28/2024 presented with chief complaint of burning abdominal pain, admitted for SBO and possible cholecystectomy. #Acute gangrenous cholecystitis, s/p lap louisa Patient has abdominal pain, localized epigastrium, worse with palpation. CT imaging showed gallbladder wall thickening and inflammatory changes, follow-up ultrasound showed cholelithiasis and findings suspicious for cholecystitis. Patient received laparoscopic cholecystectomy, which revealed tense nonperforated gangrenous cholecystitis. Patient tolerated procedure well. - Dr. Victoria consulted, appreciate recommendations - Rocephin 1 g IV daily (started 11/11) - Flagyl 500 mg IV every 8 hours (started 11/11) - Dilaudid 1 mg IV every 4 hours as needed for severe pain -[place] 5 1 tab p.o. every 6 hours as needed for mild pain - Diabetic full liquid diet, will advance #SBO Patient presented with abdominal pain, no bowel movement or flatus for 2 days. Patient's history of SBO corrected with ex lap 10/28/2024. Patient received NG tube with 1 L output immediately, HANANE significant improvement in abdominal pain. CT did not show bowel obstruction, was taken after NG tube. NG tube removed, patient found to have acute gangrenous cholecystitis, seems to be source of patient's constipation. - Dr Victoria consulted, appreciate recommendations - Dilaudid 1 mg IV every 4 hours as needed for severe pain - Protonix 40 mg IV twice daily - Treatment as above #Diabetes, patient history #Hypertension, patient history Patient has history as stated. A1c 5.5% as of 10/23/2024. - Insulin sliding scale - Consider resuming home antihypertensives when appropriate #Restless leg syndrome, patient history Patient history as stated. - Resume home meds: Requip 4 mg at 5 PM daily DVT prophylaxis: Heparin GI prophylaxis: Protonix Diet: N.p.o. Lines: Peripheral IV, NG tube Code status: Full code Plan of care discussed with senior resident Dr. Huerta PGY?[address] Hou. Sergey Santana MD PGY?1
--- NOTE | 2024-11-12 15:17 | PC.SS ---
Rounding note: Pending main management. Patient will be starting on diet per surgery. D/c plan is to return home.
[2024-11-12] MEDS: DOCUSATE SOD 100 MG CAPSULE PO (20:13)
[2024-11-13] VITALS (10 sets, daily range): BP systolic 120–149; BP diastolic 61–83; PULSE 79–94; RESP 17–93; TEMP 35.9–37.1; O2SAT 93–98
[2024-11-13] MEDS: HYDROmorphone INJ 2 MG/ML VIAL 1 MG IVP ×2 (02:55→08:14)
[2024-11-13] MEDS: metroNIDAZOLE/NS 500 MG IVPB 500 MG/100 ML BAG 200 MG IV ×3 (05:12→23:14)
[2024-11-13 05:37] LABS: Basophils % (Auto) 0 % (0-2.5); Eosinophils % (Auto) 0 % (0-10); Hematocrit 31.2 % (36.0-46.0); Immature Granulocytes % (Auto) 1 % (0-0); Immature Granulocytes Auto 0.26 Thou/mm3 (0.00-0.00); Lymphocytes # (Auto) 0.9 Thou/mm3 (1.0-4.8); Lymphocytes % (Auto) 3 % (10-50); Mean Corpuscular HGB Conc 32.1 g/dl (31.0-37.0); Mean Corpuscular Hemoglobin 29.9 pg (25.0-35.0); Mean Corpuscular Volume 93 fL (80-100); Monocytes % (Auto) 4 % (0-12); Neutrophils # (Auto) 23.8 Thou/mm3 (1.8-7.7); Neutrophils % (Auto) 92 % (37-80); Nucleated Red Blood Cell % 0 /100 WBC (0); Platelet Count 387 Thou/mm3 (140-440); RDW Standard Deviation 44.8 fL (36.4-46.3); Red Blood Count 3.34 Miln/mm3 (4.00-5.20)
[2024-11-13 06:17] LABS: Alanine Aminotransferase 23 U/L (10-49); Albumin/Globulin Ratio 1.2 (1.2-2.2); Alkaline Phosphatase 116 U/L (46-116); Anion Gap 5 (7-16); Aspartate Amino Transferase 34 U/L (0-34); BUN/Creatinine Ratio 16 Ratio (12-20); Bilirubin,Total 0.3 mg/dL (0.3-1.2); Blood Urea Nitrogen 16 mg/dL (9-23); Calcium 9.9 mg/dL (8.3-10.6); Calcium (Corrected) 10.7 mg/dL (8.5-10.1); Carbon Dioxide 29.9 mMol/L (20.0-31.0); Chloride 97 mMol/L (98-107); Estimated Creatinine Clearance 49.7 mL/min (>60); Globulin 2.5 gm/dL (2.3-3.5); Glucose 132 mg/dL (74-106); Magnesium 1.6 mg/dL (1.6-2.6); Osmolality,Calculated 267 (275-295); Phosphorous 3.3 mg/dL (2.4-5.1); Potassium 4.1 mMol/L (3.4-5.1); Sodium 132 mMol/L (136-145); Total Protein 5.5 gm/dL (5.7-8.2); eGFR 60 See Note
[2024-11-13] MEDS: cefTRIAXone/D5w 1gm IV premix 1 GM/50 ML BAG IV ×2 (08:13→21:00)
[2024-11-13] MEDS: PANTOPRAZOLE INJ 40 MG VIAL IVP ×2 (08:33→21:00)
[2024-11-13] MEDS: HYDROcodone/APAP 5/325 TABLET 1 TAB PO ×2 (11:47→21:01)
--- NOTE | 2024-11-13 14:24 | ESPR_ITS ---
<Statement entered by Melisa Hou MD - 11/21/24 08:54> I reviewed above note and agree with findings and plans. I have also personally examined the patient with medicine team and went over assessment and plan with medical team including phd intern and resident physician. <Statement entered by Юлия Huerta MD - 11/13/24 14:33> Patient was seen and examined. No acute overnight event. Patient postop day 1, cholecystectomy went without complication. Diet was resumed, advance as tolerated. Upon our evaluation patient was comfortably laying in bed, denied any shortness of breath, nausea, vomiting, or any other associated symptoms, patient did not pain medication, which will be weaned off slowly, continue antibiotics, WBC down trended. Continue close monitor vitals and labs, if patient continues to improve anticipate discharge in the next 24 hours with a plan to follow-up outpatient with surgery in 1 to 2 weeks. All questions and concerns were addressed. Patient given verbalized understanding. I personally saw and examined the patient and discussed the assessment and plan with the entire medicine team, including my attending , Юлия Huerta M.D. PGY-2 Disclaimer: Despite multiple revisions, due to the dictation software being used, the document bellow may not be free of grammatical errors including phonetic/typographic errors. However, this does not deter from our commitment to providing health care in the patient's best interest in mind. Documentation for date of: 11/13/24 Subjective Subjective Interval history: No overnight events. Patient seen examined at bedside, resting comfortably. Patient reports significant improvement, still requiring pain meds due to right upper quadrant tenderness. Patient denies fevers, chills, chest pain, shortness of breath, nausea, vomiting, pain with feeding. Encourage ambulation as tolerated. Diet advanced to low-fat diet. Continuing antibiotics pending WBC normalization. Exam Vital Signs Temp Pulse Resp BP Pulse Ox O2 Del Method O2 Flow Rate 97.7 F 90 18 131/61 H 97 Nasal Cannula 2 11/13/24 11:53 11/13/24 12:00 11/13/24 11:53 11/13/24 11:53 11/13/24 11:53 11/13/24 11:53 11/13/24 11:53 Narrative Exam PE: Gen: Well-developed and well-nourished. HEENT: NCAT, PERRLA, EOMI, MMM, anicteric conjunctivae. CVS: normal S1 and S2. RRR. No M/R/G. Resp: CTA B/L. No rhonchi, rales, crackles or wheezing. Abd: soft, non-distended. Mild diffuse tenderness, worse in right upper quadrant. MSK: Good ROM in BUE & BLE. No edema or rash. Neuro: CN II-XII grossly intact. Strength 5/5 in BUE & BLE. Alert and oriented x3. Psych: appropriate mood and affect. Objective Labs 11/13/24 05:00 11/13/24 05:00 Labs: Laboratory Results - last 24 hr 11/12/24 11/13/24 14:05 05:00 WBC 27.6 H D 26.0 H RBC 3.40 L 3.34 L Hgb 10.2 L 10.0 L Hct 30.3 L 31.2 L MCV 89 93 MCH 30.0 29.9 MCHC 33.7 32.1 RDW Std Deviation 43.5 44.8 Plt Count 419 D 387 D Neut % (Auto) 90 H 92 H Lymph % (Auto) 2 L 3 L [place] % (Auto) 4 4 Eos % (Auto) 0 0 Baso % (Auto) 0 0 Neut # (Auto) 24.8 H 23.8 H Lymph # (Auto) 0.5 L 0.9 L [place] # (Auto) 1.0 H 1.0 H Eos # (Auto) 0.0 0.0 Baso # (Auto) 0.1 0.0 Immature Gran # (Auto) 1.27 H 0.26 H Absolute Nucleated RBC 0.00 0.00 Immature Gran % 5 H 1 H Nucleated RBC % 0 0 Sodium 132 L Potassium 4.1 Chloride 97 L Carbon Dioxide 29.9 Anion Gap 5 L BUN 16 Creatinine 1.0 Estim Creat Clear Calc 49.7 L eGFR 60 BUN/Creatinine Ratio 16 Glucose 132 H Calculated Osmolality 267 L Calcium 9.9 Corrected Calcium 10.7 H Phosphorus 3.3 Magnesium 1.6 Total Bilirubin 0.3 AST 34 ALT 23 Alkaline Phosphatase 116 Total Protein 5.5 L Albumin 3.0 L Globulin 2.5 Albumin/Globulin Ratio 1.2 Quality Measures Quality Measures VTE prophylaxis Advance care planning discussed with:: patient Assessment & Plan Assessment Current Active Medications: Generic Name Dose Route Start Last Admin Trade Name Rosalina PRN Reason Stop Dose Admin Acetaminophen 650 mg 11/12/24 08:56 Acetaminophen Supp 650 Mg Supp [place] 12/11/24 10:21 Q6HR PRN Fever > 100.4 or pain(1-3) Protocol Hydrocodone Bitart/Acetaminophen 1 tab 11/12/24 13:29 11/13/24 11:47 Hydrocodone/Apap 5/325 Tablet PO 11/17/24 13:28 1 tab Q6HR PRN Administration PAIN SCALE 4-6 (Moderate Dextrose 25 ml 11/11/24 16:00 Dextrose 50%-Water Inj 50 Ml Syringe IV 12/11/24 15:59 Q15MIN PRN BG 50-70 responsive npo pt Dextrose 50 ml 11/11/24 16:00 Dextrose 50%-Water Inj 50 Ml Syringe IV 12/11/24 15:59 Q15MIN PRN BG <50 OR BG <70 & pt unresponsive Docusate Sodium 100 mg 11/12/24 21:00 11/13/24 11:20 Docusate Sod 100 Mg Capsule PO 12/12/24 20:59 Not Given BID MYKEL Protocol Glucagon 1 mg 11/11/24 16:00 Glucagon Inj 1 Mg Vial IM Q15MIN PRN BG <70, and no IV access Hydromorphone HCl 0.25 mg 11/13/24 11:19 Hydromorphone Inj 2 Mg/Ml Vial IVP 11/17/24 13:30 Q8H PRN PAIN SCALE 7-10 (Severe Metronidazole 500 mg in 100 mls @ 200 mls/hr 11/11/24 13:54 11/13/24 05:12 Flagyl 500 Mg Iv IV 11/18/24 13:53 200 mls/hr Q8HR MYKEL Administration Ceftriaxone Sodium/Dextrose 1 gm in 50 mls @ 100 mls/hr 11/12/24 21:00 11/13/24 08:13 Rocephin/D5w 1gm Iv Premix IV 11/19/24 13:28 100 mls/hr Q12HR MYKEL Administration Insulin Human Lispro 0 unit 11/12/24 17:00 11/13/24 11:51 Insulin Lispro (Admelog) 1 Unit/0.01 Ml Unit SC 12/12/24 16:59 Not Given ACHS MYKEL Protocol Ondansetron HCl 4 mg 11/11/24 10:22 Ondansetron Inj 2 Mg/Ml Inj 2 Ml IV 12/11/24 10:21 Q6H PRN NAUSEA OR VOMITING Protocol Pantoprazole Sodium 40 mg 11/11/24 21:00 11/13/24 08:33 Pantoprazole Inj 40 Mg Vial IVP 12/11/24 20:59 40 mg Q12HR MYKEL Administration Ropinirole HCl 4 mg 11/12/24 18:00 11/12/24 17:05 Ropinirole Hcl 1 Mg Tablet PO 12/11/24 23:44 4 mg QDAY@1800 MYKEL Administration Plan 74 y/o F with PMHx significant for diabetes, hypertension, hyperlipidemia, restless leg syndrome, left nephrectomy, SBO with ex lap performed 10/28/2024 presented with chief complaint of burning abdominal pain, admitted for SBO and possible cholecystectomy. #Acute gangrenous cholecystitis, s/p lap louisa Patient has abdominal pain, localized epigastrium, worse with palpation. CT imaging showed gallbladder wall thickening and inflammatory changes, follow-up ultrasound showed cholelithiasis and findings suspicious for cholecystitis. Patient received laparoscopic cholecystectomy, which revealed tense nonperforated gangrenous cholecystitis. Patient tolerated procedure well. - Dr. Victoria consulted, appreciate recommendations - Rocephin 1 g IV daily (started 11/11) - Flagyl 500 mg IV every 8 hours (started 11/11) - Dilaudid 0.25 mg IV every 8 hours as needed for severe pain - [place] 5 1 tab p.o. every 6 hours as needed for mild pain - Low-fat diet #SBO Patient presented with abdominal pain, no bowel movement or flatus for 2 days. Patient's history of SBO corrected with ex lap 10/28/2024. Patient received NG tube with 1 L output immediately, HANANE significant improvement in abdominal pain. CT did not show bowel obstruction, was taken after NG tube. NG tube removed, patient found to have acute gangrenous cholecystitis, seems to be source of patient's constipation. - Dr Victoria consulted, appreciate recommendations - Protonix 40 mg IV twice daily - Treatment as above #Diabetes, patient history #Hypertension, patient history Patient has history as stated. A1c 5.5% as of 10/23/2024. - Insulin sliding scale - Consider resuming home antihypertensives when appropriate #Restless leg syndrome, patient history Patient history as stated. - Resume home meds: Requip 4 mg at 5 PM daily DVT prophylaxis: Heparin GI prophylaxis: Protonix Diet: Low-fat diet Lines: Peripheral IV Code status: Full code Plan of care discussed with senior resident Dr. Huerta PGY?[address] Hou. Sergey Santana MD PGY?1
--- NOTE | 2024-11-13 15:10 | PC.SS ---
Rounding note: plan is to advance diet and improve white count.
--- NOTE | 2024-11-13 15:12 | ESPR_ITS ---
Documentation for date of: 11/13/24 Subjective Subjective Narrative: Pt is seen and examined. Pain is improving. She is tolerating liquid diet and had bowel movements. Exam Vital Signs Temp Pulse Resp BP Pulse Ox O2 Del Method O2 Flow Rate 97.7 F 90 18 131/61 H 97 Nasal Cannula 2 11/13/24 11:53 11/13/24 12:00 11/13/24 11:53 11/13/24 11:53 11/13/24 11:53 11/13/24 11:53 11/13/24 11:53 Constitutional Constitutional: no acute distress Routine Abdominal Exam Abdominal: Present soft, normoactive bowel sounds and tenderness (mild mary- incisional tenderness. Incisions are clean, dry and intact); Absent distended Assessment & Plan Assessment Additional comments: POD#1 s/p lap louisa for gangrenous cholecystitis Plan Continue IV antibiotics. Advance to low fat diet. Procedures Procedures Laparoscopic cholecystectomy
[2024-11-13] MEDS: rOPINIRole HCL 1 MG TABLET 4 MG PO (18:11)
--- NOTE | 2024-11-13 19:42 | XR_ITS ---
Examination: AP lateral soft tissue neck 2 views Technique: AP lateral soft tissue neck 2 views Exam date and time: November 13, 20242002 hrs. Indications: Patient fell today difficulty breathing. Findings: Epiglottis does not appear thickened Heavy carotid vascular calcification Mild soft tissue tonsillar prominence Adequate alignment cervical vertebral bodies No prevertebral soft tissue prominence 18 mm at the C4 level Intact odontoid No opaque foreign body Impression: Minimal prevertebral soft tissue prominence Normal epiglottis No opaque foreign body Heavy soft tissue carotid vascular calcification
[2024-11-14] VITALS (8 sets, daily range): BP systolic 140–176; BP diastolic 66–80; PULSE 73–91; RESP 18–94; TEMP 36–36.4; O2SAT 93–96
[2024-11-14] MEDS: metroNIDAZOLE/NS 500 MG IVPB 500 MG/100 ML BAG 200 MG IV ×3 (05:04→22:09)
[2024-11-14 05:39] LABS: Basophils % (Auto) 0 % (0-2.5); Eosinophils # (Auto) 0.1 Thou/mm3 (0.0-0.5); Eosinophils % (Auto) 1 % (0-10); Hematocrit 27.3 % (36.0-46.0); Hemoglobin 9.2 g/dL (12.0-16.0); Immature Granulocytes % (Auto) 1 % (0-0); Immature Granulocytes Auto 0.08 Thou/mm3 (0.00-0.00); Lymphocytes # (Auto) 0.9 Thou/mm3 (1.0-4.8); Lymphocytes % (Auto) 6 % (10-50); Mean Corpuscular HGB Conc 33.7 g/dl (31.0-37.0); Mean Corpuscular Volume 89 fL (80-100); Monocytes # (Auto) 0.8 Thou/mm3 (0.0-0.8); Monocytes % (Auto) 6 % (0-12); Neutrophils # (Auto) 12.7 Thou/mm3 (1.8-7.7); Neutrophils % (Auto) 87 % (37-80); Nucleated Red Blood Cell % 0 /100 WBC (0); Platelet Count 377 Thou/mm3 (140-440); RDW Standard Deviation 41.1 fL (36.4-46.3); Red Blood Count 3.07 Miln/mm3 (4.00-5.20); White Blood Count 14.7 Thou/mm3 (3.6-11.0)
[2024-11-14] MEDS: HYDROcodone/APAP 5/325 TABLET 1 TAB PO ×2 (05:40→13:04)
[2024-11-14 06:10] LABS: Alanine Aminotransferase 15 U/L (10-49); Albumin, Serum 2.9 gm/dL (3.4-4.8); Albumin/Globulin Ratio 1.3 (1.2-2.2); Alkaline Phosphatase 119 U/L (46-116); Anion Gap 7 (7-16); Aspartate Amino Transferase 19 U/L (0-34); BUN/Creatinine Ratio 16 Ratio (12-20); Bilirubin,Total 0.3 mg/dL (0.3-1.2); Blood Urea Nitrogen 13 mg/dL (9-23); Calcium 9.3 mg/dL (8.3-10.6); Calcium (Corrected) 10.2 mg/dL (8.5-10.1); Carbon Dioxide 28.7 mMol/L (20.0-31.0); Chloride 95 mMol/L (98-107); Creatinine (Component) 0.8 mg/dL (0.6-1.3); Estimated Creatinine Clearance 62.2 mL/min (>60); Globulin 2.3 gm/dL (2.3-3.5); Glucose 121 mg/dL (74-106); Magnesium 1.5 mg/dL (1.6-2.6); Osmolality,Calculated 263 (275-295); Phosphorous 2.1 mg/dL (2.4-5.1); Potassium 3.3 mMol/L (3.4-5.1); Sodium 131 mMol/L (136-145); Total Protein 5.2 gm/dL (5.7-8.2); eGFR > 60 See Note
[2024-11-14] MEDS: POTASSIUM CHLORIDE 20 mEq TABCR 40 MEQ PO (09:27)
[2024-11-14] MEDS: NAPH,KPH MBDB 1 PACKET (1.5 GM) PO (09:27)
[2024-11-14] MEDS: Magnesium Sulfate 4 GM Ivpb 4 GM/50 ML BAG IV (09:27)
[2024-11-14] MEDS: DOCUSATE SOD 100 MG CAPSULE PO ×2 (09:28→21:05)
[2024-11-14] MEDS: cefTRIAXone/D5w 1gm IV premix 1 GM/50 ML BAG IV ×2 (09:28→21:06)
[2024-11-14] MEDS: PANTOPRAZOLE INJ 40 MG VIAL IVP ×2 (09:28→21:04)
[2024-11-14] MEDS: ONDANSETRON INJ 2 MG/ML INJ 2 ML 4 MG IV (09:44)
--- NOTE | 2024-11-14 11:36 | PC.SS ---
rounding note: Patient is p/o day 2 of lap louisa. Patient tolerated liquid diet. Pending Dr. Julien perez's.
--- NOTE | 2024-11-14 12:40 | PD.SURPROG ---
Documentation for date of: 11/14/24 Subjective Subjective Narrative: Patient is seen and examined. Her pain is improving. She is tolerating diet without nausea or vomiting and having bowel movements Exam Vital Signs Temp Pulse Resp BP Pulse Ox O2 Del Method O2 Flow Rate 97.4 F 80 18 159/80 H 95 Room Air 2 11/14/24 12:00 11/14/24 12:00 11/14/24 12:00 11/14/24 12:00 11/14/24 12:00 11/14/24 12:00 11/13/24 11:53 Constitutional Constitutional: no acute distress Routine Abdominal Exam Comments: Abdomen is soft and nondistended. Incisions with dressings clean, dry and intact Assessment & Plan Assessment Additional comments: Postop day #2 status post laparoscopic cholecystectomy for gangrenous cholecystitis. WBC is coming down Plan Continue IV antibiotics. Correct electrolytes. If patient continues to improve and WBC trends downward, may discharge home tomorrow Procedures Procedures Laparoscopic cholecystectomy
--- NOTE | 2024-11-14 12:41 | PC.NURSE ---
Patient passed nursing swallow evaluation. Patient and have many question notified doctors. Residents will come and talk to patient and and answers all questions. Will continue to monitor patient.
--- NOTE | 2024-11-14 14:55 | ESPR_ITS ---
<Statement entered by Melisa Hou MD - 11/21/24 08:55> I reviewed above note and agree with findings and plans. I have also personally examined the patient with medicine team and went over assessment and plan with medical team including logistics intern and resident physician. <Statement entered by Юлия Huerta MD - 11/14/24 15:15> Patient was seen and examined at bedside. Over the night patient was complaining of severe dysphagia, sensation of foreign body in the throat, night team obtained neck soft tissue x-ray, which did not reveal any abnormalities. Patient still having sensation, However she is able to drink water. Speech/swallow evaluation was placed, will follow-up with recommendations. Otherwise patient is afebrile, WBC down trended from 26-14.7. Hemoglobin stable 9.2. Patient given bowel movement,-adequate urine output. CMP revealed mild hypokalemia which was replaced. Continue current management. Pain controlled with [place]. I discussed with and supervised the logistics intern physician who took care of this patient. I personally saw and examined the patient and discussed the assessment and plan with the entire medicine team, including my attending , I agree with the assessment and plan as documented below Юлия Huerta M.D. PGY-2 Disclaimer: Despite multiple revisions, due to the dictation software being used, the document bellow may not be free of grammatical errors including phonetic/typographic errors. However, this does not deter from our commitment to providing health care in the patient's best interest in mind. Documentation for date of: 11/14/24 Subjective Subjective Interval history: Overnight: Patient experienced sensation of choking shortly after eating dinner, received soft tissue neck x-ray which was unremarkable. Patient seen examined at bedside, mildly distressed due to sensation of a mass in the back of her throat. Physical exam was unremarkable, however patient endorses dysphagia with solid foods. Patient tolerating liquid intake well. Patient denies fevers, chills, chest pain, shortness of breath. Pending speech therapy eval for dysphagia, will workup further. Exam Vital Signs Temp Pulse Resp BP Pulse Ox O2 Del Method O2 Flow Rate 97.4 F 80 18 159/80 H 95 Room Air 2 11/14/24 12:00 11/14/24 12:00 11/14/24 12:00 11/14/24 12:00 11/14/24 12:00 11/14/24 12:00 11/13/24 11:53 Narrative Exam PE: Gen: Well-developed and well-nourished. HEENT: NCAT, PERRLA, EOMI, MMM, anicteric conjunctivae. CVS: normal S1 and S2. RRR. No M/R/G. Resp: CTA B/L. No rhonchi, rales, crackles or wheezing. Abd: soft, non-distended. Mild right upper quadrant tenderness. MSK: Good ROM in BUE & BLE. No edema or rash. Neuro: CN II-XII grossly intact. Strength 5/5 in BUE & BLE. Alert and oriented x3. Psych: appropriate mood and affect. Objective Labs 11/14/24 05:02 11/14/24 05:02 Labs: Laboratory Results - last 24 hr 11/14/24 05:02 WBC 14.7 H D RBC 3.07 L Hgb 9.2 L Hct 27.3 L MCV 89 MCH 30.0 MCHC 33.7 RDW Std Deviation 41.1 Plt Count 377 Neut % (Auto) 87 H Lymph % (Auto) 6 L [place] % (Auto) 6 Eos % (Auto) 1 Baso % (Auto) 0 Neut # (Auto) 12.7 H Lymph # (Auto) 0.9 L [place] # (Auto) 0.8 Eos # (Auto) 0.1 Baso # (Auto) 0.0 Immature Gran # (Auto) 0.08 H Absolute Nucleated RBC 0.00 Immature Gran % 1 H Nucleated RBC % 0 Sodium 131 L Potassium 3.3 L D Chloride 95 L Carbon Dioxide 28.7 Anion Gap 7 BUN 13 Creatinine 0.8 Estim Creat Clear Calc 62.2 eGFR > 60 BUN/Creatinine Ratio 16 Glucose 121 H Calculated Osmolality 263 L Calcium 9.3 Corrected Calcium 10.2 H Phosphorus 2.1 L Magnesium 1.5 L Total Bilirubin 0.3 AST 19 ALT 15 Alkaline Phosphatase 119 H Total Protein 5.2 L Albumin 2.9 L Globulin 2.3 Albumin/Globulin Ratio 1.3 Quality Measures Quality Measures VTE prophylaxis Advance care planning discussed with:: patient and spouse Assessment & Plan Assessment Current Active Medications: Generic Name Dose Route Start Last Admin Trade Name Freq PRN Reason Stop Dose Admin Acetaminophen 650 mg 11/12/24 08:56 Acetaminophen Supp 650 Mg Supp OK 12/11/24 10:21 Q6HR PRN Fever > 100.4 or pain(1-3) Protocol Hydrocodone Bitart/Acetaminophen 1 tab 11/12/24 13:29 11/14/24 13:04 Hydrocodone/Apap 5/325 Tablet PO 11/17/24 13:28 1 tab Q6HR PRN Administration PAIN SCALE 4-6 (Moderate Dextrose 25 ml 11/11/24 16:00 Dextrose 50%-Water Inj 50 Ml Syringe IV 12/11/24 15:59 Q15MIN PRN BG 50-70 responsive npo pt Dextrose 50 ml 11/11/24 16:00 Dextrose 50%-Water Inj 50 Ml Syringe IV 12/11/24 15:59 Q15MIN PRN BG <50 OR BG <70 & pt unresponsive Docusate Sodium 100 mg 11/12/24 21:00 11/14/24 09:28 Docusate Sod 100 Mg Capsule PO 12/12/24 20:59 100 mg BID MYKEL Administration Protocol Glucagon 1 mg 11/11/24 16:00 Glucagon Inj 1 Mg Vial IM Q15MIN PRN BG <70, and no IV access Hydromorphone HCl 0.25 mg 11/13/24 11:19 Hydromorphone Inj 2 Mg/Ml Vial IVP 11/17/24 13:30 Q8H PRN PAIN SCALE 7-10 (Severe Metronidazole 500 mg in 100 mls @ 200 mls/hr 11/11/24 13:54 11/14/24 13:15 Flagyl 500 Mg Iv IV 11/18/24 13:53 200 mls/hr Q8HR MYKEL Administration Ceftriaxone Sodium/Dextrose 1 gm in 50 mls @ 100 mls/hr 11/12/24 21:00 11/14/24 09:28 Rocephin/D5w 1gm Iv Premix IV 11/19/24 13:28 100 mls/hr Q12HR MYKEL Administration Insulin Human Lispro 0 unit 11/12/24 17:00 11/14/24 11:42 Insulin Lispro (Admelog) 1 Unit/0.01 Ml Unit SC 12/12/24 16:59 Not Given ACHS MYKEL Protocol Ondansetron HCl 4 mg 11/11/24 10:22 11/14/24 09:44 Ondansetron Inj 2 Mg/Ml Inj 2 Ml IV 05/08/25 10:21 4 mg Q6H PRN Administration NAUSEA OR VOMITING Protocol Pantoprazole Sodium 40 mg 11/11/24 21:00 11/14/24 09:28 Pantoprazole Inj 40 Mg Vial IVP 12/11/24 20:59 40 mg Q12HR MYKEL Administration Ropinirole HCl 4 mg 11/12/24 18:00 11/13/24 18:11 Ropinirole Hcl 1 Mg Tablet PO 12/11/24 23:44 4 mg QDAY@1800 MYKEL Administration Plan 74 y/o F with PMHx significant for diabetes, hypertension, hyperlipidemia, restless leg syndrome, left nephrectomy, SBO with ex lap performed 10/28/2024 presented with chief complaint of burning abdominal pain, admitted for SBO and possible cholecystectomy. #Acute gangrenous cholecystitis, s/p lap louisa Patient has abdominal pain, localized epigastrium, worse with palpation. CT imaging showed gallbladder wall thickening and inflammatory changes, follow-up ultrasound showed cholelithiasis and findings suspicious for cholecystitis. Patient received laparoscopic cholecystectomy, which revealed tense nonperforated gangrenous cholecystitis. Patient tolerated procedure well. - Dr. Victoria consulted, appreciate recommendations - Rocephin 1 g IV daily (started 11/11) - Flagyl 500 mg IV every 8 hours (started 11/11) - Dilaudid 0.25 mg IV every 8 hours as needed for severe pain - [place] 5 1 tab p.o. every 6 hours as needed for mild pain #Dysphagia, acute Patient endorsed sensation of choking and difficulty swallowing with solid food. Patient tolerating liquid intake well. Patient has never had experience like this before, describes a feeling of a mass at the base of her throat. Soft tissue neck x-ray was unremarkable. Patient passed bedside swallow screen. - Full liquid diet - Speech therapy eval pending #SBO, resolved Patient presented with abdominal pain, no bowel movement or flatus for 2 days. Patient's history of SBO corrected with ex lap 10/28/2024. Patient received NG tube with 1 L output immediately, HANANE significant improvement in abdominal pain. CT did not show bowel obstruction, was taken after NG tube. NG tube removed, patient found to have acute gangrenous cholecystitis, seems to be source of patient's constipation. - Dr Victoria consulted, appreciate recommendations - Protonix 40 mg IV twice daily - Treatment as above #Diabetes, patient history #Hypertension, patient history Patient has history as stated. A1c 5.5% as of 10/23/2024. - Insulin sliding scale - Consider resuming home antihypertensives when appropriate #Restless leg syndrome, patient history Patient history as stated. - Resume home meds: Requip 4 mg at 5 PM daily DVT prophylaxis: Heparin GI prophylaxis: Protonix Diet: Full liquid diet Lines: Peripheral IV Code status: Full code Plan of care discussed with senior resident Dr. Huerta PGY?[address] Hou. Sergey Santana MD PGY?1
[2024-11-14] MEDS: rOPINIRole HCL 1 MG TABLET 4 MG PO (17:20)
[2024-11-15] VITALS (9 sets, daily range): BP systolic 152–182; BP diastolic 70–82; PULSE 73–89; RESP 18–94; TEMP 36.2–36.6; O2SAT 93–97
[2024-11-15] MEDS: VALSARTAN 80 MG TABLET 160 MG PO (01:26)
--- NOTE | 2024-11-15 01:32 | PC.NURSE ---
Hgb 7.1 and Hct 21.[address] Sutton was made aware. ordered to transfuse 2nd bag of PRBCs.
[2024-11-15] MEDS: metroNIDAZOLE/NS 500 MG IVPB 500 MG/100 ML BAG 200 MG IV ×2 (05:35→13:53)
[2024-11-15 09:21] LABS: Basophils % (Auto) 0 % (0-2.5); Eosinophils # (Auto) 0.2 Thou/mm3 (0.0-0.5); Eosinophils % (Auto) 2 % (0-10); Hematocrit 33.6 % (36.0-46.0); Hemoglobin 10.9 g/dL (12.0-16.0); Immature Granulocytes % (Auto) 1 % (0-0); Immature Granulocytes Auto 0.05 Thou/mm3 (0.00-0.00); Lymphocytes # (Auto) 0.9 Thou/mm3 (1.0-4.8); Lymphocytes % (Auto) 9 % (10-50); Mean Corpuscular HGB Conc 32.4 g/dl (31.0-37.0); Mean Corpuscular Hemoglobin 30.1 pg (25.0-35.0); Mean Corpuscular Volume 93 fL (80-100); Monocytes # (Auto) 0.9 Thou/mm3 (0.0-0.8); Monocytes % (Auto) 8 % (0-12); Neutrophils # (Auto) 8.7 Thou/mm3 (1.8-7.7); Neutrophils % (Auto) 81 % (37-80); Nucleated Red Blood Cell % 0 /100 WBC (0); Platelet Count 375 Thou/mm3 (140-440); RDW Standard Deviation 44.3 fL (36.4-46.3); Red Blood Count 3.62 Miln/mm3 (4.00-5.20); White Blood Count 10.8 Thou/mm3 (3.6-11.0)
[2024-11-15] MEDS: cefTRIAXone/D5w 1gm IV premix 1 GM/50 ML BAG IV (09:27)
[2024-11-15] MEDS: PANTOPRAZOLE INJ 40 MG VIAL IVP (09:27)
[2024-11-15 09:29] LABS: Alanine Aminotransferase 13 U/L (10-49); Albumin, Serum 3.3 gm/dL (3.4-4.8); Albumin/Globulin Ratio 1.2 (1.2-2.2); Alkaline Phosphatase 156 U/L (46-116); Anion Gap 6 (7-16); Aspartate Amino Transferase 16 U/L (0-34); BUN/Creatinine Ratio 10 Ratio (12-20); Bilirubin,Total 0.4 mg/dL (0.3-1.2); Blood Urea Nitrogen 7 mg/dL (9-23); Calcium 9.2 mg/dL (8.3-10.6); Calcium (Corrected) 9.8 mg/dL (8.5-10.1); Carbon Dioxide 28.7 mMol/L (20.0-31.0); Chloride 96 mMol/L (98-107); Creatinine (Component) 0.7 mg/dL (0.6-1.3); Globulin 2.7 gm/dL (2.3-3.5); Glucose 105 mg/dL (74-106); Osmolality,Calculated 260 (275-295); Potassium 3.4 mMol/L (3.4-5.1); Sodium 131 mMol/L (136-145); eGFR > 60 See Note
--- NOTE | 2024-11-15 11:34 | PCS.ST ---
pt with functional swallowing mechanism. pt's tip of ubula making contact iwth tongue. See report for additional details. No c/o swallowing difficulty
--- NOTE | 2024-11-15 12:43 | ESPR_ITS ---
Documentation for date of: 11/15/24 Subjective Subjective Narrative: Patient is seen and examined. She is feeling much better. She is tolerating diet without nausea or vomiting and having bowel movements Exam Vital Signs Temp Pulse Resp BP Pulse Ox O2 Del Method O2 Flow Rate 97.1 F 85 18 162/75 H 97 Room Air 2 11/15/24 12:00 11/15/24 12:00 11/15/24 12:00 11/15/24 12:00 11/15/24 12:00 11/15/24 12:11/15/24 04:00 Constitutional Constitutional: no acute distress Routine Abdominal Exam Abdominal: Present soft, normoactive bowel sounds and tenderness (Minimal mary- incisional tenderness. Incisions are clean, dry and intact); Absent distended Assessment & Plan Assessment Additional comments: Status post laparoscopic cholecystectomy for gangrenous cholecystitis. WBC is normal Plan May discharge home from surgical standpoint. Follow-up with Dr Victoria in 2 weeks Procedures Procedures Laparoscopic cholecystectomy
[2024-11-15] MEDS: HYDROcodone/APAP 5/325 TABLET 1 TAB PO (13:53)
--- NOTE | 2024-11-15 15:02 | ESDS_ITS ---
<Statement entered by Melisa Hou MD - 11/21/24 08:55> I reviewed above note and agree with findings and plans. I have also personally examined the patient with medicine team and went over assessment and plan with medical team including internal communications manager and resident physician. Planned Discharge Date 11/15/24 DS: Providers Provider Date of admission: 11/11/24 10:22 Primary care physician: Anika Antoine PA-C Admitting Provider: Melisa Hou MD Attending Provider on Admission: Melisa Hou MD Consults: 11/11/24 11:30 Consult to General Surgery Stat Comment: Cholecystitis on CT Consulting Provider: Aide Victoria 11/12/24 13:34 Referral Nutritional Services Routine Comment: Referral Wound Care Routine Comment: 11/14/24 05:52 Referral Speech Therapy Routine Comment: 11/15/24 07:43 Referral Speech Therapy Stat Comment: New onset dysphagia Attending Provider on DC: Melisa Hou MD Discharging Provider: Sergey Santana MD DS: Diagnosis Problem List Completed Was Problem List Reviewed/Reconciled?: Yes Hospital Course Hospital Course Hospital course: 74 y/o F with PMHx significant for diabetes, hypertension, hyperlipidemia, restless leg syndrome, left nephrectomy, SBO with ex lap performed 10/28/2024 presented with chief complaint of burning abdominal pain, admitted for SBO and possible cholecystectomy. Patient was taken for emergent cholecystectomy, which showed tense gangrenous cholecystitis without perforation. Procedure was well- tolerated, patient began having bowel movements the day after. Patient did develop dysphagia with solid food, which appears to be related to anxiety regarding patient's condition. Patient improved, able to tolerate diet well. Patient treated IV antibiotics until WBC normalized. Patient stable for discharge from surgery perspective. Patient medically stable and cleared for discharge. Discharge plan: continue all home medications as prescribed we refilled your Ropinirole, please follow up with your PCP in 1-2 weeks after discharge follow up with surgery in 1-2 weeks you can take Tylenol for pain control, 650 mg every 6 hours as needed you may need to follow up with GI doctor to address disphagia that you are experiencing return to ED anytime symptoms worsens Diagnoses: #Acute gangrenous cholecystitis, s/p lap louisa #Dysphagia, acute #SBO, resolved #Diabetes, patient history #Hypertension, patient history #Restless leg syndrome, patient history Plan of care discussed with attending Dr. Hou. Sergey Santana MD PGY? Status at Discharge Overall status at discharge: patient is progressing back to baseline Time Spent with Patient Time attestation: Total time spent providing and/or coordinating discharge services: Time spent: Greater than 30 minutes Exam Vital Signs Temp Pulse Resp BP Pulse Ox O2 Del Method O2 Flow Rate 97.1 F 85 18 162/75 H 97 Room Air 2 11/15/24 12:00 11/15/24 12:00 11/15/24 12:00 11/15/24 12:00 11/15/24 12:00 11/15/24 12:00 11/15/24 04:00 Narrative Exam PE: Gen: Well-developed and well-nourished. HEENT: NCAT, PERRLA, EOMI, MMM, anicteric conjunctivae. CVS: normal S1 and S2. RRR. No M/R/G. Resp: CTA B/L. No rhonchi, rales, crackles or wheezing. Abd: soft, non-distended. Mild right upper quadrant tenderness. MSK: Good ROM in BUE & BLE. No edema or rash. Neuro: CN II-XII grossly intact. Strength 5/5 in BUE & BLE. Alert and oriented x3. Psych: appropriate mood and affect. Discharge Plan Plan Patient Disposition: HOME (Self Care) Patient condition on transfer: Stable Care Plan Goals: continue all home medications as prescribed we refilled your Ropinirole, please follow up with your PCP in 1-2 weeks after discharge follow up with surgery in 1-2 weeks you can take Tylenol for pain control, 650 mg every 6 hours as needed you may need to follow up with GI doctor to address disphagia that you are experiencing return to ED anytime symptoms worsens Prescriptions/Referrals Prescriptions/Med Rec: New ropinirole 1 mg Tablet 2 mg PO QDAY@1800 Qty: 7 0RF Continued duloxetine 30 mg capsule,delayed release(DR/EC) 30 mg PO QDAY omeprazole [Prilosec] 20 MG capsule,delayed release(DR/EC) 20 mg PO QDAY Qty: 0 Patient Comments: TO SUPPRESS GASTRIC ACID SECRETIONS VALSARTAN/HYDROCHLOROTHIAZIDE (VALSARTAN-HCTZ 320-25 MG TAB) 1 EACH tablet 1 tab PO QAMAC Qty: 0 cholecalciferol (vitamin D3) [D3-2000] 2,000 UNIT capsule 2,000 unit PO DAILY Qty: 0 Cyanocobalamin (Vitamin B-12) (B-12) 1,500 MCG TAB.RAPDIS 1,500 mcg PO .qd Qty: 0 duloxetine 60 mg capsule,delayed release(DR/EC) 60 mg PO DAILY Patient Comments: TAKE 1 CAPSULE BY MOUTH EVERY DAY FOR 30 DAYS Mounjaro 15 mg/0.5 mL pen injector 12.5 mg SUBCUT QWEEK Patient Comments: INJECT 15 MG SUBCUTANEOUSLY WEEKLY hydrocodone-acetaminophen 5-325 mg tablet 1 tab PO Q6H MDD 4 PRN (Reason: pain (scale score 7-10)) Qty: 15 0RF atorvastatin 20 mg tablet 20 mg PO QDAY Patient Comments: TAKE 1 TABLET BY MOUTH EVERY DAY Discontinued ropinirole 2 mg tablet 4 mg PO DAILY Patient Comments: TAKE 1 TABLET BY MOUTH EVERY DAY FOR 90 DAYS ropinirole 4 mg tablet 4 mg PO DAILY Patient Comments: TAKE 1 TABLET BY MOUTH EVERY DAY FOR 90 DAYS Referrals: Anika Antoine PA-C [Primary Care Provider] - Patient/Caregiver Discharge Instructions Discharge Activity: activity as tolerated Education Materials: Cholecystectomy, Preventing Surgical Site Infections Print Language: Romanian Activity Restrictions/Additional Instructions: May shower in 24 hours. Wear abdominal binder at all times. Avoid lifting, straining, pulling or pushing for 4 weeks. May take over the counter laxatives if no bowel movement in 2 days. Follow up with Dr. Victoria in 2 weeks, call [phone] for an appointment. Stand Alone Forms: [employer] Info., Patient Portal Info Letter Discharge Order Discharge Orders: Discharge (Routine); Ordered 11/15/24 Ordered By: Юлия Huerta Quality Discharge Quality Measures VTE prophylaxis
--- NOTE | 2024-11-16 16:20 | PC.SS ---
Late entry: SS went over medicare information; pt alert and oriented times 4
== END 2024-11-15 14:55 | disposition home or self-care (01) | DRG 357 ==
LOC: SERX 11-11 10:27 → SERHOLD 11-11 11:17 → S3NX 11-11 18:45
PROVIDERS: Surgery; Admitting Provider Internal Medicine; Emergency Provider Emergency Medicine; PCP Physician Assistant; Visit Provider Internal Medicine
PROC: 0FT44ZZ Resection of Gallbladder, Percutaneous Endoscopic Approach (ICD-10-PCS; CPT 47562; principal; 2024-11-12 11:00)
DX: K56.50 Intestinal adhesions [bands], unspecified as to partial versus complete obstruction (principal); K80.00 Calculus of gallbladder with acute cholecystitis without obstruction; E78.00 Pure hypercholesterolemia, unspecified; K82.A1 Gangrene of gallbladder in cholecystitis; E87.6 Hypokalemia; E11.9 Type 2 diabetes mellitus without complications; R13.10 Dysphagia, unspecified; E78.5 Hyperlipidemia, unspecified; I10 Essential (primary) hypertension; T17.208A Unspecified foreign body in pharynx causing other injury, initial encounter; W44.9XXA Unspecified foreign body entering into or through a natural orifice, initial encounter; F32.A Depression, unspecified; G25.81 Restless legs syndrome; K82.8 Other specified diseases of gallbladder; Z79.899 Other long term (current) drug therapy; Z90.5 Acquired absence of kidney
CPT/HCPCS: 36415; 70360; 70450; 74019; 74177; 76705; 80053; 81001; 83036; 83605; 83735; 84100; 84145; 85025; 85652; 86140; 87040; 87081; 92610; 93225; 96361; 96365; 96367; 96375; 99285; A4217; A4649; J0696; J1100; J1643; J1815; J2371; J2405; J2470; J2543; J2704; J2710; J3010; J3475; J3490; J7030; J7120; Q9967; A9270; J1596; J1836

== ENCOUNTER → 2024-12-08 | Outpatient (CLI) | payer MEDICARE, BC, SELFPAY ==
[2024-12-08 10:52] LABS: Collection Type, Urine Clean Catch
[2024-12-08 11:16] LABS: Basophils # (Auto) 0.1 Thou/mm3 (0.0-0.2); Basophils % (Auto) 1 % (0-2.5); Eosinophils # (Auto) 0.4 Thou/mm3 (0.0-0.5); Eosinophils % (Auto) 5 % (0-10); Hematocrit 32.2 % (36.0-46.0); Hemoglobin 10.2 g/dL (12.0-16.0); Immature Granulocytes % (Auto) 0 % (0-0); Immature Granulocytes Auto 0.03 Thou/mm3 (0.00-0.00); Lymphocytes # (Auto) 2.3 Thou/mm3 (1.0-4.8); Lymphocytes % (Auto) 26 % (10-50); Mean Corpuscular HGB Conc 31.7 g/dl (31.0-37.0); Mean Corpuscular Hemoglobin 29.7 pg (25.0-35.0); Mean Corpuscular Volume 94 fL (80-100); Monocytes # (Auto) 0.5 Thou/mm3 (0.0-0.8); Monocytes % (Auto) 6 % (0-12); Neutrophils # (Auto) 5.4 Thou/mm3 (1.8-7.7); Neutrophils % (Auto) 62 % (37-80); Nucleated Red Blood Cell % 0 /100 WBC (0); Platelet Count 423 Thou/mm3 (140-440); RDW Standard Deviation 47.2 fL (36.4-46.3); Red Blood Count 3.43 Miln/mm3 (4.00-5.20); White Blood Count 8.7 Thou/mm3 (3.6-11.0)
[2024-12-08 11:31] LABS: Parathyroid Hormone Intact 95.3 pg/ml (18.5-88.0)
[2024-12-08 11:41] LABS: Bacteria,Urine Rare; Bilirubin,Urine Negative (Negative); Blood,Urine Negative (Negative); Clarity,Urine Clear (Clear/Hazy); Color,Urine Lt-Yellow (Lt Yel-Yel); Creatinine,Random Urine 58 mg/dL (30-125); Glucose, Urine Negative (Negative); Ketones,Urine Negative (Negative); Leukocyte Esterase,Urine Positive (Negative); Nitrite,Urine Negative (Negative); Protein Total, Random Urine 40 mg/dL (1-14); Protein,Urine Trace (Neg - Trace); RBC,Urine 4 /hpf (0-3); Specific Gravity,Urine 1.008 (1.001-1.035); Squamous Epithelial Cell,Urine 1 /hpf (0-5); Urobilinogen,Urine Negative mg/dL (0.0-1.0); WBC,Urine 11 /hpf (0-5)
[2024-12-08 11:52] LABS: Alanine Aminotransferase 10 U/L (10-49); Albumin, Serum 3.9 gm/dL (3.4-4.8); Albumin/Globulin Ratio 1.4 (1.2-2.2); Alkaline Phosphatase 106 U/L (46-116); Anion Gap 7 (7-16); Aspartate Amino Transferase 21 U/L (0-34); BUN/Creatinine Ratio 6 Ratio (12-20); Bilirubin,Total 0.3 mg/dL (0.3-1.2); Blood Urea Nitrogen < 5 mg/dL (9-23); Calcium 9.3 mg/dL (8.3-10.6); Calcium (Corrected) 9.4 mg/dL (8.5-10.1); Carbon Dioxide 30.4 mMol/L (20.0-31.0); Chloride 103 mMol/L (98-107); Creatinine (Component) 0.9 mg/dL (0.6-1.3); Globulin 2.8 gm/dL (2.3-3.5); Glucose 102 mg/dL (74-106); Osmolality,Calculated 276 (275-295); Phosphorous 3.1 mg/dL (2.4-5.1); Potassium 3.3 mMol/L (3.4-5.1); Sodium 140 mMol/L (136-145); Total Protein 6.7 gm/dL (5.7-8.2); eGFR > 60 See Note
== END | disposition home or self-care (01) ==
LOC: COPL 09:50
PROVIDERS: PCP Physician Assistant; Referring Provider Internal Medicine; Visit Provider Internal Medicine
DX: I12.9 Hypertensive chronic kidney disease with stage 1 through stage 4 chronic kidney disease, or unspecified chronic kidney disease (principal); E11.22 Type 2 diabetes mellitus with diabetic chronic kidney disease; N18.2 Chronic kidney disease, stage 2 (mild); Z90.5 Acquired absence of kidney; E87.1 Hypo-osmolality and hyponatremia
CPT/HCPCS: 36415; 80053; 81001; 82306; 82570; 83970; 84100; 84156; 85025

== ENCOUNTER → 2024-12-23 | Outpatient (CLI) | payer MEDICARE, BC, SELFPAY ==
--- NOTE | 2024-12-23 15:30 | XR_ITS ---
Examination: Pelvic ultrasound, transabdominal, complete Technique: Transabdominal ultrasound of the pelvis performed using grayscale imaging Date and time of exam: December 23, 2024 1506 hours INDICATIONS: Diagnosis endometrial hyperplasia menopause 15 years ago FINDINGS: Uterus 6.3 cm endometrial stripe 21 mm No discrete uterine mass Right ovary 4.3 cm arterial flow 35 x 30 mm cyst Left ovary 2.1 cm arterial flow Mild fluid in the cul-de-sac IMPRESSION: Abnormal thickening of the endometrial stripe, differential would include endometrial hyperplasia, early malignant neoplasm of the endometrium, recommend MRI pelvis follow-up pre and postcontrast
== END | disposition home or self-care (01) ==
LOC: CDIM 14:49
PROVIDERS: PCP Physician Assistant; Referring Provider Physician Assistant; Visit Provider Physician Assistant
DX: N85.00 Endometrial hyperplasia, unspecified (principal)
CPT/HCPCS: 76856

== ENCOUNTER → 2025-02-23 | Outpatient (BNVA) | payer MEDICARE, BC, SELFPAY | END | disposition home or self-care (01) | PROVIDERS: PCP Physician Assistant; Referring Provider Physician Assistant; Visit Provider Urology | DX: D30.02 Benign neoplasm of left kidney (principal); I12.9 Hypertensive chronic kidney disease with stage 1 through stage 4 chronic kidney disease, or unspecified chronic kidney disease; E11.22 Type 2 diabetes mellitus with diabetic chronic kidney disease; N18.9 Chronic kidney disease, unspecified; E78.00 Pure hypercholesterolemia, unspecified | CPT/HCPCS: 81003; 99212; G0463 ==

== ENCOUNTER → 2025-03-23 | Outpatient (CLI) | payer MEDICARE, BC, SELFPAY ==
[2025-03-23 12:03] LABS: Basophils # (Auto) 0.1 Thou/mm3 (0.0-0.2); Basophils % (Auto) 1 % (0-2.5); Eosinophils # (Auto) 0.2 Thou/mm3 (0.0-0.5); Eosinophils % (Auto) 2 % (0-10); Hematocrit 39.1 % (36.0-46.0); Hemoglobin 13.2 g/dL (12.0-16.0); Immature Granulocytes Auto 0.02 Thou/mm3 (0.00-0.00); Lymphocytes # (Auto) 2.0 Thou/mm3 (1.0-4.8); Lymphocytes % (Auto) 27 % (10-50); Mean Corpuscular HGB Conc 33.8 g/dl (31.0-37.0); Mean Corpuscular Hemoglobin 29.6 pg (25.0-35.0); Mean Corpuscular Volume 88 fL (80-100); Monocytes # (Auto) 0.4 Thou/mm3 (0.0-0.8); Monocytes % (Auto) 5 % (0-12); Neutrophils # (Auto) 4.7 Thou/mm3 (1.8-7.7); Neutrophils % (Auto) 64 % (37-80); Nucleated Red Blood Cell # 0.00 Thou/mm3 (0.00-0.00); Nucleated Red Blood Cell % 0 /100 WBC (0); Platelet Count 303 Thou/mm3 (140-440); RDW Standard Deviation 40.2 fL (36.4-46.3); Red Blood Count 4.46 Miln/mm3 (4.00-5.20); White Blood Count 7.3 Thou/mm3 (3.6-11.0)
[2025-03-23 12:09] LABS: Glucose Estimated Average 128 mg/dL (80-131); Hemoglobin A1C 6.1 % Hgb (4.8-6.0)
[2025-03-23 12:11] LABS: Alanine Aminotransferase 35 U/L (10-49); Albumin, Serum 4.5 gm/dL (3.4-4.8); Albumin/Globulin Ratio 1.7 (1.2-2.2); Alkaline Phosphatase 98 U/L (46-116); Anion Gap 8 (7-16); Aspartate Amino Transferase 35 U/L (0-34); BUN/Creatinine Ratio 16 Ratio (12-20); Bilirubin,Total 0.3 mg/dL (0.3-1.2); Blood Urea Nitrogen 16 mg/dL (9-23); Calcium 11.3 mg/dL (8.3-10.6); Calcium (Corrected) 11.3 mg/dL (8.5-10.1); Carbon Dioxide 27.4 mMol/L (20.0-31.0); Cardiac Risk Estimate 3.0 RATIO (3.7-5.6); Chloride 97 mMol/L (98-107); Cholesterol 201 mg/dL (132-200); Creatinine (Component) 1.0 mg/dL (0.6-1.3); Globulin 2.7 gm/dL (2.3-3.5); Glucose 94 mg/dL (74-106); HDL Cholesterol 68 mg/dL (40-60); LDL Cholesterol,Calculated 107 mg/dL (0-130); Osmolality,Calculated 265 (275-295); Phosphorous 3.6 mg/dL (2.4-5.1); Potassium 4.9 mMol/L (3.4-5.1); Sodium 132 mMol/L (136-145); Total Protein 7.2 gm/dL (5.7-8.2); Triglycerides 132 mg/dL (30-150); eGFR 60 See Note
[2025-03-23 12:13] LABS: Ferritin 41 ng/mL (7.3-270.7); Iron 54 mcg/dL (50-170)
== END | disposition home or self-care (01) ==
LOC: COPL 10:14
PROVIDERS: PCP Family Medicine; Referring Provider Internal Medicine; Visit Provider Physician Assistant
DX: D50.9 Iron deficiency anemia, unspecified (principal); E11.22 Type 2 diabetes mellitus with diabetic chronic kidney disease; I12.9 Hypertensive chronic kidney disease with stage 1 through stage 4 chronic kidney disease, or unspecified chronic kidney disease; N18.2 Chronic kidney disease, stage 2 (mild); Z90.5 Acquired absence of kidney; E78.5 Hyperlipidemia, unspecified
CPT/HCPCS: 36415; 80053; 80061; 82728; 83036; 83540; 84100; 85025

== ENCOUNTER → 2025-04-04 | Outpatient (CLI) | payer MEDICARE, BC, SELFPAY ==
--- NOTE | 2025-04-04 14:00 | XR_ITS ---
Examination: MRI pelvis, without intravenous contrast. Exam date and time: April 04, 2025, 1350 hrs. Indications: Thickened endometrial stripe 11 mm on pelvic sonogram December 23, 2024 as well as MRI pelvis April 14, 2023. Technique: Multiple axial, sagittal and coronal images of the pelvis have been obtained with the Siemens high-resolution 1.5 Esther MRI scanner. Images obtained included T2 weighted fat suppressed sagittal sections, TR 3500, TE 46, T2 weighted coronal fat suppressed images, TR 3050, TE 84, T2-weighted transverse fat suppressed images, TR 30-60, TE 63, proton density transverse images, TR 4720, TE 46, and T1 weighted coronal images, TR 560, TE 13. Findings: Partially retroverted uterus, 5.5 x 3.2 x 3.0 cm Abnormal thickened endometrial stripe 11 mm No discrete uterine fundal or uterine body mass Right ovarian simple cyst, 30 mm No solid adnexal mass Urinary bladder intact. No free fluid in the pelvis Impression: Abnormally thickened endometrial stripe, differential would include endometrial hyperplasia, malignant neoplasm of the endometrium
== END | disposition home or self-care (01) ==
LOC: SMRI 13:26
PROVIDERS: PCP Family Medicine; Referring Provider Physician Assistant; Visit Provider Physician Assistant
DX: R93.89 Abnormal findings on diagnostic imaging of other specified body structures (principal)
CPT/HCPCS: 72195

== ENCOUNTER → 2025-04-13 | Outpatient (CLI) | payer MEDICARE, BC, SELFPAY ==
[2025-04-13 16:23] LABS: Free T4 (Free Thyroxine) 1.06 ng/dL (0.89-1.76); Thyroid Stimulating Hormone 5.53 uIU/mL (0.55-4.78)
[2025-04-13 16:26] LABS: Ferritin 48 ng/mL (7.3-270.7)
== END | disposition home or self-care (01) ==
LOC: COPL 14:49
PROVIDERS: PCP Physician Assistant; Referring Provider Physician Assistant; Visit Provider Physician Assistant
DX: L65.9 Nonscarring hair loss, unspecified (principal)
CPT/HCPCS: 36415; 82728; 84439; 84443

== ENCOUNTER 2025-04-21 11:31 | Outpatient (AMB) | payer MEDICARE, MEDICAID, SELFPAY ==
[2025-04-21 11:42] VITALS: BP 135/67; PULSE 80; RESP 16; TEMP 36.8; O2SAT 98; BMI 26.9
--- NOTE | 2025-04-21 11:42 | GYNCLNT_ITS ---
Vital Signs 04/21/25 11:42 Height 1.63 m Height Method Stated Weight 71.441 kg Weight Measurement Method Standing Scale BMI 26.9 BP 135/67 H Blood Pressure Source Automatic Cuff Blood Pressure Location Left Upper Arm Position Sitting Respiration 16 Pulse 80 Pulse Source Monitor Temp 98.2 F Temp Source Oral Pulse Oximetry (%) 98 Oxygen Delivery Method Room Air Allergies/Home Meds Allergies & Medications Allergies walnut Allergy (Verified 04/21/25 11:43) Medication Reconciliation VALSARTAN/HYDROCHLOROTHIAZIDE (VALSARTAN-HCTZ 320-25 MG TAB) 1 tab PO QAMAC ##0 11/10/14 [History Confirmed 04/21/25] omeprazole 20 mg capsule,delayed release (Prilosec) 20 mg PO QDAY ##0 11/10/14 [History Confirmed 04/21/25] Cyanocobalamin (Vitamin B-12) (B-12) 1,500 mcg PO .qd ##0 11/11/14 [History Co nfirmed 04/21/25] cholecalciferol (vitamin D3) 50 mcg (2,000 unit) capsule (D3-2000) 2,000 unit PO DAILY #0 caps 11/11/14 [History Confirmed 04/21/25] duloxetine 30 mg capsule,delayed release 30 mg PO QDAY 03/12/23 [History Confirmed 04/21/25] duloxetine 60 mg capsule,delayed release 60 mg PO DAILY 10/26/24 [History Confirmed 04/21/25] tirzepatide 15 mg/0.5 mL subcutaneous pen injector (Mounjaro) 12.5 mg subcut QWEEK 10/26/24 [History Confirmed 04/21/25] hydrocodone 5 mg-acetaminophen 325 mg tablet 1 tab PO Q6H PRN pain (scale score 7-10) #15 tabs 10/31/24 [Rx Confirmed 04/21/25] atorvastatin 20 mg tablet 20 mg PO QDAY 11/11/24 [History Confirmed 04/21/25] ropinirole 1 mg tablet 2 mg (2 x 1 mg) PO QDAY@1800 #7 tabs 11/15/24 [Rx Confirmed 04/21/25] Intake Visit Data Collection New Patient or Established: Established Patient (seen at [facility] within 3 years) Reason for Visit:: REF Seen by Clinical Staff ONLY (RN/MA): No Stevedore Hold Required: No Do You Feel Safe at Home: Yes Authorities Contacted: N/A PCP or OBGYN visit in last 3 months: Yes Date of Last PCP or OBGYN visit: 02/23/25 Hx Now: No Are you currently on any form of Control: No Pain Present Currently: No Pain Scale Used: Chavira-Toussaint/Numerical Pain scale:: 0 Smoking Status Smoking Status: Never smoker 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 1. Little interest or pleasure in doing things: not at all 2. Feeling down, depressed, or hopeless: not at all Total score: 0 PHQ-9 3. Trouble falling or staying asleep, or sleeping too much: Not at all 4. Feeling tired or having little energy: Not at all 5. Poor appetite or overeating: Not at all 6. Feeling bad about yourself - or that you are a failure or have let yourself or your family down: Not at all 7. Trouble concentrating on things, such as reading the newspaper or watching television: Not at all 8. Moving or speaking so slowly that other people could have noticed? - Or the opposite - being so fidgety or restless that you have been moving around a lot more than usual: not at all 9. Thoughts that you would be better off or of hurting yourself in some way: Not at all Total score: 0 If you checked off any problems, how difficult have these problems made it for you to do your work, take care of things at home, or get along with other people?: not difficult at all Source: Developed by Drs. Raul Ramirez, Cindi Walsh, Andrews Dubon and colleagues, with an educational venkat from [employer]. Depression screen completed yes Social History Living Situation History Housing: House Tobacco History Smoking Status: Never smoker Alcohol History Alcohol Intake: Never Domestic Abuse History Do You Feel Safe at Home: Yes History of Present Illness HPI Narrative Chief Complaint Endometrial hyperplasia on MRI, abnormal endometrial thickness on ultrasound Nicole Saunders, a 74-year-old female, presents on referral from [facility] for evaluation of endometrial hyperplasia found on MRI. She reports no current symptoms, specifically denying any vaginal bleeding or pelvic pain. She states she went through menopause 15 years ago and has not experienced any postmenopausal bleeding. The patient's referral was prompted by incidental findings on imaging studies. She underwent a transabdominal ultrasound on 12/23/2024, which revealed an enlarged endometrial stripe of 21 millimeters. This was followed by an MRI of the pelvis, which showed an abnormal thick endometrial stripe of 11 millimeters. She reports no symptoms that led to these imaging studies, stating, I had no pain, no bleeding. She denies any family history of gynecological cancers on her mother's side, including breast, ovarian, uterine, colon, and pancreatic cancers. The patient reports being sexually active, with her last intercourse occurring one week ago. 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 Surgical History: - Nephrectomy (one kidney removed) for benign tumors Social History: - - Planning a trip to [place] ([facility] and [place]) in May - Sexually active, last intercourse one week ago - Menopause occurred 15 years ago Diagnostic Test Results and Labs: - Ultrasound (12/23/2024): Transabdominal, uterus 6.3 cm, endometrial stripe 21 mm, right ovary 4.3 cm, left ovary 2.1 cm, mild fluid in the cul-de-sac, no discrete uterine mass - MRI pelvis: Retroverted uterus 5.5 cm, endometrial stripe 11 mm (abnormal, thick), no discrete fundal or uterine body mass, no solid mass, urinary bladder intact Exam General General Appearance: alert, in no apparent distress and healthy appearing Head Head exam: atraumatic Neck Neck exam: Present normal inspection and trachea midline Chest Chest inspection: Present normal inspection and symmetric chest wall rise External exam: Present normal external exam; Absent tenderness Neuro Neurological exam: Present oriented X3 Psych Psychiatric exam: Present normal affect and normal mood Office Procedures OB Clinic LOC & Office Proc's Nursing/Assessment Patient Status: Established Patient OB Clinic Nursing Assessment: Medication Reconciliation, Update PMH in EMR and Vital Signs OB Clinic Coordination of Care: Education Complex Pt/Fam, Consent,records obtained, informed consent, Lab and Imaging orders, Results/Orders obtained and Staff clarify orders Established Patient Charge Established Patient Point Assignment: 85 Established Patient Point Charge: EP Level 3 (80-115) Assessment & Plan Diagnosis / Problem List (1) Endometrial hyperplasia: Status: Acute Plan Endometrial hyperplasia Assessment: Patient has an incidental finding of endometrial hyperplasia on imaging studies. Ultrasound from 12/23/2024 showed an endometrial stripe of 21 mm, while MRI of the pelvis revealed an abnormal thick endometrial stripe of 11 mm. These findings are concerning in a postmenopausal woman, as the normal endometrial stripe should be less than 4 mm. Patient denies any vaginal bleeding or pain. She reports going through menopause 15 years ago. No family history of gynecological cancers. Patient has a history of benign kidney tumors. Plan: - Schedule hysteroscopic guided biopsy under sedation within 1-2 months - Informed patient about the procedure: camera insertion, tissue sample collection - Discussed outpatient nature of the procedure with same-day discharge - Plan to perform the procedure after patient's trip to [place] in May, likely in June - Advised patient to wait one week after recent intercourse before the procedure Advanced Care Planning Advance care planning discussed with:: patient
== END 2025-04-21 11:51 | disposition home or self-care (01) ==
LOC: HODSOBC 11:31
PROVIDERS: Supervising Provider Obstetrics & Gynecology; Visit Provider Obstetrics & Gynecology
DX: N85.00 Endometrial hyperplasia, unspecified (principal); I10 Essential (primary) hypertension; E11.9 Type 2 diabetes mellitus without complications; Z79.85 Long-term (current) use of injectable non-insulin antidiabetic drugs; Z79.899 Other long term (current) drug therapy
CPT/HCPCS: 99213; G0463

== ENCOUNTER 2025-06-24 08:44 | Outpatient (AMB) | payer MEDICARE, BC, SELFPAY ==
[2025-06-24 09:06] VITALS: BP 126/73; PULSE 62; RESP 14; TEMP 36.5; O2SAT 98; BMI 27.5
--- NOTE | 2025-06-24 09:06 | GYNCLNT_ITS ---
Vital Signs 06/24/25 09:06 Height 1.63 m Height Method Stated Weight 73.142 kg Weight Measurement Method Standing Scale BMI 27.5 BP 126/73 Blood Pressure Source Automatic Cuff Blood Pressure Location Left Upper Arm Position Sitting Respiration 14 Pulse 62 Pulse Source Monitor Temp 97.7 F Temp Source Oral Pulse Oximetry (%) 98 Oxygen Delivery Method Room Air Allergies/Home Meds Allergies & Medications Allergies walnut Allergy (Verified 06/24/25 09:07) Medication Reconciliation VALSARTAN/HYDROCHLOROTHIAZIDE (VALSARTAN-HCTZ 320-25 MG TAB) 1 tab PO QAMAC ##0 11/10/14 [History Confirmed 06/24/25] omeprazole 20 mg capsule,delayed release (Prilosec) 20 mg PO QDAY ##0 11/10/14 [History Confirmed 06/24/25] Cyanocobalamin (Vitamin B-12) (B-12) 1,500 mcg PO .qd ##0 11/11/14 [History Conf irmed 06/24/25] cholecalciferol (vitamin D3) 50 mcg (2,000 unit) capsule (D3-2000) 2,000 unit PO DAILY #0 caps 11/11/14 [History Confirmed 06/24/25] duloxetine 30 mg capsule,delayed release 30 mg PO QDAY 03/12/23 [History Confirmed 06/24/25] duloxetine 60 mg capsule,delayed release 60 mg PO DAILY 10/26/24 [History Confirmed 06/24/25] tirzepatide 15 mg/0.5 mL subcutaneous pen injector (Mounjaro) 12.5 mg subcut QWEEK 10/26/24 [History Confirmed 06/24/25] hydrocodone 5 mg-acetaminophen 325 mg tablet 1 tab PO Q6H PRN pain (scale score 7-10) #15 tabs 10/31/24 [Rx Confirmed 06/24/25] atorvastatin 20 mg tablet 20 mg PO QDAY 11/11/24 [History Confirmed 06/24/25] ropinirole 1 mg tablet 2 mg (2 x 1 mg) PO QDAY@1800 #7 tabs 11/15/24 [Rx Confirmed 06/24/25] Intake Visit Data Collection New Patient or Established: Established Patient (seen at [facility] within 3 years) Reason for Visit:: PRE OP Seen by Clinical Staff ONLY (RN/MA): No Shuttle Truck Driver Required: No Do You Feel Safe at Home: Yes Authorities Contacted: N/A PCP or OBGYN visit in last 3 months: Yes Hx Now: No Are you currently on any form of Control: No Pain Present Currently: No Pain Scale Used: Chavira-Toussaint/Numerical Pain scale:: 0 Smoking Status Smoking Status: Never smoker Immunizations Flu Vaccine in the Last 12 Months: No Flu Vaccine Exclusion Criteria: Refused by Patient 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 1. Little interest or pleasure in doing things: not at all 2. Feeling down, depressed, or hopeless: not at all Total score: 0 PHQ-9 3. Trouble falling or staying asleep, or sleeping too much: Not at all 4. Feeling tired or having little energy: Not at all 5. Poor appetite or overeating: Not at all 6. Feeling bad about yourself - or that you are a failure or have let yourself or your family down: Not at all 7. Trouble concentrating on things, such as reading the newspaper or watching television: Not at all 8. Moving or speaking so slowly that other people could have noticed? - Or the opposite - being so fidgety or restless that you have been moving around a lot more than usual: not at all 9. Thoughts that you would be better off or of hurting yourself in some way: Not at all Total score: 0 Source: Developed by Drs. Raul Ramirez, Cindi Walsh, Andrews Dubon and colleagues, with an educational venkat from [employer]. Depression screen completed yes Social History Living Situation History Housing: House Tobacco History Smoking Status: Never smoker Alcohol History Alcohol Intake: Never Domestic Abuse History Do You Feel Safe at Home: Yes History of Present Illness HPI Narrative Nicole Saunders is scheduled for a Hysteroscopy and endometrial biopsy tomorrow that involves camera insertion and biopsies. The patient has no questions about the upcoming procedure and has undergone surgery before. She understands the procedure will take approximately 5 minutes with 45 minutes to an hour of recovery time afterward, and that someone will need to drive her home. The patient is aware that pre-operative blood testing and anesthesiologist consultation will likely occur today, and biopsy results should be available by Sunday. She has a history of previous surgery. ROS: Negative except as stated above, limited to FREEZER ASSISTANT and pertinent complaints. Exam General General Appearance: alert, in no apparent distress and healthy appearing Head Head exam: atraumatic Neck Neck exam: Present normal inspection and trachea midline Chest Chest inspection: Present normal inspection and symmetric chest wall rise External exam: Present normal external exam; Absent tenderness Neuro Neurological exam: Present oriented X3 Psych Psychiatric exam: Present normal affect and normal mood Office Procedures OBC Clinic LOC & Office Proc's Nursing/Assessment Patient Status: Established Patient OB Clinic Nursing Assessment: Medication Reconciliation, Update PMH in EMR and Vital Signs OB Clinic Coordination of Care: Complex Care and Chronic Disease 1-5, Consent,records obtained, informed consent, Education Simp Pt/Fam, Lab and Imaging orders, Results/Orders obtained and Staff clarify orders Established Patient Charge Established Patient Point Assignment: 105 Established Patient Point Charge: EP Level 3 (80-115) Assessment & Plan Diagnosis / Problem List (1) Endometrial hyperplasia: Status: Acute Plan Scheduled Biopsy Procedure: - Patient scheduled for Hysteroscopy and endometrial biopsy tomorrow at [facility]. - Procedure involves general anesthesia with camera insertion and tissue sampling. - Patient has previous surgical experience and is familiar with hospital location on 2nd floor. Plan: - Hysteroscopy and endometrial biopsy scheduled for tomorrow at [facility]. - Pre-operative preparation includes blood testing and anesthesiologist consultation, typically done day before procedure. - Hospital will provide specific timing and written instructions. - Patient requires transportation home post-procedure due to anesthesia. - Expected recovery time of 45 minutes to 1 hour before discharge. - Biopsy results anticipated by Sunday with plan to call patient with findings. Advanced Care Planning Advance care planning discussed with:: patient
== END 2025-06-24 09:04 | disposition home or self-care (01) ==
LOC: HODSOBC 08:44
PROVIDERS: Supervising Provider Obstetrics & Gynecology; Visit Provider Obstetrics & Gynecology
DX: N85.00 Endometrial hyperplasia, unspecified (principal)
CPT/HCPCS: 99213; G0463

== ENCOUNTER 2025-06-25 06:45 | Day surgery (SDC) | payer MEDICARE, BC, SELFPAY ==
--- NOTE | 2025-06-24 06:50 | EKG_ITS ---
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
[2025-06-24 10:22] VITALS: BMI 27.8
[2025-06-24 11:01] LABS: Basophils # (Auto) 0.1 Thou/mm3 (0.0-0.2); Basophils % (Auto) 1 % (0-2.5); Eosinophils # (Auto) 0.1 Thou/mm3 (0.0-0.5); Eosinophils % (Auto) 2 % (0-10); Hematocrit 36.7 % (36.0-46.0); Hemoglobin 12.4 g/dL (12.0-16.0); Immature Granulocytes Auto 0.03 Thou/mm3 (0.00-0.00); Lymphocytes # (Auto) 2.2 Thou/mm3 (1.0-4.8); Lymphocytes % (Auto) 26 % (10-50); Mean Corpuscular HGB Conc 33.8 g/dl (31.0-37.0); Mean Corpuscular Hemoglobin 30.6 pg (25.0-35.0); Mean Corpuscular Volume 91 fL (80-100); Monocytes # (Auto) 0.5 Thou/mm3 (0.0-0.8); Monocytes % (Auto) 6 % (0-12); Neutrophils # (Auto) 5.5 Thou/mm3 (1.8-7.7); Neutrophils % (Auto) 65 % (37-80); Nucleated Red Blood Cell # 0.00 Thou/mm3 (0.00-0.00); Nucleated Red Blood Cell % 0 /100 WBC (0); Platelet Count 299 Thou/mm3 (140-440); RDW Standard Deviation 39.8 fL (36.4-46.3); Red Blood Count 4.05 Miln/mm3 (4.00-5.20); White Blood Count 8.5 Thou/mm3 (3.6-11.0)
[2025-06-24 11:18] LABS: Alanine Aminotransferase 18 U/L (10-49); Albumin, Serum 4.7 gm/dL (3.4-4.8); Albumin/Globulin Ratio 2.1 (1.2-2.2); Alkaline Phosphatase 91 U/L (46-116); Anion Gap 8 (7-16); Aspartate Amino Transferase 26 U/L (0-34); BUN/Creatinine Ratio 14 Ratio (12-20); Bilirubin,Total 0.4 mg/dL (0.3-1.2); Blood Urea Nitrogen 17 mg/dL (9-23); Calcium 10.4 mg/dL (8.3-10.6); Calcium (Corrected) 10.4 mg/dL (8.5-10.1); Carbon Dioxide 26.4 mMol/L (20.0-31.0); Chloride 97 mMol/L (98-107); Creatinine (Component) 1.2 mg/dL (0.6-1.3); Estimated Creatinine Clearance 41.7 mL/min (>60); Globulin 2.2 gm/dL (2.3-3.5); Glucose 120 mg/dL (74-106); Osmolality,Calculated 265 (275-295); Potassium 4.9 mMol/L (3.4-5.1); Sodium 131 mMol/L (136-145); Total Protein 6.9 gm/dL (5.7-8.2); eGFR 48 See Note
[2025-06-25] VITALS (7 sets, daily range): BP systolic 98–134; BP diastolic 45–67; PULSE 72–78; RESP 15–20; TEMP 36.2–36.3; O2SAT 96–100; BMI 27.8
[2025-06-25] MEDS: SODIUM CHLORIDE 0.9% 500 ML 500 ML 20 ML IV (07:59)
--- NOTE | 2025-06-25 10:18 | PD.GYNPROC ---
Operative Note - NEONATAL INTENSIVE CARE UNIT NURSE Procedure Date of procedure: 06/25/25 Procedure Performed: Hysteroscopic guided endometrial biopsy Indication: 74-year-old with postmenopausal bleeding and thickened endometrium Anesthesia type: General Procedure description: Informed consent was obtained the patient was taken to the operating room. Identity was confirmed double identifiers and she was placed on the operating table in the dorsal lithotomy position. General anesthesia was administered and the airway was secured. The abdomen and perineum were prepped in the usual sterile fashion. Sterile drapes were applied. A timeout procedure was completed. A self-retaining speculum was introduced into the vagina and the cervix was brought into view. A large polyp was noted to be coming out of the endocervical canal. This was placed under traction and dissected from the base using a Armenta scissor and sent over for pathology. The cervix was now grasped using an Allis forcep and placed under traction. The cervix was serially dilated to 7 mm. The hysteroscope was connected to the fluid management system and introduced under direct visualization. Multiple polyps and thickened bands were noted in the endocervical as well as in the endometrial cavity. Curettage was performed and biopsies were taken from the uterine endometrium. All instruments were withdrawn. Hemostasis was noted to be satisfactory. Patient was taken out of general anesthesia, undraped, skin was cleaned and she was transferred to the recovery room in a stable and awake condition. Patient tolerated the entire procedure well. No complications were encountered. All instrument, sponge and lap counts were correct x 2. Specimen: other Estimated blood loss (ml): 20 Complications: none Surgical staff Operation Date: 06/25/25 09:00 Case Staff SMOKING PIPE LINER: Cosme Herron Diagnosis Discharge Diagnosis (1) Endometrial hyperplasia: Status: Acute Problem List Completed Was Problem List Reviewed/Reconciled?: Yes
--- NOTE | 2025-06-25 10:28 | SUR.PHASEI ---
1028: Pt. AAOx4, vitals stable, breathing unlabored, no complaint of pain or nausea, peripad in place with scant amount of blood, report received from Kristine PAUL and Cam MCLEAN.
--- NOTE | 2025-06-25 11:22 | SUR.PHASEII ---
1122: Pt. AAOx4, vitals stable, breathing unlabored, no complaint of pain or nausea, peripad in place with same amount of blood as arrival to PACU, pt. tolerated sips of juice well, pt. ambulated to wheelchair with steady gait and no assist, no complications. Gave discharge instructions to the pt. and her ride, both verbalized understanding and had no further questions. Pt. left with all personal belongings.
== END 2025-06-25 11:22 | disposition home or self-care (01) ==
PROVIDERS: PCP Physician Assistant; Referring Provider Obstetrics & Gynecology; Visit Provider Obstetrics & Gynecology
PROC: 0U5B8ZZ Destruction of Endometrium, Via Natural or Artificial Opening Endoscopic (ICD-10-PCS; CPT 58563; principal; 2025-06-25 08:45)
DX: N84.1 Polyp of cervix uteri (principal); Z01.810 Encounter for preprocedural cardiovascular examination; N95.0 Postmenopausal bleeding; R93.89 Abnormal findings on diagnostic imaging of other specified body structures
CPT/HCPCS: 58558; 36415; 80053; 85025; 86850; 86900; 86901; 93005; A4217; A4649; J1100; J2250; J2371; J2405; J2704; J2765; J3010; J3490; J7999

== ENCOUNTER → 2025-06-30 | Outpatient (CLI) | payer MEDICARE, BC, SELFPAY ==
[2025-06-30 11:22] LABS: Basophils # (Auto) 0.1 Thou/mm3 (0.0-0.2); Basophils % (Auto) 1 % (0-2.5); Eosinophils # (Auto) 0.1 Thou/mm3 (0.0-0.5); Eosinophils % (Auto) 1 % (0-10); Hematocrit 36.2 % (36.0-46.0); Hemoglobin 12.2 g/dL (12.0-16.0); Immature Granulocytes Auto 0.02 Thou/mm3 (0.00-0.00); Lymphocytes # (Auto) 2.1 Thou/mm3 (1.0-4.8); Lymphocytes % (Auto) 29 % (10-50); Mean Corpuscular HGB Conc 33.7 g/dl (31.0-37.0); Mean Corpuscular Hemoglobin 30.4 pg (25.0-35.0); Mean Corpuscular Volume 90 fL (80-100); Monocytes # (Auto) 0.5 Thou/mm3 (0.0-0.8); Monocytes % (Auto) 7 % (0-12); Neutrophils # (Auto) 4.4 Thou/mm3 (1.8-7.7); Neutrophils % (Auto) 61 % (37-80); Nucleated Red Blood Cell # 0.00 Thou/mm3 (0.00-0.00); Nucleated Red Blood Cell % 0 /100 WBC (0); Platelet Count 315 Thou/mm3 (140-440); RDW Standard Deviation 39.3 fL (36.4-46.3); Red Blood Count 4.01 Miln/mm3 (4.00-5.20); White Blood Count 7.2 Thou/mm3 (3.6-11.0)
[2025-06-30 11:45] LABS: Glucose Estimated Average 103 mg/dL (80-131); Hemoglobin A1C 5.2 % Hgb (4.8-6.0)
[2025-06-30 11:53] LABS: Collection Type, Urine Clean Catch; Squamous Epithelial Cell,Urine 0 /hpf (0-5)
[2025-06-30 12:00] LABS: Alanine Aminotransferase 32 U/L (10-49); Albumin, Serum 4.5 gm/dL (3.4-4.8); Albumin/Globulin Ratio 2.1 (1.2-2.2); Anion Gap 8 (7-16); Aspartate Amino Transferase 31 U/L (0-34); BUN/Creatinine Ratio 12 Ratio (12-20); Bilirubin,Total 0.4 mg/dL (0.3-1.2); Blood Urea Nitrogen 13 mg/dL (9-23); Calcium 10.7 mg/dL (8.3-10.6); Calcium (Corrected) 10.7 mg/dL (8.5-10.1); Carbon Dioxide 26.0 mMol/L (20.0-31.0); Chloride 97 mMol/L (98-107); Creatinine (Component) 1.1 mg/dL (0.6-1.3); Globulin 2.1 gm/dL (2.3-3.5); Glucose 91 mg/dL (74-106); Osmolality,Calculated 262 (275-295); Phosphorous 3.5 mg/dL (2.4-5.1); Potassium 5.0 mMol/L (3.4-5.1); Sodium 131 mMol/L (136-145); Thyroid Stimulating Hormone 3.76 uIU/mL (0.55-4.78); Total Protein 6.6 gm/dL (5.7-8.2); eGFR 53 See Note
[2025-06-30 12:25] LABS: Bacteria,Urine 4+; Bilirubin,Urine Negative (Negative); Blood,Urine 3+ (Negative); Color,Urine Yellow (Lt Yel-Yel); Glucose, Urine Negative (Negative); Ketones,Urine Negative (Negative); Leukocyte Esterase,Urine Positive (Negative); Nitrite,Urine Negative (Negative); PH,Urine 6.5 (5.0-7.0); Protein,Urine 1+ (Neg - Trace); RBC,Urine 101 /hpf (0-3); Specific Gravity,Urine 1.013 (1.001-1.035); Urobilinogen,Urine Negative mg/dL (0.0-1.0); WBC,Urine 1699 /hpf (0-5)
[2025-06-30 12:35] LABS: Creatinine MALB Rnd Ur 104 mg/dL (30-125); Microalbumin Creat Ratio 136 mg/gCrea (<30); Microalbumin, Random Urine 141 mg/L (0-300)
[2025-06-30 12:35] LABS: Alkaline Phosphatase 101 U/L (46-116); Cardiac Risk Estimate 3.1 RATIO (3.7-5.6); Cholesterol 216 mg/dL (132-200); HDL Cholesterol 69 mg/dL (40-60); LDL Cholesterol,Calculated 127 mg/dL (0-130); Triglycerides 101 mg/dL (30-150)
[2025-06-30 12:47] LABS: Parathyroid Hormone Intact 94.4 pg/ml (18.5-88.0)
[2025-06-30 12:49] LABS: Ferritin 40 ng/mL (7.3-270.7); Iron 83 mcg/dL (50-170)
[2025-06-30 12:50] LABS: Vitamin B12 > 2000 pg/mL (211-911); Vitamin D 25 Hydroxy Total 63.7 ng/mL (7.3-40.2)
[2025-06-30 12:53] LABS: Clarity,Urine Cloudy (Clear/Hazy); Culture Indicated,Urine Yes
== END | disposition home or self-care (01) ==
PROVIDERS: PCP Physician Assistant; Referring Provider Internal Medicine; Visit Provider Internal Medicine
DX: I12.9 Hypertensive chronic kidney disease with stage 1 through stage 4 chronic kidney disease, or unspecified chronic kidney disease (principal); E11.22 Type 2 diabetes mellitus with diabetic chronic kidney disease; N18.2 Chronic kidney disease, stage 2 (mild); D63.1 Anemia in chronic kidney disease; Z90.5 Acquired absence of kidney; D50.9 Iron deficiency anemia, unspecified; E78.5 Hyperlipidemia, unspecified; E55.9 Vitamin D deficiency, unspecified; E21.3 Hyperparathyroidism, unspecified
CPT/HCPCS: 36415; 80053; 80061; 81001; 82043; 82306; 82570; 82607; 82728; 83036; 83540; 83970; 84100; 84443; 85025; 87077; 87086; 87186

== ENCOUNTER 2025-07-15 10:21 | Outpatient (AMB) | payer MEDICARE, BC, SELFPAY ==
[2025-07-15 10:32] VITALS: BP 145/73; PULSE 71; RESP 18; TEMP 36.3; O2SAT 95; BMI 27.3
--- NOTE | 2025-07-15 10:32 | GYNCLNT_ITS ---
Vital Signs 07/15/25 10:32 Height 1.63 m Height Method Stated Weight 72.802 kg Weight Measurement Method Standing Scale BMI 27.3 BP 145/73 H Blood Pressure Source Automatic Cuff Blood Pressure Location Right Upper Arm Position Sitting Respiration 18 Pulse 71 Pulse Source Monitor Temp 97.3 F Temp Source Temporal Artery Scan Pulse Oximetry (%) 95 Oxygen Delivery Method Room Air Allergies/Home Meds Allergies & Medications Allergies walnut Allergy (Verified 07/15/25 10:33) Medication Reconciliation omeprazole 20 mg capsule,delayed release (Prilosec) 20 mg PO QDAY ##0 11/10/14 [History Confirmed 07/15/25] Cyanocobalamin (Vitamin B-12) (B-12) 1,500 mcg PO .qd ##0 11/11/14 [History Confirmed 07/15/25] cholecalciferol (vitamin D3) 50 mcg (2,000 unit) capsule (D3-2000) 2,000 unit PO DAILY #0 caps 11/11/14 [History Confirmed 07/15/25] duloxetine 60 mg capsule,delayed release 60 mg PO DAILY 10/26/24 [History Confirmed 07/15/25] tirzepatide 15 mg/0.5 mL subcutaneous pen injector (Mounjaro) 12.5 mg subcut QWEEK 10/26/24 [History Confirmed 07/15/25] ezetimibe 10 mg tablet 10 mg PO DAILY 06/24/25 [History Confirmed 07/15/25] ferrous sulfate 325 mg (65 mg iron) tablet (Feosol) 325 mg PO QDAY 06/24/25 [History Confirmed 07/15/25] ropinirole 4 mg tablet 4 mg PO DAILY 06/24/25 [History Confirmed 07/15/25] valsartan 320 mg tablet 320 mg PO DAILY 06/24/25 [History Confirmed 07/15/25] Intake Visit Data Collection New Patient or Established: Established Patient (seen at [facility] within 3 years) Reason for Visit:: PRE-OP Seen by Clinical Staff ONLY (RN/MA): No Fire Control System Installer Required: No Do You Feel Safe at Home: Yes Authorities Contacted: N/A PCP or OBGYN visit in last 3 months: No Hx Now: No Are you currently on any form of Control: No Pain Present Currently: No Pain Scale Used: Chavira-Toussaint/Numerical Pain scale:: 0 Smoking Status Smoking Status: Never smoker Immunizations Flu Vaccine in the Last 12 Months: No Flu Vaccine Exclusion Criteria: No Exclusion Criteria [employer]: Past Medical History Past Medical History: No Hx Neurological Disorders, No Hx Cardiac Disorders, Yes Hx Hypertension, No Hx Cancer, Yes Hx Blood Disorders, Yes Hx Anemia, No Hx Gastrointestinal Disorders, No Hx Renal Disease (left kidney removed), No Hx Diabetes Mellitus Type 1 and Yes Hx Diabetes Mellitus Type 2 Questionnaires Covid-19 Vaccine Questionnaire Has patient been vacinated for Covid-19 Have you been vacinated for Covid-19: No PHQ-9 PHQ-2 Over the last 2 weeks, how often have you been bothered by any of the following problems? 1. Little interest or pleasure in doing things: not at all 2. Feeling down, depressed, or hopeless: not at all Total score: 0 PHQ-9 3. Trouble falling or staying asleep, or sleeping too much: Not at all 4. Feeling tired or having little energy: Not at all 5. Poor appetite or overeating: Not at all 6. Feeling bad about yourself - or that you are a failure or have let yourself or your family down: Not at all 7. Trouble concentrating on things, such as reading the newspaper or watching television: Not at all 8. Moving or speaking so slowly that other people could have noticed? - Or the opposite - being so fidgety or restless that you have been moving around a lot more than usual: not at all 9. Thoughts that you would be better off or of hurting yourself in some way: Not at all Total score: 0 If you checked off any problems, how difficult have these problems made it for you to do your work, take care of things at home, or get along with other people?: not difficult at all Source: Developed by Drs. Raul Ramirez, Cindi Walsh, Andrews Dubon and colleagues, with an educational venkat from [employer]. Depression screen completed yes Social History Living Situation History Marital Status: Lives With: Family Housing: House Tobacco History Smoking Status: Never smoker Second Hand Smoke Exposure: No Alcohol History Alcohol Intake: Never Domestic Abuse History Do You Feel Safe at Home: Yes History of Present Illness HPI Narrative Nicolestehp Saunders presents for follow-up regarding a cervical polyp that was previously removed. The patient reports she is doing fine and experienced minimal bleeding following the procedure. She states there was only a little bit of bleeding, just enough to require some management, but notes that the bleeding has since stopped. The patient denies any current bleeding and reports some discharge staining but no significant ongoing symptoms. She has a history of recent endocervical polypectomy with removal of benign polyp from internal cervix. ROS: Genitourinary: Negative for bleeding, positive for minimal discharge. Exam General General Appearance: alert, in no apparent distress and healthy appearing Head Head exam: atraumatic Neck Neck exam: Present normal inspection and trachea midline Chest Chest inspection: Present normal inspection and symmetric chest wall rise External exam: Present normal external exam; Absent tenderness Neuro Neurological exam: Present oriented X3 Psych Psychiatric exam: Present normal affect and normal mood Office Procedures [facility] LOC & Office Proc's Nursing/Assessment Patient Status: Established Patient OB Clinic Nursing Assessment: Medication Reconciliation, Update PMH in EMR and Vital Signs OB Clinic Coordination of Care: Complex Care and Chronic Disease 1-5, Education Complex Pt/Fam, Consent,records obtained, informed consent, Lab and Imaging orders, Results/Orders obtained and Staff clarify orders Established Patient Charge Established Patient Point Assignment: 110 Established Patient Point Charge: EP Level 3 (80-115) Assessment & Plan Diagnosis / Problem List (1) Endometrial hyperplasia: Status: Acute Plan Endocervical Polyp, Status Post Removal: - Pathology results show no evidence of cancer or pre-cancerous changes. - Finger-like growth removed from internal part of cervix. - Patient reports minimal bleeding post-procedure which has resolved. - No concerning findings on pathology review. Plan: - Patient cleared with no follow-up required. - Advised that some discharge staining may continue but bleeding should not occur. Advanced Care Planning Advance care planning discussed with:: patient
== END 2025-07-15 10:52 | disposition home or self-care (01) ==
LOC: HODSOBC 10:21
PROVIDERS: PCP Physician Assistant; Referring Provider Physician Assistant; Supervising Provider Obstetrics & Gynecology; Visit Provider Obstetrics & Gynecology
DX: Z48.816 Encounter for surgical aftercare following surgery on the genitourinary system (principal); N85.00 Endometrial hyperplasia, unspecified; I10 Essential (primary) hypertension; E11.9 Type 2 diabetes mellitus without complications; Z79.85 Long-term (current) use of injectable non-insulin antidiabetic drugs; Z79.899 Other long term (current) drug therapy
CPT/HCPCS: 99213; G0463